=== PATIENT | female | born 1975 ===

== ENCOUNTER 2020-08-30 13:56 | Outpatient (REF) | payer OTHER, SELFPAY | END 2020-08-30 13:57 | disposition home or self-care (01) | LOC: HO.LAB 13:56 | PROVIDERS: Visit Provider Internal Medicine | DX: Z20.828 Contact with and (suspected) exposure to other viral communicable diseases (principal) | CPT/HCPCS: C9803; U0003 ==

== ENCOUNTER 2020-08-31 16:00 | Outpatient (REF) | payer OTHER, SELFPAY ==
[2020-08-31 17:34] LABS: TSH reflex Free T4 1.42 mIU/mL (0.32-4.0)
== END 2020-08-31 16:01 | disposition home or self-care (01) ==
LOC: HO.LAB 16:00
PROVIDERS: PCP Internal Medicine; Visit Provider Internal Medicine
DX: E03.9 Hypothyroidism, unspecified (principal)
CPT/HCPCS: 84443

== ENCOUNTER 2020-10-02 09:49 | Outpatient (REF) | payer OTHER, SELFPAY ==
--- NOTE | 2020-10-02 09:53 | MM_ITS ---
EXAMINATION: MM SCREENING DIGITAL BREAST TOMOSYNTHESIS, BILATERAL CLINICAL INFORMATION: Screening. Asymptomatic. The lifetime risk of breast cancer based on the Tyrer-Cuzick Model is 13.5%. COMPARISON: Mammography: None TECHNIQUE: Digital breast tomosynthesis is performed in both the craniocaudal and mediolateral oblique views along with computer-aided detection (CAD). Synthesized 2D images are generated from the tomosynthesis. FINDINGS: There are scattered areas of fibroglandular density (ACR BI-RADS breast composition Category b). There are no significant masses, abnormal calcifications, or other abnormalities. MM/MM tomosynthesis screening BI IMPRESSION: There are no significant changes from prior study. ASSESSMENT: BI-RADS 1: Negative RECOMMENDATION: Routine annual mammography screening. This patient's information was entered into a reminder system with a target due date for their next mammogram.
== END 2020-10-02 09:50 | disposition home or self-care (01) ==
LOC: HO.MAMMO 09:49
PROVIDERS: PCP Internal Medicine; Visit Provider Internal Medicine
DX: Z12.31 Encounter for screening mammogram for malignant neoplasm of breast (principal)
CPT/HCPCS: 77063; 77067

== ENCOUNTER 2020-12-27 05:04 | Emergency (ER) | payer OTHER, SELFPAY ==
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
[2020-12-27 05:50] VITALS: BP 115/75; PULSE 73; RESP 18; TEMP 36.6; O2SAT 99; BMI 27.1
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
== END 2020-12-27 07:06 | disposition home or self-care (01) ==
PROVIDERS: Emergency Provider Emergency Medicine; PCP Internal Medicine
DX: S13.4XXA Sprain of ligaments of cervical spine, initial encounter (principal); S39.012A Strain of muscle, fascia and tendon of lower back, initial encounter; S29.012A Strain of muscle and tendon of back wall of thorax, initial encounter; V43.62XA Car passenger injured in collision with other type car in traffic accident, initial encounter; Y93.89 Activity, other specified; Y92.414 Local residential or business street as the place of occurrence of the external cause; Y99.9 Unspecified external cause status
CPT/HCPCS: 72040; 72070; 72100; 99283

== ENCOUNTER → 2021-01-13 14:29 | Outpatient (BNVA) | payer OTHER, SELFPAY | PROVIDERS: PCP Internal Medicine; Referring Provider Internal Medicine; Visit Provider Physician Assistant | DX: Z90.3 Acquired absence of stomach [part of] (principal); K91.2 Postsurgical malabsorption, not elsewhere classified; M79.3 Panniculitis, unspecified; Z98.84 Bariatric surgery status | CPT/HCPCS: 99212 ==

== ENCOUNTER 2021-01-29 10:21 | Outpatient (REF) | payer OTHER, SELFPAY ==
[2021-01-29 10:57] LABS: MANUAL DIFF FLAG NO
[2021-01-29 11:03] LABS: Basophils Percent Auto 0.8 % (0-2); Eosinophils Absolute Auto 0.1 X10*3/uL (0.0-0.4); Eosinophils Percent Auto 1.4 % (0-4); Hemoglobin 12.7 g/dl (12.0-16.0); Imm Gran Abs Auto 0.01 X10*3/uL (0.00-0.03); Imm Gran Pct Auto 0.2 % (0.0-0.4); Lymphocytes Absolute Auto 1.7 X10*3/uL (1.2-4.9); Lymphocytes Percent Auto 35.3 % (20-40); Mean Corpuscular HGB Conc 31.8 g/dl (31.0-35.0); Mean Corpuscular Hemoglobin 29.9 pg (27.0-33.0); Mean Corpuscular Volume 94.1 fL (80-98); Mean Platelet Volume 10.5 fL (9.4-12.3); Monocytes Absolute Auto 0.5 X10*3/uL (0.1-1.2); Monocytes Percent Auto 10.3 % (2-11); Neutrophils Absolute Auto 2.5 X10*3/uL (2.0-8.3); Platelet Count 296 X10*3/uL (160-400); Red Blood Count 4.25 X10*6/uL (4.20-5.50); Red Cell Distribution Width 12.2 % (11.0-16.0); White Blood Count 4.9 X10*3/uL (4.8-10.8)
[2021-01-29 11:09] LABS: Estimated Average Glucose 91 mg/dL; Hemoglobin A1c % 4.8 %
[2021-01-29 11:28] LABS: Alanine Aminotransferase 22 U/L (0-31); Albumin Level 4.3 g/dL (3.5-5.0); Alkaline Phosphatase 76 U/L (39-117); Anion Gap 9 (12-20); Aspartate Amino Transferase 19 U/L (5-31); Bilirubin Total 0.5 mg/dL (0.0-1.0); Blood Urea Nitrogen 16 mg/dL (9-16); C Reactive Protein 0.08 mg/dL (< or = 0.50); Calcium 9.7 mg/dL (8.4-10.2); Carbon Dioxide 30 mmol/L (22-29); Chloride 107 mmol/L (96-108); Cholesterol 182 mg/dL; Estimated Glomerular Filt Rate > 60; Glucose Fasting 84 mg/dL (60-99); HDL Cholesterol 59 mg/dL; Iron 102 mcg/dL (30-160); LDL Cholesterol Calculated 113 mg/dl; Percent Iron Saturation 30 % (15-50); Potassium 4.2 mmol/L (3.3-5.1); Sodium 142 mmol/L (135-145); Total Iron Binding Capacity 339 mcg/dL (228-428); Total Protein 6.8 g/dL (6.5-8.0); Triglycerides 50 mg/dL; Unsaturated Iron Binding 237 ug/dL
[2021-01-29 11:39] LABS: Ferritin 123 ng/mL (10-250); TSH reflex Free T4 0.96 uIU/mL (0.32-4.0); Vitamin D 25-OH Total 28.2 ng/mL (>30)
[2021-02-01 03:52] LABS: Folate 8.4 ng/mL (> or = 4.0); Vitamin B12 872 pg/mL (200-900)
[2021-02-01 13:33] LABS: Calcium (PTHI) 9.7 mg/dL (8.6-10.2); PTHI 63 pg/mL (14-64)
[2021-02-02 14:01] LABS: Zinc 65 mcg/dL (60-130)
[2021-02-03 10:56] LABS: Vitamin A 29 mcg/dL (38-98)
[2021-02-03 11:22] LABS: Vitamin B1 23 nmol/L (8-30)
== END 2021-01-29 10:22 | disposition home or self-care (01) ==
LOC: HO.LAB 10:21
PROVIDERS: PCP Internal Medicine; Visit Provider Physician Assistant
DX: K91.2 Postsurgical malabsorption, not elsewhere classified (principal); E66.01 Morbid (severe) obesity due to excess calories; Z90.3 Acquired absence of stomach [part of]; Z98.84 Bariatric surgery status
CPT/HCPCS: 36415; 80053; 80061; 82306; 82607; 82728; 82746; 83036; 83525; 83540; 83970; 84425; 84443; 84590; 84630; 85025; 86140

== ENCOUNTER → 2021-02-11 15:40 | Outpatient (BNVA) | payer OTHER, SELFPAY | PROVIDERS: PCP Internal Medicine; Referring Provider Internal Medicine; Visit Provider Dietitian, Registered | DX: E66.3 Overweight (principal); Z68.26 Body mass index [BMI] 26.0-26.9, adult | CPT/HCPCS: 97802 ==

== ENCOUNTER → 2021-02-22 15:29 | Outpatient (BNVA) | payer OTHER, SELFPAY | PROVIDERS: PCP Internal Medicine; Visit Provider Physician Assistant | DX: K91.2 Postsurgical malabsorption, not elsewhere classified (principal); M79.3 Panniculitis, unspecified; Z90.3 Acquired absence of stomach [part of]; Z98.84 Bariatric surgery status | CPT/HCPCS: 99212 ==

== ENCOUNTER → 2021-06-02 13:54 | Outpatient (BNVA) | payer OTHER, SELFPAY | PROVIDERS: PCP Internal Medicine; Referring Provider Internal Medicine; Visit Provider Physician Assistant Surgical | DX: E66.3 Overweight (principal); M79.3 Panniculitis, unspecified; Z98.84 Bariatric surgery status; Z68.29 Body mass index [BMI] 29.0-29.9, adult | CPT/HCPCS: 99212 ==

== ENCOUNTER 2021-09-26 09:22 | Outpatient (REF) | payer OTHER, SELFPAY ==
[2021-09-26 09:51] LABS: Binax Internal Control QC Valid; Binax Now Covid-19 Ag Negative (Negative)
== END 2021-09-26 09:23 | disposition home or self-care (01) ==
LOC: HO.LAB 09:22
PROVIDERS: PCP Student in an Organized Health Care Education/Training Program; Visit Provider Internal Medicine
DX: Z20.822 Contact with and (suspected) exposure to COVID-19 (principal)
CPT/HCPCS: C9803

== ENCOUNTER 2021-10-22 10:17 | Outpatient (REF) | payer OTHER, SELFPAY ==
--- NOTE | ~2021-10-22 | MM_ITS ---
EXAMINATION: MM SCREENING DIGITAL BREAST TOMOSYNTHESIS, BILATERAL CLINICAL INFORMATION: Screening. Asymptomatic. The lifetime risk of breast cancer based on the Tyrer-Cuzick Model is 10%. COMPARISON: Mammography: 10/02/2020 (baseline). TECHNIQUE: Digital breast tomosynthesis is performed in both the craniocaudal and mediolateral oblique views along with computer-aided detection (CAD). Synthesized 2D images are generated from the tomosynthesis. FINDINGS: There are scattered areas of fibroglandular density (ACR BI-RADS breast composition Category b). There are no significant masses, abnormal calcifications, or other abnormalities. Parenchymal pattern is similar to prior baseline exam. The axilla and skin contours are unremarkable. There are no significant changes. MM/MM tomosynthesis screening BI IMPRESSION: No mammographic evidence of malignancy. ASSESSMENT: BI-RADS 1: Negative RECOMMENDATION: Routine annual mammography screening. This patient's information was entered into a reminder system with a target due date for their next mammogram.
== END 2021-10-22 10:18 | disposition home or self-care (01) ==
LOC: HO.MAMMO 10:17
PROVIDERS: PCP Internal Medicine; Visit Provider Internal Medicine
DX: Z12.31 Encounter for screening mammogram for malignant neoplasm of breast (principal)
CPT/HCPCS: 77063; 77067

== ENCOUNTER 2021-12-08 06:06 | Outpatient (REF) | payer OTHER, SELFPAY ==
[2021-12-08 08:21] LABS: Alanine Aminotransferase 27 U/L (0-31); Albumin Level 4.1 g/dL (3.5-5.0); Alkaline Phosphatase 73 U/L (39-117); Anion Gap 11 (12-20); Aspartate Amino Transferase 23 U/L (5-31); Blood Urea Nitrogen 14 mg/dL (9-16); Calcium 9.8 mg/dL (8.4-10.2); Carbon Dioxide 28 mmol/L (22-29); Chloride 105 mmol/L (96-108); Cholesterol 220 mg/dL; Estimated Glomerular Filt Rate > 60; Glucose Fasting 79 mg/dL (60-99); HDL Cholesterol 60 mg/dL; LDL Cholesterol Calculated 150 mg/dl; Potassium 4.4 mmol/L (3.3-5.1); Sodium 140 mmol/L (135-145); Total Protein 6.9 g/dL (6.5-8.0); Triglycerides 52 mg/dL
[2021-12-08 08:43] LABS: TSH reflex Free T4 2.21 uIU/mL (0.32-4.0)
[2021-12-08 08:45] LABS: Thyroid Stimulating Hormone 2.12 uIU/mL (0.32-4.0)
== END 2021-12-08 06:07 | disposition home or self-care (01) ==
LOC: HO.LAB 06:06
PROVIDERS: PCP Internal Medicine; Visit Provider Internal Medicine
DX: E03.9 Hypothyroidism, unspecified (principal); E66.9 Obesity, unspecified; Z68.31 Body mass index [BMI] 31.0-31.9, adult
CPT/HCPCS: 36415; 80053; 80061; 84443

== ENCOUNTER → 2022-01-24 13:53 | Outpatient (BNVA) | payer OTHER, SELFPAY | PROVIDERS: PCP Internal Medicine; Visit Provider Physician Assistant | DX: M65.332 Trigger finger, left middle finger (principal) | CPT/HCPCS: 20550; 99202; J1100 ==

== ENCOUNTER 2022-02-18 07:26 | Outpatient (REF) | payer OTHER, SELFPAY ==
--- NOTE | ~2022-02-18 | XR_ITS ---
EXAMINATION: XR CHEST CLINICAL INFORMATION: Asthma COMPARISON: None TECHNIQUE: 2 views of the chest were obtained. FINDINGS: The lungs are clear. No hyperinflation. No airspace consolidation or groundglass opacity. The costophrenic sulci are well-defined. The heart is normal in size and the hilar and mediastinal contours are normal. No acute bony abnormality. XR/XR chest 2V IMPRESSION: Unremarkable examination.
[2022-02-18 08:30] LABS: Estimated Average Glucose 97 mg/dL
[2022-02-18 08:50] LABS: Alanine Aminotransferase 21 U/L (0-31); Albumin Level 4.3 g/dL (3.5-5.0); Alkaline Phosphatase 74 U/L (39-117); Anion Gap 11 (12-20); Aspartate Amino Transferase 21 U/L (5-31); Bilirubin Total 0.6 mg/dL (0.0-1.0); Blood Urea Nitrogen 13 mg/dL (9-16); Calcium 9.6 mg/dL (8.4-10.2); Carbon Dioxide 29 mmol/L (22-29); Chloride 106 mmol/L (96-108); Estimated Glomerular Filt Rate > 60; Glucose Random 91 mg/dL (60-115); Potassium 4.4 mmol/L (3.3-5.1); Sodium 142 mmol/L (135-145)
[2022-02-18 09:15] LABS: Free T4 (Free Thyroxine) 1.31 ng/dL (0.71-1.85); HCG Quantitative < 2 mIU/mL; Thyroid Stimulating Hormone 1.49 uIU/mL (0.32-4.0)
[2022-02-21 04:18] LABS: Triiodothyronine T3 Free 3.2 pg/mL (2.3-4.2)
== END 2022-02-18 07:27 | disposition home or self-care (01) ==
LOC: HO.XRAY 07:26
PROVIDERS: Absent Provider Internal Medicine; PCP Internal Medicine; Visit Provider Plastic Surgery
DX: Z01.818 Encounter for other preprocedural examination (principal)
CPT/HCPCS: 36415; 71046; 80053; 83036; 84439; 84443; 84481; 84702

== ENCOUNTER 2022-02-20 06:21 | Outpatient (REF) | payer OTHER, SELFPAY ==
--- NOTE | 2022-02-20 | ECG_ITS ---
Test Reason : ABDOMINOPLASTY Blood Pressure : / mmHG Vent. Rate : 067 BPM Atrial Rate : 067 BPM P-R Int : 158 ms QRS Dur : 086 ms QT Int : 388 ms P-R-T Axes : -03 026 001 degrees QTc Int : 409 ms Normal sinus rhythm Normal ECG No previous ECGs available Referred By: Danay [place] Electronically Signed By:EMILIA LI MD
[2022-02-20 07:02] LABS: MANUAL DIFF FLAG NO
[2022-02-20 07:35] LABS: Basophils Percent Auto 0.8 % (0-2); Eosinophils Absolute Auto 0.1 X10*3/uL (0.0-0.4); Eosinophils Percent Auto 1.4 % (0-4); Hematocrit 40.4 % (37.0-47.0); Imm Gran Abs Auto 0.01 X10*3/uL (0.00-0.03); Imm Gran Pct Auto 0.2 % (0.0-0.4); Lymphocytes Absolute Auto 1.6 X10*3/uL (1.2-4.9); Mean Corpuscular HGB Conc 32.2 g/dl (31.0-35.0); Mean Corpuscular Hemoglobin 29.5 pg (27.0-33.0); Mean Corpuscular Volume 91.6 fL (80.0-98.0); Mean Platelet Volume 10.5 fL (9.4-12.3); Monocytes Absolute Auto 0.5 X10*3/uL (0.1-1.2); Monocytes Percent Auto 11.1 % (2-11); Neutrophils Absolute Auto 2.6 x10*3/uL (2.0-8.3); Neutrophils Percent Auto 53.5 % (45-73); Platelet Count 282 X10*3/uL (160-400); Red Blood Count 4.41 X10*6/uL (4.20-5.50); Red Cell Distribution Width 12.2 % (11.0-16.0); White Blood Count 4.9 X10*3/uL (4.8-10.8)
[2022-02-20 08:01] LABS: INTERNATIONAL NORM RATIO 1.1 (0.9-1.1); Prothrombin Time 12.2 SEC (9.9-13.0)
[2022-02-20 08:23] LABS: Alanine Aminotransferase 23 U/L (0-31); Albumin Level 4.2 g/dL (3.5-5.0); Alkaline Phosphatase 70 U/L (39-117); Anion Gap 10 (12-20); Aspartate Amino Transferase 22 U/L (5-31); Bilirubin Total 0.5 mg/dL (0.0-1.0); Blood Urea Nitrogen 15 mg/dL (9-16); Calcium 9.6 mg/dL (8.4-10.2); Carbon Dioxide 28 mmol/L (22-29); Chloride 106 mmol/L (96-108); Cholesterol 194 mg/dL; Estimated Glomerular Filt Rate > 60; Glucose Fasting 93 mg/dL (60-99); HDL Cholesterol 53 mg/dL; LDL Cholesterol Calculated 125 mg/dl; Potassium 4.3 mmol/L (3.3-5.1); Sodium 140 mmol/L (135-145); Total Protein 6.9 g/dL (6.5-8.0); Triglycerides 81 mg/dL
[2022-02-20 08:35] LABS: Appearance Urine CLEAR; Color Urine YELLOW; Glucose Urine UA NEG (NEG); Leukocyte Esterase Urine NEG (NEG); Nitrite Urine NEG (NEG); Specific Gravity - Urine <= 1.005 (1.005-1.025); UACC Culture Trigger NO; Urine Blood TRACE (NEG); Urine Ketones NEG (NEG); Urine Protein NEG (NEG-TRACE)
[2022-02-20 08:57] LABS: RBC Urine 0-2 /HPF (0); WBC Urine 0 /HPF (0-4)
[2022-02-20 09:15] LABS: HBS Num1 0.91 mIU/mL (0-7.99); HBc Num1 0.06 S/CO (0.00-0.79); HBsAGNum1 0.16 S/CO (0.00-0.99); HIV AB/AG Nonreactive (Nonreactive); HIV Num 1 0.08 S/CO (0.00-0.99); Hepatitis B Core Antibody Nonreactive (Nonreactive); Hepatitis B Surface Antigen Negative (Negative); ~HepC Num1 0.09 S/CO (0.00-0.79); ~Hepatitis B Surface Antibody NONREACTIVE (Nonreactive); ~Hepatitis C Antibody Nonreactive (Nonreactive)
[2022-02-20 16:42] LABS: INTERNATIONAL NORM RATIO 1.1 (0.9-1.1); Prothrombin Time 12.2 SEC (9.9-13.0)
[2022-02-20 16:45] LABS: Partial Thromboplastin Time 40.4 SEC (24.1-38.0)
[2022-02-20 16:47] LABS: Estimated Average Glucose 97 mg/dL
[2022-02-20 17:02] LABS: Alanine Aminotransferase 25 U/L (0-31); Albumin Level 4.3 g/dL (3.5-5.0); Alkaline Phosphatase 72 U/L (39-117); Anion Gap 12 (12-20); Aspartate Amino Transferase 25 U/L (5-31); Bilirubin Total 0.3 mg/dL (0.0-1.0); Blood Urea Nitrogen 16 mg/dL (9-16); Calcium 9.7 mg/dL (8.4-10.2); Carbon Dioxide 28 mmol/L (22-29); Chloride 105 mmol/L (96-108); Estimated Glomerular Filt Rate > 60; Glucose Random 113 mg/dL (60-115); Potassium 4.1 mmol/L (3.3-5.1); Sodium 141 mmol/L (135-145)
[2022-02-20 17:24] LABS: HCG Quantitative < 2 mIU/mL; TSH reflex Free T4 1.47 uIU/mL (0.32-4.0)
[2022-02-20 18:19] LABS: Appearance Urine CLEAR; Color Urine YELLOW; Glucose Urine UA NEG (NEG); Leukocyte Esterase Urine TRACE (NEG); Nitrite Urine NEG (NEG); PH 5.5 (5.0-8.0); Specific Gravity - Urine 1.025 (1.005-1.025); Urine Blood NEG (NEG); Urine Ketones NEG (NEG); Urine Protein NEG (NEG-TRACE)
[2022-02-20 18:26] LABS: Bacteria Urine 1+ /LPF; Squamous Epithelial Cell Urine 1+ /LPF
[2022-02-21 04:47] LABS: HIV AB/AG Nonreactive (Nonreactive); HIV Num 1 0.13 S/CO (0.00-0.99)
[2022-02-22 04:04] LABS: Hepatitis A Antibody IgM 0.18 Index (0-0.79); ~Hepatitis A Antibody IgM Nonreactive (Nonreactive)
[2022-02-22 09:02] LABS: Triiodothyronine T3 Free 3.2 pg/mL (2.3-4.2)
[2022-02-23 22:16] LABS: Prot Elec - Albumin 4.1 g/dL (3.8-4.8); Prot Elec - Alpha1 0.2 g/dL (0.2-0.3); Prot Elec - Alpha2 0.6 g/dL (0.5-0.9); Prot Elec - Beta 1 0.5 g/dL (0.4-0.6); Prot Elec - Beta 2 0.4 g/dL (0.2-0.5); Prot Elec - Gamma 0.9 g/dL (0.8-1.7); Prot Elec - Total Protein 6.7 g/dL (6.1-8.1)
== END 2022-02-20 06:22 | disposition home or self-care (01) ==
LOC: HO.LAB 06:21
PROVIDERS: PCP Internal Medicine; Visit Provider Internal Medicine
DX: Z01.818 Encounter for other preprocedural examination (principal); Z11.4 Encounter for screening for human immunodeficiency virus [HIV]; E66.9 Obesity, unspecified; Z68.31 Body mass index [BMI] 31.0-31.9, adult; E78.5 Hyperlipidemia, unspecified
CPT/HCPCS: 36415; 80053; 80061; 81001; 83036; 84165; 84443; 84481; 84702; 85025; 85610; 85730; 86704; 86706; 86709; 86803; 87340; 87389; 93005

== ENCOUNTER 2022-03-30 11:06 | Inpatient (IN) | payer OTHER, SELFPAY ==
--- NOTE | ~2022-03-30 | CT_ITS ---
EXAMINATION: CT ABDOMEN AND PELVIS WITHOUT CONTRAST CLINICAL INFORMATION: Status post abdominoplasty. Erythema and drainage. Evaluate for collection. COMPARISON: 02/13/2020 TECHNIQUE: Multidetector volumetric imaging was performed from the superior aspect of the liver through the pubic symphysis. Sagittal and coronal reformatted images were obtained on the technologist's workstation. No intravenous contrast was administered. This CT examination was performed using dose optimization techniques as appropriate, variously including the following: *Automated exposure control *Adjustment of mA and/or kV according to patient size (this includes techniques or standardized protocols for targeted exams where dose is matched to indication/reason for exam; i.e. extremities or head) *Use of iterative reconstruction technique DLP: 656 mGy-cm FINDINGS: Evaluation of the soft tissue structures is limited by the lack of intravenous contrast. LUNG BASES: The visualized lung bases are unremarkable. LIVER, GALLBLADDER, AND BILIARY TREE: The liver is normal in size, shape, and attenuation. No focal hepatic lesion or biliary ductal dilatation is present. The gallbladder is unremarkable with no evidence of radiopaque gallstones, gallbladder wall thickening, or obvious pericholecystic inflammatory changes. PANCREAS: Normal contour. SPLEEN: Not enlarged. ADRENAL GLANDS: Small left adrenal adenoma. KIDNEYS AND URETERS: Symmetric in size. No hydronephrosis or hydroureter. No renal calculus. No perinephric stranding. BLADDER: Unremarkable. GASTROINTESTINAL TRACT: Status post gastric bypass. Unopacified loops of small and large bowel are of normal caliber. No small bowel obstruction. Appendix is within normal limits. ABDOMINAL WALL: Status post abdominoplasty with expected postsurgical changes. There is skin thickening of the lower abdominal wall. There is a fluid collection within the subcutaneous fat of the lower abdominal wall measuring 8.3 x 2.0 x 5.9 cm. There is diffuse edema within the subcutaneous tissues of the mid to lower abdominal wall. There is a significant defect within the rectus abdominous musculature. There are 2 collections containing fluid and gas within the supraumbilical anterior abdominal wall measuring 1.0 x 2.1 x 2.0 cm and 1.9 x 1.0 x 2.0 cm. There is subcutaneous infiltration of the right lateral abdominal wall on image 25 series 3. LYMPH NODES: Prominent inguinal lymph nodes are likely on a reactive basis. VASCULAR: Normal caliber abdominal aorta. PELVIC VISCERA: Uterus is surgically absent. OSSEOUS STRUCTURES: No destructive bone lesions. CT/CT abdomen pelvis wo con IMPRESSION: Findings likely representing cellulitis involving the lower abdominal wall with extensive skin thickening and subcutaneous edema. There is a subcutaneous fluid collection measuring 8.3 x 2.0 x 5.9 cm. There are small collections containing fluid and gas in the supraumbilical region measuring 1.0 x 2.1 x 2.0 cm and 1.9 x 1.0 x 2.0 cm. Infection cannot be excluded.
[2022-03-30 11:36] VITALS: BP 104/72; PULSE 118; RESP 18; TEMP 37.2; O2SAT 97; BMI 29.7
--- NOTE | 2022-03-30 14:58 | ED.ABDPAIN ---
HPI - Abdominal Pain General Chief Complaint: Abdominal Pain Stated Complaint: abd pain Time Seen by Provider: 03/30/22 14:30 Source: patient Mode of arrival: ambulatory History of Present Illness HPI narrative: 46-year-old female who presents status post abdominal plasty on 03/16 in [facility] and is now complaining of purulence drainage from the incision site as well as abdominal pain. She denies any fevers or chills, dysuria, nausea, vomiting, diarrhea. Related Data Previous Rx's Medication Instructions Recorded levothyroxine 75 mcg tablet 75 mcg PO DAILY #90 tabs 02/19/22 Allergies Allergy/AdvReac Type Severity Reaction Status Date / Time No Known Allergies Allergy Verified 03/30/22 11:36 [No Known Allergies*] Review of Systems Review of Systems Pertinent positives and negatives as stated in HPI 10 point review of systems is otherwise negative. [facility] Past Medical History Source: nursing notes reviewed Medical History Class 1 obesity with body mass index (BMI) of 31.0 to 31.9 in adult Hypothyroidism Intestinal malabsorption following gastrectomy Muscle spasm Overweight Panniculitis Physical exam Pre-op evaluation Trigger finger, left middle finger URI (upper respiratory infection) Vitamin A deficiency Vitamin D deficiency Surgical History History of carpal tunnel release History of total abdominal hysterectomy and bilateral salpingo-oophorectomy S/P laparoscopic sleeve gastrectomy Family History Family History Father No problems noted. Mother Hypertension Paternal Aunt Breast cancer Paternal Grandfather Hypertension Diabetes CVD (cardiovascular disease) Stroke Social History Social History Housing: House Alcohol intake: never Patient Tobacco Use Status: Never used Tobacco e-Cigarette/Vaping Use: Never Used Second Hand Smoke Exposure: No Use of substances other than those prescribed or required for medical reasons: No Advance Directives: No Advance Directives Information Provided: No service: No Current occupational status: unemployed Current occupational exposures/hazards: No Cognitive needs: No Hearing needs: No Vision needs: Yes Physical Exam ED Vital Signs: Vital Signs - 24 hr 03/30/22 11:36 03/30/22 15:11 03/30/22 17:29 Temperature 98.9 F 99.4 F 99.6 F Pulse Rate 118 H 95 99 Respiratory Rate 18 18 14 Blood Pressure 104/72 116/71 118/80 Pulse Oximetry 97 100 98 Oxygen Delivery Method Room Air Room Air Room Air BMI result Body Mass Index 29.7 VITAL SIGNS: Reviewed. GENERAL: Well developed, well nourished, in no acute distress. HEAD: Normocephalic/atraumatic EYES: PERRLA, EOMI EARS: Ext canals without abnormality OROPHARYNX: no oral lesions noted, posterior pharynx clear LUNGS: Normal breath sounds. No adventitious sounds or accessory muscle use. SpO2<97> CARDIOVASCULAR: Regular rate and rhythm without noted murmurs ABDOMEN: Soft, non-tender, there is a well-healing incision noted across lower abdomen, however there is evidence of cellulitic/indurated skin changes on the superior aspect and on pressing very liquid, dark fluid is expressed, non-distended with bowel sounds. MUSCULOSKELETAL: No tenderness, deformities, or effusions noted on gross inspection. EXTREMITIES: No cyanosis, clubbing or edema. SKIN: Inspection of the skin reveals no rashes NEUROLOGIC: Alert and oriented x 4. Strength and sensation to light touch were grossly intact x 4. Course Course Course Narrative: 1500: 46-year-old female with history and clinical presentation consistent with possible cellulitis of the abdominal wall after abdomioplasty. Review of all investigations consistent with abdominal wall cellulitis as well as abscess versus seroma, patient received IV fluid/lactic acid/blood culture/antibiotics. This case was discussed with the on-call surgeon who accepts admission. MDM - Abdominal Pain Lab Data Result diagrams: 03/30/22 15:23 03/30/22 15:23 Labs: Lab Results 03/30/22 03/30/22 03/30/22 Range/Units 15:23 15:23 15:23 WBC 12.3 H (4.8-10.8) X10*3/uL RBC 3.65 L (4.20-5.50) X10*6/uL Hgb 10.5 L (12.0-16.0) g/dl Hct 33.0 L (37.0-47.0) % MCV 90.4 (80.0-98.0) fL MCH 28.8 (27.0-33.0) pg MCHC 31.8 (31.0-35.0) g/dl RDW 12.2 (11.0-16.0) % Plt Count 378 D (160-400) X10*3/uL MPV 9.7 (9.4-12.3) fL Immature Gran % (Auto) 0.3 (0.0-0.4) % Neut % (Auto) 75.8 H (45-73) % Lymph % (Auto) 13.5 L (20-40) % [place] % (Auto) 8.7 (2-11) % Eos % (Auto) 1.2 (0-4) % Baso % (Auto) 0.5 (0-2) % Lymph # (Auto) 1.7 (1.2-4.9) X10*3/uL [place] # (Auto) 1.1 (0.1-1.2) X10*3/uL Eos # (Auto) 0.2 (0.0-0.4) X10*3/uL Baso # (Auto) 0.1 (0.0-0.2) X10*3/uL Abs Immat Gran (auto) 0.04 H (0.00-0.03) X10*3/uL Absolute Neuts (auto) 9.4 H (2.0-8.3) x10*3/uL Absolute Nucleated RBC 0.000 (0.0-0.012) X10*3/uL Nucleated RBC % (auto) 0.0 (0.0-0.2) /100WBC Sodium 139 (135-145) mmol/L Potassium 4.0 (3.3-5.1) mmol/L Chloride 102 (96-108) mmol/L Carbon Dioxide 28 (22-29) mmol/L Anion Gap 13 (12-20) BUN 9 (9-16) mg/dL Creatinine 0.64 (0.5-1.4) mg/dL Estim Creat Clear Calc 118.2 Estimated GFR > 60 Random Glucose 98 (60-115) mg/dL Lactic Acid 0.7 (0.5-2.0) mmol/L Calcium 9.1 D (8.4-10.2) mg/dL Total Bilirubin 0.3 (0.0-1.0) mg/dL AST 16 (5-31) U/L ALT 17 (0-31) U/L Alkaline Phosphatase 69 (39-117) U/L Total Protein 6.4 L (6.5-8.0) g/dL Albumin 3.8 (3.5-5.0) g/dL Urine Color Urine Appearance Urine pH (5.0-8.0) Ur Specific [place] (1.005-1.025) Urine Protein (NEG-TRACE) MG/DL Urine Glucose (UA) (NEG) MG/DL Urine Ketones (NEG) MG/DL Urine Blood (NEG) Urine Nitrite (NEG) Ur Leukocyte Esterase (NEG) Urine Test (NEGATIVE) 03/30/22 03/30/22 Range/Units 16:25 16:25 WBC (4.8-10.8) X10*3/uL RBC (4.20-5.50) X10*6/uL Hgb (12.0-16.0) g/dl Hct (37.0-47.0) % MCV (80.0-98.0) fL MCH (27.0-33.0) pg MCHC (31.0-35.0) g/dl RDW (11.0-16.0) % Plt Count (160-400) X10*3/uL MPV (9.4-12.3) fL Immature Gran % (Auto) (0.0-0.4) % Neut % (Auto) (45-73) % Lymph % (Auto) (20-40) % [place] % (Auto) (2-11) % Eos % (Auto) (0-4) % Baso % (Auto) (0-2) % Lymph # (Auto) (1.2-4.9) X10*3/uL [place] # (Auto) (0.1-1.2) X10*3/uL Eos # (Auto) (0.0-0.4) X10*3/uL Baso # (Auto) (0.0-0.2) X10*3/uL Abs Immat Gran (auto) (0.00-0.03) X10*3/uL Absolute Neuts (auto) (2.0-8.3) x10*3/uL Absolute Nucleated RBC (0.0-0.012) X10*3/uL Nucleated RBC % (auto) (0.0-0.2) /100WBC Sodium (135-145) mmol/L Potassium (3.3-5.1) mmol/L Chloride (96-108) mmol/L Carbon Dioxide (22-29) mmol/L Anion Gap (12-20) BUN (9-16) mg/dL Creatinine (0.5-1.4) mg/dL Estim Creat Clear Calc Estimated GFR Random Glucose (60-115) mg/dL Lactic Acid (0.5-2.0) mmol/L Calcium (8.4-10.2) mg/dL Total Bilirubin (0.0-1.0) mg/dL AST (5-31) U/L ALT (0-31) U/L Alkaline Phosphatase (39-117) U/L Total Protein (6.5-8.0) g/dL Albumin (3.5-5.0) g/dL Urine Color YELLOW Urine Appearance CLEAR Urine pH 6.0 (5.0-8.0) Ur Specific [place] 1.015 (1.005-1.025) Urine Protein NEG (NEG-TRACE) MG/DL Urine Glucose (UA) NEG (NEG) MG/DL Urine Ketones NEG (NEG) MG/DL Urine Blood NEG (NEG) Urine Nitrite NEG (NEG) Ur Leukocyte Esterase NEG (NEG) Urine Test NEGATIVE (NEGATIVE) Discharge Plan Discharge Clinical Impression: Abdominal wall cellulitis, Fluid collection at surgical site Patient Disposition: Admitted As Inpatient Prescriptions: No Action levothyroxine 75 mcg tablet 75 mcg PO DAILY Qty: 90 1RF
[2022-03-30 15:11] VITALS: BP 116/71; PULSE 95; RESP 18; TEMP 37.4; O2SAT 100
[2022-03-30] MEDS: 0.9 % Sodium Chloride 1,000 ML 999 ML IV (15:24)
[2022-03-30 15:30] LABS: MANUAL DIFF FLAG NO
[2022-03-30 15:32] LABS: Basophils Absolute Auto 0.1 X10*3/uL (0.0-0.2); Basophils Percent Auto 0.5 % (0-2); Eosinophils Absolute Auto 0.2 X10*3/uL (0.0-0.4); Eosinophils Percent Auto 1.2 % (0-4); Hemoglobin 10.5 g/dl (12.0-16.0); Imm Gran Abs Auto 0.04 X10*3/uL (0.00-0.03); Imm Gran Pct Auto 0.3 % (0.0-0.4); Lymphocytes Absolute Auto 1.7 X10*3/uL (1.2-4.9); Lymphocytes Percent Auto 13.5 % (20-40); Mean Corpuscular HGB Conc 31.8 g/dl (31.0-35.0); Mean Corpuscular Hemoglobin 28.8 pg (27.0-33.0); Mean Corpuscular Volume 90.4 fL (80.0-98.0); Mean Platelet Volume 9.7 fL (9.4-12.3); Monocytes Absolute Auto 1.1 X10*3/uL (0.1-1.2); Monocytes Percent Auto 8.7 % (2-11); Neutrophils Absolute Auto 9.4 x10*3/uL (2.0-8.3); Neutrophils Percent Auto 75.8 % (45-73); Platelet Count 378 X10*3/uL (160-400); Red Blood Count 3.65 X10*6/uL (4.20-5.50); Red Cell Distribution Width 12.2 % (11.0-16.0); White Blood Count 12.3 X10*3/uL (4.8-10.8)
[2022-03-30 15:48] LABS: Lactic Acid 0.7 mmol/L (0.5-2.0)
[2022-03-30 15:52] LABS: Alanine Aminotransferase 17 U/L (0-31); Albumin Level 3.8 g/dL (3.5-5.0); Alkaline Phosphatase 69 U/L (39-117); Anion Gap 13 (12-20); Aspartate Amino Transferase 16 U/L (5-31); Bilirubin Total 0.3 mg/dL (0.0-1.0); Blood Urea Nitrogen 9 mg/dL (9-16); Calcium 9.1 mg/dL (8.4-10.2); Carbon Dioxide 28 mmol/L (22-29); Chloride 102 mmol/L (96-108); Creatinine Clr Calc Pharmacy 118.2; Estimated Glomerular Filt Rate > 60; Glucose Random 98 mg/dL (60-115); Sodium 139 mmol/L (135-145); Total Protein 6.4 g/dL (6.5-8.0)
[2022-03-30 16:33] LABS: Appearance Urine CLEAR; Color Urine YELLOW; Glucose Urine UA NEG (NEG); Leukocyte Esterase Urine NEG (NEG); Nitrite Urine NEG (NEG); Specific Gravity - Urine 1.015 (1.005-1.025); Urine Blood NEG (NEG); Urine Ketones NEG (NEG); Urine Protein NEG (NEG-TRACE)
[2022-03-30 16:35] LABS: UPreg QC Valid YES; Urine Pregnancy NEGATIVE (NEGATIVE)
[2022-03-30 17:29] VITALS: BP 118/80; PULSE 99; RESP 14; TEMP 37.6; O2SAT 98
[2022-03-30] MEDS: Piperacillin Sodium/Tazobactam 3.375 GM in 0.9 % Sodium Chloride 50 ML IV ×2 (17:31→22:42)
[2022-03-30 18:38] LABS: COVID-19 Test Negative (Negative)
--- NOTE | 2022-03-30 19:08 | PHA.MEDREC ---
Pharmacy Consult ? Medication Reconciliation Pharmacy has completed the medication reconciliation.
--- NOTE | 2022-03-30 20:06 | PM.HPGS ---
History of Present Illness History of Present Illness Date of Service: 03/30/22 Chief complaint: abd pain Narrative: Marie Thurman is a 46 year old female who on 03/16 had abdominoplasty and bilateral brachioplasty in [place] - about 5 years ago had gastric bypass in [place] and lost 100lbs. Left [place] and returned to [place] in and yesterday felt abdomen firm and draining fluid. came to ER now. no fever. arm wounds doing well. talked to her surgeon who told her to stop wearing abdo binder and come to the ER. otherwise healthy Review of Systems Review of Systems: Yes all other systems are reviewed and are negative PMFSH Past Medical History Medical History Class 1 obesity with body mass index (BMI) of 31.0 to 31.9 in adult Hypothyroidism Intestinal malabsorption following gastrectomy Muscle spasm Overweight Panniculitis Physical exam Pre-op evaluation Trigger finger, left middle finger URI (upper respiratory infection) Vitamin A deficiency Vitamin D deficiency Family History Family History Father No problems noted. Mother Hypertension Paternal Aunt Breast cancer Paternal Grandfather Hypertension Diabetes CVD (cardiovascular disease) Stroke Surgical History Surgical History History of carpal tunnel release History of total abdominal hysterectomy and bilateral salpingo-oophorectomy S/P laparoscopic sleeve gastrectomy Social History Social History Housing: House Alcohol intake: never Patient Tobacco Use Status: Never used Tobacco e-Cigarette/Vaping Use: Never Used Second Hand Smoke Exposure: No Use of substances other than those prescribed or required for medical reasons: No Advance Directives: No Advance Directives Information Provided: No service: No Current occupational status: unemployed Current occupational exposures/hazards: No Cognitive needs: No Hearing needs: No Vision needs: Yes Meds Allergies Allergy/AdvReac Type Severity Reaction Status Date / Time No Known Allergies Allergy Verified 03/30/22 11:36 [No Known Allergies*] Physical Exam Vital Signs: Vital Signs: Last Vital Signs Temp 99.6 F 03/30/22 17:29 Pulse 99 03/30/22 17:29 Resp 14 07/28/22 17:29 BP 118/80 03/30/22 17:29 Pulse Ox 98 03/30/22 17:29 O2 Del Method 03/30/22 17:29 BMI result Body Mass Index 29.7 Const: General: cooperative, healthy appearing, comfortable and no acute distress Orientation/consciousness: oriented to person, oriented to place and oriented to time HEENT: Head: Yes normal to inspection Eyes: General: appearance normal, both eyes and all related structures Resp: Effort & Inspection: normal respiratory effort Auscultation: clear to auscultation bilaterally Cardio: Rate: regular rate Rhythm: regular rhythm GI: Other: soft nontender nondistended Skin: Other: brachioplasty incisions look good the abdominal midline area has erythematous changes consistent with cellulitis. there is some drainage of cloudy yellow fluid consistent with fat necrosis does not look like abscess fluid umbilical incision looks ok mid abdomen along the incision with indurated tissue but not tender Neuro: General: oriented to person, oriented to place and oriented to time Extrem: General: Yes normal to inspection and Yes full ROM Results Results Labs: Short CBC 03/30/22 Range/Units 15:23 WBC 12.3 H (4.8-10.8) X10*3/uL Hgb 10.5 L (12.0-16.0) g/dl Hct 33.0 L (37.0-47.0) % Plt Count 378 D (160-400) X10*3/uL BMP 03/30/22 15:23 Sodium 139 Potassium 4.0 Chloride 102 Carbon Dioxide 28 BUN 9 Creatinine 0.64 Calcium 9.1 D Liver Function 03/30/22 Range/Units 15:23 Total Bilirubin 0.3 (0.0-1.0) mg/dL AST 16 (5-31) U/L ALT 17 (0-31) U/L Alkaline Phosphatase 69 (39-117) U/L Albumin 3.8 (3.5-5.0) g/dL Urine 03/30/22 03/30/22 Range/Units 16:25 16:25 Urine Color YELLOW Urine Appearance CLEAR Urine pH 6.0 (5.0-8.0) Ur Specific [place] 1.015 (1.005-1.025) Urine Protein NEG (NEG-TRACE) MG/DL Urine Glucose (UA) NEG (NEG) MG/DL Urine Test NEGATIVE (NEGATIVE) Abdomen CT scan report/results: report reviewed and image reviewed CT scan - pelvis: report reviewed and image reviewed Assessment and Plan (1) Abdominal wall cellulitis: Status: Acute Plan 46 year old female s/p 2 weeks abdominoplasty and bilateral brachioplasty in [place] with some abdominal cellulitis and seroma - doubt infection /abscess at this point admit , iv zosy and watch. if worsens despite antibiotics consider opening small area of incision and draining seroma fluid/fat necrosis - at this point i dont think its a true abscess explained to pt who understands and agrees with the plan Quality Stroke Does the patient have a stroke diagnosis?: No VTE Prior VTE?: No VTE Risk Level:: Surgical - low VTE Device Contraindication: N/A - Device Ordered VTE Drug Contraindication: Treatment Not Indicated Procedures Date of Service Date of Service: 03/30/22
[2022-03-30 22:00] VITALS: BP 104/55; PULSE 101; RESP 16; TEMP 37.3; O2SAT 98
[2022-03-31] MEDS: Piperacillin Sodium/Tazobactam 3.375 GM in 0.9 % Sodium Chloride 50 ML IV ×4 (05:41→23:03)
[2022-03-31 05:43] VITALS: BP 99/61; PULSE 78; RESP 14; O2SAT 98
[2022-03-31 06:42] LABS: MANUAL DIFF FLAG NO
[2022-03-31 06:50] LABS: Basophils Absolute Auto 0.1 X10*3/uL (0.0-0.2); Basophils Percent Auto 0.7 % (0-2); Eosinophils Absolute Auto 0.3 X10*3/uL (0.0-0.4); Eosinophils Percent Auto 2.4 % (0-4); Hematocrit 29.6 % (37.0-47.0); Hemoglobin 9.5 g/dl (12.0-16.0); Imm Gran Abs Auto 0.04 X10*3/uL (0.00-0.03); Imm Gran Pct Auto 0.4 % (0.0-0.4); Lymphocytes Absolute Auto 1.6 X10*3/uL (1.2-4.9); Lymphocytes Percent Auto 15.3 % (20-40); Mean Corpuscular HGB Conc 32.1 g/dl (31.0-35.0); Mean Corpuscular Hemoglobin 28.9 pg (27.0-33.0); Mean Platelet Volume 9.8 fL (9.4-12.3); Monocytes Percent Auto 9.5 % (2-11); Neutrophils Absolute Auto 7.5 x10*3/uL (2.0-8.3); Neutrophils Percent Auto 71.7 % (45-73); Platelet Count 366 X10*3/uL (160-400); Red Blood Count 3.29 X10*6/uL (4.20-5.50); Red Cell Distribution Width 12.2 % (11.0-16.0); White Blood Count 10.5 X10*3/uL (4.8-10.8)
[2022-03-31 09:58] VITALS: BP 105/59; PULSE 80; RESP 18; TEMP 36.9; O2SAT 98
[2022-03-31] MEDS: 0.9 % Sodium Chloride Flush 3 ML SYRINGE IVFLUSH ×2 (10:24→17:04)
[2022-03-31] MEDS: Acetaminophen 325 MG TABLET 650 MG PO ×2 (10:24→17:03)
[2022-03-31 11:45] VITALS: BP 106/58; PULSE 74; RESP 18; TEMP 36.7; O2SAT 99
--- NOTE | 2022-03-31 15:34 | P.PNGS_ITS ---
Subjective Subjective Date of Service: 03/31/22 Interval history: Says she is ?okay? No fever She says she is not worse Physical Exam Vital Signs: Vital Signs: Last Vital Signs Temp 98.1 F 03/31/22 11:45 Pulse 74 03/31/22 11:45 Resp 18 03/31/22 11:45 BP 106/58 L 03/31/22 11:45 Pulse Ox 99 03/31/22 11:45 O2 Del Method 03/31/22 11:45 BMI result Body Mass Index 29.7 Const: Other: Looks well General: comfortable and no acute distress Resp: Effort & Inspection: normal respiratory effort Cardio: Rate: regular rate GI: Other: Abdominoplasty site with some redness on the left side, no induration, no fluctu ance Objective Data Active Medications Acetaminophen (Acetaminophen 325 Mg Tablet) 650 mg PO Q6H PRN PRN Reason: Pain, Mild (Pain Scale 1-3) Last Admin: 03/31/22 10:24 Dose: 650 mg Documented By: NIRMAL Piperacillin Sod/Tazobactam (Sod 3.375 gm/ Sodium Chloride) 50 mls @ 100 mls/hr IV Q6H [facility] Last Infusion: 03/31/22 11:28 Dose: 0 mls/hr Documented By: NIRMAL Ondansetron HCl (Ondansetron Hcl 4 Mg/2 Ml Vial) 4 mg IVPUSH Q8H PRN PRN Reason: Nausea and Vomiting Sodium Chloride (0.9 % Sodium Chloride Flush 3 Ml Syringe) 3 ml IVFLUSH QSHIFT [facility] Last Admin: 03/31/22 10:24 Dose: 3 ml Documented By: NIRMAL Labs CBC & Chem 7: 03/31/22 06:07 03/30/22 15:23 Labs: Laboratory Results - last 24 hr 03/30/22 03/30/22 03/30/22 15:23 15:23 15:23 MCV 90.4 MCH 28.8 MCHC 31.8 RDW 12.2 Plt Count 378 D MPV 9.7 Immature Gran % (Auto) 0.3 Neut % (Auto) 75.8 H Lymph % (Auto) 13.5 L [place] % (Auto) 8.7 Eos % (Auto) 1.2 Baso % (Auto) 0.5 Lymph # (Auto) 1.7 [place] # (Auto) 1.1 Eos # (Auto) 0.2 Baso # (Auto) 0.1 Abs Immat Gran (auto) 0.04 H Absolute Neuts (auto) 9.4 H Absolute Nucleated RBC 0.000 Nucleated RBC % (auto) 0.0 Anion Gap 13 Estim Creat Clear Calc 118.2 Estimated GFR > 60 Random Glucose 98 Lactic Acid 0.7 Calcium 9.1 D Total Bilirubin 0.3 AST 16 ALT 17 Alkaline Phosphatase 69 Total Protein 6.4 L Albumin 3.8 Urine Color Urine Appearance Urine pH Ur Specific [place] Urine Protein Urine Glucose (UA) Urine Ketones Urine Blood Urine Nitrite Ur Leukocyte Esterase Urine Test COVID-19 (LAUREN) COVID-19 Clin Com 03/30/22 03/30/22 03/30/22 16:25 16:25 18:06 MCV MCH MCHC RDW Plt Count MPV Immature Gran % (Auto) Neut % (Auto) Lymph % (Auto) [place] % (Auto) Eos % (Auto) Baso % (Auto) Lymph # (Auto) [place] # (Auto) Eos # (Auto) Baso # (Auto) Abs Immat Gran (auto) Absolute Neuts (auto) Absolute Nucleated RBC Nucleated RBC % (auto) Anion Gap Estim Creat Clear Calc Estimated GFR Random Glucose Lactic Acid Calcium Total Bilirubin AST ALT Alkaline Phosphatase Total Protein Albumin Urine Color YELLOW Urine Appearance CLEAR Urine pH 6.0 Ur Specific [place] 1.015 Urine Protein NEG Urine Glucose (UA) NEG Urine Ketones NEG Urine Blood NEG Urine Nitrite NEG Ur Leukocyte Esterase NEG Urine Test NEGATIVE COVID-19 (LAUREN) Negative COVID-19 [place] Com See Note 03/31/22 06:07 MCV 90.0 MCH 28.9 MCHC 32.1 RDW 12.2 Plt Count 366 MPV 9.8 Immature Gran % (Auto) 0.4 Neut % (Auto) 71.7 Lymph % (Auto) 15.3 L [place] % (Auto) 9.5 Eos % (Auto) 2.4 Baso % (Auto) 0.7 Lymph # (Auto) 1.6 [place] # (Auto) 1.0 Eos # (Auto) 0.3 Baso # (Auto) 0.1 Abs Immat Gran (auto) 0.04 H Absolute Neuts (auto) 7.5 Absolute Nucleated RBC 0.000 Nucleated RBC % (auto) 0.0 Anion Gap Estim Creat Clear Calc Estimated GFR Random Glucose Lactic Acid Calcium Total Bilirubin AST ALT Alkaline Phosphatase Total Protein Albumin Urine Color Urine Appearance Urine pH Ur Specific [place] Urine Protein Urine Glucose (UA) Urine Ketones Urine Blood Urine Nitrite Ur Leukocyte Esterase Urine Test COVID-19 (LAUREN) COVID-19 Clin Com Procedures Date of Service Date of Service: 03/31/22 Progress Note: A&P Assessment and plan (1) Abdominal wall cellulitis: Status: Acute Assessment and Plan: Continue IV antibiotics No induration or fluctuance - will hold off on opening the wound She looks well Stable vital signs and nontoxic looking Explained to her the plan and she understands and is comfortable with this Time Spent With Patient Time: Total time spent is greater than 50% in coordination of care (as documented) at patient's floor/unit and/or counseling patient: Quality Stroke Does the patient have a stroke diagnosis?: No VTE Prior VTE?: No VTE Risk Level:: Surgical - low VTE Device Contraindication: N/A - Device Ordered VTE Drug Contraindication: Treatment Not Indicated
[2022-03-31 16:00] VITALS: BP 111/57; PULSE 84; RESP 18; TEMP 36.3; O2SAT 100
[2022-03-31 19:35] VITALS: BP 97/61; PULSE 85; RESP 18; TEMP 36.1; O2SAT 97
[2022-03-31] MEDS: oxyCODONE HCl Immed Release 5 MG TABLET PO (23:05)
[2022-04-01] MEDS: Piperacillin Sodium/Tazobactam 3.375 GM in 0.9 % Sodium Chloride 50 ML IV ×4 (05:29→23:30)
[2022-04-01 08:09] VITALS: BP 107/55; PULSE 80; RESP 16; TEMP 36.2; O2SAT 100
--- NOTE | 2022-04-01 08:21 | MHC.CM.PN ---
Addendum entered by Tawnaa Nixon 04/01/22 08:22: PT REPORTS SHE IS VACCINATED AGAINST COVID-19 WITH MODERNA Original Note: PT REPORTS SHE LIVES WITH HER DAUGHTER AND IS FULLY INDEPENDENT SHE DENIES USE OF DME OR HOME SERVICES PT CONFIRMS HER PCP IS DALE VELASQUEZ PT COMPLETED A HCP TODAY NAMING HER DAUGHTER, SOILA AND SISTER, AD HER AGENTS CURRENT DC PLAN IS HOME WITH NO SERVICES PT TO ARRANGE TRANSPORT
--- NOTE | 2022-04-01 09:27 | P.PNGS_ITS ---
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, some seromatous fluid, no pus Objective Data Active Medications Acetaminophen (Acetaminophen 325 Mg Tablet) 650 mg PO Q6H PRN PRN Reason: Pain, Mild (Pain Scale 1-3) Last Admin: 03/31/22 17:03 Dose: 650 mg Documented By: NIRMAL Piperacillin Sod/Tazobactam (Sod 3.375 gm/ Sodium Chloride) 50 mls @ 100 mls/hr IV Q6H [facility] Last Infusion: 04/01/22 06:11 Dose: 0 mls/hr Documented By: ANGEL Ondansetron HCl (Ondansetron Hcl 4 Mg/2 Ml Vial) 4 mg IVPUSH Q8H PRN PRN Reason: Nausea and Vomiting Oxycodone HCl (Oxycodone Hcl Immed Release 5 Mg Tablet) 5 mg PO Q4H PRN PRN Reason: Pain, Moderate (Pain Scale 4-6 Last Admin: 03/31/22 23:05 Dose: 5 mg Documented By: ANGEL Sodium Chloride (0.9 % Sodium Chloride Flush 3 Ml Syringe) [facility] Last Admin: 03/31/22 23:20 Dose: Not Given Documented By: ANGEL Non-Admin Reason: IV Running Labs CBC & Chem 7: 03/31/22 06:07 03/30/22 15:23 Microbiology Microbiology Results: Microbiology 03/30/22 15:42 Blood Culture - Preliminary Blood - Venous No growth after 24 hours. 03/30/22 15:23 Blood Culture - Preliminary Blood - Venous No growth after 24 hours. Procedures Date of Service Date of Service: 04/01/22 Progress Note: A&P Assessment and plan (1) Abdominal wall cellulitis: Status: Acute Assessment and Plan: from abdominoplasty redness had improved no purulence but with drainage c/w seroma cont IV abx today possibly switch to PO william Time Spent With Patient Time: Total time spent is greater than 50% in coordination of care (as documented) at patient's floor/unit and/or counseling patient: Quality Stroke Does the patient have a stroke diagnosis?: No VTE Prior VTE?: No VTE Risk Level:: Surgical - low VTE Device Contraindication: N/A - Device Ordered VTE Drug Contraindication: Treatment Not Indicated
[2022-04-01] MEDS: 0.9 % Sodium Chloride Flush 3 ML SYRINGE IVFLUSH ×2 (10:29→16:04)
[2022-04-01 11:31] VITALS: BP 109/63; PULSE 87; RESP 16; TEMP 36.3; O2SAT 99
[2022-04-01 15:53] VITALS: BP 115/71; PULSE 95; RESP 18; TEMP 38; O2SAT 99
[2022-04-01] MEDS: oxyCODONE HCl Immed Release 5 MG TABLET PO ×2 (16:03→23:34)
[2022-04-01 19:20] VITALS: BP 113/55; PULSE 88; RESP 18; TEMP 36.4; O2SAT 100
[2022-04-01 23:36] VITALS: BP 105/59; PULSE 94; RESP 18; TEMP 37.2; O2SAT 98
[2022-04-02 03:22] VITALS: BP 105/57; PULSE 84; RESP 18; TEMP 36.4; O2SAT 98
[2022-04-02] MEDS: Piperacillin Sodium/Tazobactam 3.375 GM in 0.9 % Sodium Chloride 50 ML IV ×4 (05:42→23:10)
[2022-04-02 07:06] VITALS: BP 109/60; PULSE 83; RESP 17; TEMP 36.9; O2SAT 98
[2022-04-02] MEDS: 0.9 % Sodium Chloride Flush 3 ML SYRINGE IVFLUSH ×3 (08:59→20:30)
[2022-04-02 11:23] VITALS: BP 111/58; PULSE 86; RESP 16; TEMP 36.9; O2SAT 98
--- NOTE | 2022-04-02 14:15 | P.PNGS_ITS ---
Subjective Subjective Date of Service: 04/02/22 Interval history: No new complaints Says she has occasional episodes of pain on the incision No fever Physical Exam Vital Signs: Vital Signs: Last Vital Signs Temp 98.4 F 04/02/22 11:23 Pulse 86 04/02/22 11:23 Resp 16 04/02/22 11:23 BP 111/58 L 04/02/22 11:23 Pulse Ox 98 04/02/22 11:23 O2 Del Method 04/02/22 11:23 BMI result Body Mass Index 29.7 Const: General: comfortable and no acute distress Resp: Effort & Inspection: normal respiratory effort Cardio: Rate: regular rate GI: Other: Some redness on the area of the abdominal plasty incision on the left side, no fluctuance Objective Data Active Medications Acetaminophen (Acetaminophen 325 Mg Tablet) 650 mg PO Q6H PRN PRN Reason: Pain, Mild (Pain Scale 1-3) Last Admin: 03/31/22 17:03 Dose: 650 mg Documented By: NIRMAL Piperacillin Sod/Tazobactam (Sod 3.375 gm/ Sodium Chloride) 50 mls @ 100 mls/hr IV Q6H [facility] Last Infusion: 04/02/22 12:01 Dose: 0 mls/hr Documented By: CLAU Ondansetron HCl (Ondansetron Hcl 4 Mg/2 Ml Vial) 4 mg IVPUSH Q8H PRN PRN Reason: Nausea and Vomiting Oxycodone HCl (Oxycodone Hcl Immed Release 5 Mg Tablet) 5 mg PO Q4H PRN PRN Reason: Pain, Moderate (Pain Scale 4-6 Last Admin: 04/01/22 23:34 Dose: 5 mg Documented By: ANGEL Sodium Chloride (0.9 % Sodium Chloride Flush 3 Ml Syringe) [facility] Last Admin: 04/02/22 08:59 Dose: 3 ml Documented By: CLAU Labs CBC & Chem 7: 03/31/22 06:07 03/30/22 15:23 Microbiology Microbiology Results: Microbiology 03/30/22 15:42 Blood Culture - Preliminary Blood - Venous No growth after 48 hours. 03/30/22 15:23 Blood Culture - Preliminary Blood - Venous No growth after 48 hours. Procedures Date of Service Date of Service: 04/02/22 Progress Note: A&P Assessment and plan (1) Abdominal wall cellulitis: Status: Acute Assessment and Plan: Cellulitis improving I probed the incision the Q-tip after prepping and draping with Betadine Seroma evacuated, no pus within the subcutaneous layer Dressings were applied She says she is not ready to be discharged today Plan DC home tomorrow on oral antibiotics Time Spent With Patient Time: Total time spent is greater than 50% in coordination of care (as documented) at patient's floor/unit and/or counseling patient: Quality Stroke Does the patient have a stroke diagnosis?: No VTE Prior VTE?: No VTE Risk Level:: Surgical - low VTE Device Contraindication: N/A - Device Ordered VTE Drug Contraindication: Treatment Not Indicated
[2022-04-02 14:58] VITALS: BP 110/70; PULSE 90; RESP 18; TEMP 36.6; O2SAT 98
[2022-04-02 19:26] VITALS: BP 107/58; PULSE 98; RESP 16; TEMP 35.9; O2SAT 98
[2022-04-02] MEDS: oxyCODONE HCl Immed Release 5 MG TABLET PO (20:23)
[2022-04-02 23:20] VITALS: BP 96/53; PULSE 75; RESP 16; TEMP 35.9; O2SAT 98
[2022-04-03 03:58] VITALS: BP 96/53; PULSE 76; RESP 16; TEMP 35.8; O2SAT 100
[2022-04-03] MEDS: Piperacillin Sodium/Tazobactam 3.375 GM in 0.9 % Sodium Chloride 50 ML IV (04:59)
[2022-04-03 07:02] VITALS: BP 116/57; PULSE 88; RESP 18; TEMP 36.2; O2SAT 99
--- NOTE | 2022-04-03 07:52 | PM.PNGS ---
Subjective Subjective Date of Service: 04/03/22 Interval history: feels much better says she is ready to go home pain better Physical Exam Vital Signs: Vital Signs: Last Vital Signs Temp 97.2 F 04/03/22 07:02 Pulse 88 04/03/22 07:02 Resp 18 04/03/22 07:02 BP 116/57 L 04/03/22 07:02 Pulse Ox 99 04/03/22 07:02 O2 Del Method 04/03/22 07:02 BMI result Body Mass Index 29.7 Const: General: comfortable and no acute distress Orientation/consciousness: patient oriented x3 Neck: Neck: Yes no lymphadenopathy Resp: Auscultation: clear to auscultation bilaterally Cardio: Rhythm: regular rhythm GI: Other: abdl wall cellulitis from abdominoplasty improving, redness fading, no fluctuance or induration Palpation (GI): Soft to palpation, nontender and no guarding Neuro: General: patient oriented x3 Objective Data Active Medications Acetaminophen (Acetaminophen 325 Mg Tablet) 650 mg PO Q6H PRN PRN Reason: Pain, Mild (Pain Scale 1-3) Last Admin: 03/31/22 17:03 Dose: 650 mg Documented By: NIRMAL Piperacillin Sod/Tazobactam (Sod 3.375 gm/ Sodium Chloride) 50 mls @ 100 mls/hr IV Q6H [facility] Last Infusion: 04/03/22 05:35 Dose: 0 mls/hr Documented By: GIOVANA Ondansetron HCl (Ondansetron Hcl 4 Mg/2 Ml Vial) 4 mg IVPUSH Q8H PRN PRN Reason: Nausea and Vomiting Oxycodone HCl (Oxycodone Hcl Immed Release 5 Mg Tablet) 5 mg PO Q4H PRN PRN Reason: Pain, Moderate (Pain Scale 4-6 Last Admin: 04/02/22 20:23 Dose: 5 mg Documented By: GIOVANA Sodium Chloride (0.9 % Sodium Chloride Flush 3 Ml Syringe) [facility] Last Admin: 04/02/22 20:30 Dose: 3 ml Documented By: GIOVANA Labs CBC & Chem 7: 03/31/22 06:07 03/30/22 15:23 Procedures Date of Service Date of Service: 04/03/22 Progress Note: A&P Assessment and plan (1) Abdominal wall cellulitis: Status: Acute Assessment and Plan: I had probed the area with a qtip, seroma drained ok to dc home PO abx she says she has a ffup with PCP this week wound care - dry dressings, explained to pt Time Spent With Patient Time: Total time spent is greater than 50% in coordination of care (as documented) at patient's floor/unit and/or counseling patient: Quality Stroke Does the patient have a stroke diagnosis?: No VTE Prior VTE?: No VTE Risk Level:: Surgical - low VTE Device Contraindication: N/A - Device Ordered VTE Drug Contraindication: Treatment Not Indicated
--- NOTE | 2022-04-03 08:30 | MHC.CM.PN ---
Patient has been medically cleared for dc to home today, self care.
--- NOTE | 2022-04-04 15:56 | PM.DS ---
DS: Providers Provider Date of Service: 04/03/22 Date of admission: 03/30/22 20:03 Primary care physician: Danay Birmingham MD DS: Diagnosis Discharge Diagnosis (1) Abdominal wall cellulitis: Status: Acute DS: Summary Hospital Course Hospital Course: 46 year old female, admitted on March 30, [address] Teixeira because of abdominal wall cellulitis. The patient had undergone abdominoplasty and brachioplasty in [place] 2 weeks before. She had notice redness and some scanty drainage from her abdominoplasty incision. There was note of seromatous drainage along with a small collection on CT scan. She was started on IV antibiotics. She had remained afebrile. She had some slow improvement of the redness around her incision. I opened up the incision with a Q-tip and drained some serosanguineous fluid consistent with a seroma. She had some pain control issues and required IV pain meds Eventually, she had significant improvement in her pain level. She was therefore discharged on 04/03/2022. Time Spent with Patient Time attestation: Total time spent providing and/or coordinating discharge services: Discharge coordination time: Less than 30 minutes Quality: Safe Use of Opioids Does Pt have an Active Cancer Diagnosis on the Problem List?: No Quality: Stroke Does the patient have a stroke diagnosis?: No Physical Exam Vital Signs: Vital Signs: Last Vital Signs Temp 97.2 F 04/03/22 07:02 Pulse 88 04/03/22 07:02 Resp 18 04/03/22 07:02 BP 116/57 L 04/03/22 07:02 Pulse Ox 99 04/03/22 07:02 O2 Del Method 04/03/22 07:02 BMI result Body Mass Index 29.7 Const: General: comfortable and no acute distress Orientation/consciousness: patient oriented x3 Neck: Neck: Yes no lymphadenopathy Resp: Auscultation: clear to auscultation bilaterally Cardio: Rhythm: regular rhythm GI: Other: mild residual redness around her abdominoplasty incision, no fluctuance, no induration Palpation (GI): Soft to palpation, nontender and no guarding Neuro: General: patient oriented x3 DS: Data Data Completed and Pending Completed studies during hospitalization [Text1]: Laboratory Results WBC 10.5 X10*3/uL (4.8-10.8) 07/29/22 06:07 RBC 3.29 X10*6/uL (4.20-5.50) L 03/31/22 06:07 Hgb 9.5 g/dl (12.0-16.0) L 03/31/22 06:07 Hct 29.6 % (37.0-47.0) L 03/31/22 06:07 MCV 90.0 fL (80.0-98.0) 03/31/22 06:07 MCH 28.9 pg (27.0-33.0) 03/31/22 06:07 MCHC 32.1 g/dl (31.0-35.0) 03/31/22 06:07 RDW 12.2 % (11.0-16.0) 03/31/22 06:07 Plt Count 366 X10*3/uL (160-400) 03/31/22 06:07 MPV 9.8 fL (9.4-12.3) 03/31/22 06:07 Immature Gran % (Auto) 0.4 % (0.0-0.4) 03/31/22 06:07 Neut % (Auto) 71.7 % (45-73) 03/31/22 06:07 Lymph % (Auto) 15.3 % (20-40) L 03/31/22 06:07 [place] % (Auto) 9.5 % (2-11) 03/31/22 06:07 Eos % (Auto) 2.4 % (0-4) 03/31/22 06:07 Baso % (Auto) 0.7 % (0-2) 03/31/22 06:07 Lymph # (Auto) 1.6 X10*3/uL (1.2-4.9) 03/31/22 06:07 [place] # (Auto) 1.0 X10*3/uL (0.1-1.2) 03/31/22 06:07 Eos # (Auto) 0.3 X10*3/uL (0.0-0.4) 03/31/22 06:07 Baso # (Auto) 0.1 X10*3/uL (0.0-0.2) 03/31/22 06:07 Abs Immat Gran (auto) 0.04 X10*3/uL (0.00-0.03) H 03/31/22 06:07 Absolute Neuts (auto) 7.5 x10*3/uL (2.0-8.3) 03/31/22 06:07 Absolute Nucleated RBC 0.000 X10*3/uL (0.0-0.012) 03/31/22 06:07 Nucleated RBC % (auto) 0.0 /100WBC (0.0-0.2) 03/31/22 06:07 Sodium 139 mmol/L (135-145) 03/30/22 15:23 Potassium 4.0 mmol/L (3.3-5.1) 03/30/22 15:23 Chloride 102 mmol/L (96-108) 03/30/22 15:23 Carbon Dioxide 28 mmol/L (22-29) 03/30/22 15:23 Anion Gap 13 (12-20) 03/30/22 15:23 BUN 9 mg/dL (9-16) 03/30/22 15:23 Creatinine 0.64 mg/dL (0.5-1.4) 03/30/22 15:23 Estim Creat Clear Calc 118.2 03/30/22 15:23 Estimated GFR > 60 03/30/22 15:23 Random Glucose 98 mg/dL (60-115) 03/30/22 15:23 Lactic Acid 0.7 mmol/L (0.5-2.0) 03/30/22 15:23 Calcium 9.1 mg/dL (8.4-10.2) D 03/30/22 15:23 Total Bilirubin 0.3 mg/dL (0.0-1.0) 03/30/22 15:23 AST 16 U/L (5-31) 03/30/22 15:23 ALT 17 U/L (0-31) 03/30/22 15:23 Alkaline Phosphatase 69 U/L (39-117) 03/30/22 15:23 Total Protein 6.4 g/dL (6.5-8.0) L 03/30/22 15:23 Albumin 3.8 g/dL (3.5-5.0) 03/30/22 15:23 Urine Color YELLOW 03/30/22 16:25 Urine Appearance CLEAR 03/30/22 16:25 Urine pH 6.0 (5.0-8.0) 03/30/22 16:25 Ur Specific [place] 1.015 (1.005-1.025) 03/30/22 16:25 Urine Protein NEG MG/DL (NEG-TRACE) 03/30/22 16:25 Urine Glucose (UA) NEG MG/DL (NEG) 03/30/22 16:25 Urine Ketones NEG MG/DL (NEG) 03/30/22 16:25 Urine Blood NEG (NEG) 03/30/22 16:25 Urine Nitrite NEG (NEG) 03/30/22 16:25 Ur Leukocyte Esterase NEG (NEG) 03/30/22 16:25 Urine Test NEGATIVE (NEGATIVE) 03/30/22 16:25 COVID-19 (LAUREN) Negative (Negative) 03/30/22 18:06 COVID-19 Clin Com See Note 03/30/22 18:06 Impressions Abdomen/Pelvis CT 03/30/22 16:30 IMPRESSION: Findings likely representing cellulitis involving the lower abdominal wall with extensive skin thickening and subcutaneous edema. There is a subcutaneous fluid collection measuring 8.3 x 2.0 x 5.9 cm. There are small collections containing fluid and gas in the supraumbilical region measuring 1.0 x 2.1 x 2.0 cm and 1.9 x 1.0 x 2.0 cm. Infection cannot be excluded. Labs on day of discharge: Preliminary micro results at discharge 03/30/22 15:42 Blood Culture - Preliminary Blood - Venous No growth after 48 hours. 03/30/22 15:23 Blood Culture - Preliminary Blood - Venous No growth after 48 hours. Discharge Plan Discharge Patient Disposition: Home, Self-Care Discharge Diagnosis: cellulitis Referrals: Danay Benítez MD [Primary Care Provider] - 1 Week Discharge Medications: New cephalexin 500 mg capsule 500 mg PO TID Qty: 18 0RF oxycodone-acetaminophen [Percocet] 5-325 mg tablet 1 tab PO Q4-6H PRN (Reason: pain) Qty: 12 0RF Rx Instructions: Partial Fill upon patient request. Continued levothyroxine 75 mcg tablet 75 mcg PO DAILY Qty: 90 1RF Discharge Orders: Discharge Order (Routine); Ordered 04/03/22 Ordered By: Jemal Ruvalcaba Activity on Discharge: As tolerated Stand Alone Forms: Patient Portal Discharge page Care Plan Goals: control cellulitis Health Concerns: postop cellulitis Plan of Treatment: oral antibiotics pain meds Assessment: improving Discharge Date/Time: 04/03/22 09:25
== END 2022-04-03 09:25 | disposition home or self-care (01) | DRG 711 ==
LOC: HO.ED 17:41 → HO.EDOVER 20:15 → HO.S3 03-31 07:23
PROVIDERS: Admitting Provider Surgery; Emergency Provider Student in an Organized Health Care Education/Training Program; PCP Internal Medicine; Visit Provider Surgery
DX: T81.41XA Infection following a procedure, superficial incisional surgical site, initial encounter (principal); L03.311 Cellulitis of abdominal wall; E03.9 Hypothyroidism, unspecified; K92.1 Melena; Z20.822 Contact with and (suspected) exposure to COVID-19; Z79.890 Hormone replacement therapy
CPT/HCPCS: 36415; 74176; 80053; 81003; 81025; 83605; 85025; 87040; 87635; 96361; 96365; 99284; 99285; J2543

== ENCOUNTER 2022-09-15 09:58 | Outpatient (REF) | payer OTHER, SELFPAY ==
--- NOTE | ~2022-09-15 | US_ITS ---
EXAMINATION: US ABDOMEN COMPLETE CLINICAL INFORMATION: Unspecified abdominal pain. COMPARISON: CT abdomen and pelvis 03/30/2022. TECHNIQUE: Real-time imaging of the abdominal viscera. FINDINGS: PANCREAS: Normal. ABDOMINAL AORTA: The proximal, mid, and distal segments are normal in caliber. INFERIOR VENA CAVA: Visualized portions are normal. LIVER: The liver is normal in size. The liver contour is normal. There is diffuse increased liver parenchymal echogenicity. No focal hepatic lesion. There is no intrahepatic biliary duct dilatation seen. GALLBLADDER: Normal. The gallbladder is physiologically distended without evidence of stones, sludge, polyps, wall thickening or pericholecystic fluid. COMMON BILE DUCT: Normal in caliber measuring 0.5 cm in diameter. RIGHT KIDNEY: Normal. No hydronephrosis. No renal calculi or focal parenchymal lesions. The kidney measures 11.0 cm in maximum dimension. LEFT KIDNEY: Normal. No hydronephrosis. No renal calculi or focal parenchymal lesions. The kidney measures 12.0 cm in maximum dimension. SPLEEN: Normal. The spleen measures 9.6 cm in maximum dimension. FREE FLUID: None. US/US abdomen complete IMPRESSION: 1. There is generalized increase in hepatic echotexture, consistent with fatty infiltration or hepatocellular disease. Please correlate clinically. No focal hepatic mass or intrahepatic biliary dilatation is seen. 2. Otherwise, unremarkable examination.
== END 2022-09-15 09:59 | disposition home or self-care (01) ==
LOC: HO.US 09:58
PROVIDERS: PCP Internal Medicine; Visit Provider Internal Medicine
DX: R10.9 Unspecified abdominal pain (principal)
CPT/HCPCS: 76700

== ENCOUNTER → 2022-09-27 14:22 | Outpatient (BNVA) | payer OTHER, SELFPAY | PROVIDERS: PCP Internal Medicine; Visit Provider Physician Assistant Surgical | DX: E66.9 Obesity, unspecified (principal); Z90.3 Acquired absence of stomach [part of]; Z68.33 Body mass index [BMI] 33.0-33.9, adult | CPT/HCPCS: 99212 ==

== ENCOUNTER 2022-10-03 11:06 | Emergency (ER) | payer OTHER, SELFPAY ==
[2022-10-03 12:05] VITALS: BP 108/72; PULSE 92; RESP 16; TEMP 36.1; O2SAT 98; BMI 31.4
--- NOTE | 2022-10-03 12:10 | ECG_ITS ---
Test Reason : upper abdominal pain Blood Pressure : / mmHG Vent. Rate : 084 BPM Atrial Rate : 084 BPM P-R Int : 148 ms QRS Dur : 080 ms QT Int : 360 ms P-R-T Axes : -12 006 -17 degrees QTc Int : 425 ms Normal sinus rhythm Nonspecific T waves in inferior leads. Borderline ECG When compared with ECG of 20-FEB-2022 06:41, No significant changes seen Referred By: Mio Landeros Electronically Signed By:Dallin Oscar
--- NOTE | 2022-10-03 12:12 | ED.GENADULT ---
HPI - General Adult General Chief complaint: Abdominal Pain <ANNE Martinez Last Filed: 10/09/22 11:24> Stated complaint: Upper abd pain/headache <ANNE Martinez Last Filed: 10/09/22 11:24> Time Seen by Provider: 10/03/22 14:25 <ANNE Martinez Last Filed: 10/09/22 11:24> Source: patient <ANNE Mitchell Last Filed: 10/03/22 15:06> Mode of arrival: ambulatory <ANNE Mitchell Last Filed: 10/03/22 15:06> Limitations: no limitations <ANNE Mitchell Last Filed: 10/03/22 15:06> History of Present Illness HPI narrative: 46-year-old female presents to the ER for evaluation of epigastric abdominal pain, nausea, headaches and dizziness that started yesterday. She also reports several episodes of nonbloody diarrhea. She feels like she has a virus. She reports the epigastric pain is worse when she eats. It does not radiate. It comes and goes. No current pain. She denies any vomiting but reports nausea. No urinary symptoms or lower abdominal pain. No one else at home is sick. No URI symptoms or fevers. <ANNE Mitchell Last Filed: 10/03/22 15:06> MD complaint: Epigastric pain and diarrhea <ANNE Mitchell Last Filed: 10/03/22 15:06> Onset (ago): day(s) (1) <ANNE Mitchell Last Filed: 10/03/22 15:06> Location: abdomen <ANNE Mitchell Last Filed: 10/03/22 15:06> Radiation: non-radiation <ANNE Mitchell Last Filed: 10/03/22 15:06> Severity: moderate <ANNE Mitchell Last Filed: 10/03/22 15:06> Severity scale (1-10): 4 <ANNE Mitchell Last Filed: 10/03/22 15:06> Quality: aching and other (Burning) <ANNE Mitchell Last Filed: 10/03/22 15:06> Pain Consistency: intermittent <ANNE Mitchell Last Filed: 10/03/22 15:06> Relieving factors: none <ANNE Mitchell Last Filed: 10/03/22 15:06> Exacerbating factors: eating <ANNE Mitchell Last Filed: 10/03/22 15:06> Associated symptoms: headaches, loss of appetite, malaise and weakness <ANNE Mitchell Last Filed: 10/03/22 15:06> Treatments prior to arrival: none <ANNE Mitchell Last Filed: 10/03/22 15:06> Related Data Home medications: Previous Rx's Medication Instructions Recorded ibuprofen 600 mg tablet 600 mg PO Q6H PRN pain #20 tabs 08/07/22 levothyroxine 75 mcg tablet 75 mcg PO DAILY #90 tabs 08/18/22 ondansetron 4 mg disintegrating 4 mg PO Q8H PRN nausea and 10/03/22 tablet vomiting #10 tabs pantoprazole 40 mg tablet,delayed 40 mg PO DAILY #14 tabs 10/03/22 release (Protonix) <ANNE Martinez Last Filed: 10/09/22 11:24> Allergies/adverse reactions: Allergies Allergy/AdvReac Type Severity Reaction Status Date / Time No Known Allergies Allergy Verified 08/07/22 12:23 [No Known Allergies*] <ANNE Martinez Last Filed: 10/09/22 11:24> Review of Systems Review of Systems: Yes all other systems are reviewed and are negative <ANNE Mitchell Last Filed: 10/03/22 15:06> [facility] Past Medical History Medical History: Medical History Class 1 obesity with body mass index (BMI) of 31.0 to 31.9 in adult Hypothyroidism Intestinal malabsorption following gastrectomy Muscle spasm Overweight Panniculitis Physical exam Pre-op evaluation Trigger finger, left middle finger URI (upper respiratory infection) Vitamin A deficiency Vitamin D deficiency <ANNE Martinez Last Filed: 10/09/22 11:24> Surgical History: Surgical History History of carpal tunnel release History of total abdominal hysterectomy and bilateral salpingo-oophorectomy S/P laparoscopic sleeve gastrectomy <ANNE Martinez - Last Filed: 10/09/22 11:24> Family History Family History: Family History Father No problems noted. Mother Hypertension Paternal Aunt Breast cancer Paternal Grandfather Hypertension Diabetes CVD (cardiovascular disease) Stroke <ANNE Martinez - Last Filed: 10/09/22 11:24> Social History Social History: Social History Household Members: Children Housing: House Do you presently have visiting nurse or other home services: No Alcohol intake: never Patient Tobacco Use Status: Never used Tobacco e-Cigarette/Vaping Use: Never Used Second Hand Smoke Exposure: No Advance Directives: Yes Advance Directives on File: Yes Advance Directives Date on File: 04/04/22 service: No Current occupational status: unemployed Current occupational exposures/hazards: No Cognitive needs: No Hearing needs: No Vision needs: Yes <ANNE Martinez - Last Filed: 10/09/22 11:24> Physical Exam ED Vital Signs: Vital Signs - 24 hr 10/03/22 12:05 Temperature 97.0 F Pulse Rate 92 Respiratory Rate 16 Blood Pressure 108/72 Pulse Oximetry 98 Oxygen Delivery Method Room Air BMI result Body Mass Index 31.4 <ANNE Martinez - Last Filed: 10/09/22 11:24> Vital Signs - 24 hr 10/03/22 12:05 Temperature 97.0 F Pulse Rate 92 Respiratory Rate 16 Blood Pressure 108/72 Pulse Oximetry 98 Oxygen Delivery Method Room Air BMI result Body Mass Index 31.4 <ANNE Mitchell - Last Filed: 10/03/22 15:06> Appearance: Alert. Oriented X3. No acute distress. Eyes: Pupils equal, round and reactive to light. ENT: Pharynx normal. Neck: Normal inspection. Neck supple. CVS: Normal heart rate and rhythm. Pulses normal. Respiratory: No respiratory distress. Breath sounds normal. Abdomen: Soft with mild epigastric tenderness, no rebound or guarding. Normal active +BS x4 Skin: Skin warm and dry. Normal skin color. Normal skin turgor. No rashes. Extremities: No lower extremity edema. Neuro: Oriented X 3. No motor deficit. No sensory deficit. <ANNE Mitchell - Last Filed: 10/03/22 15:06> Course Course Course Narrative: RME: 46 yold female presens to the ED for diarrhea, upper abdominal pain, headache, and nausea. patient states no vomitting. Physical exam positive for epigastric tenderness on palpation. due to over 40 will do EkG and troponin, and basic labs. SARS and UA ordered <ANNE Martinez - Last Filed: 10/09/22 11:24> Reevaluation(s) Reevaluation #1: Labs unremarkable. No current abdominal pain. No diarrhea since earlier this morning. No vomiting. Clinical presentation most likely due to gastroenteritis, possible gastritis. Will provide antiemetics and antacid medication. She will modify her diet, stay hydrated and follow up with her PCP. Stable for discharge home with symptomatic management. Patient agrees with plan. Work note provided per request. <ANNE Mitchell - Last Filed: 10/03/22 15:06> Medical Decision Making Differential Diagnosis Differential Diagnoses: The differential diagnosis associated with the presentation includes <ANNE Mitchell - Last Filed: 10/03/22 15:06> Gastritis, gastroenteritis, GERD, pancreatitis, cholecystitis, dehydration, UTI, diverticulitis, colitis, appendicitis <ANNE Mitchell - Last Filed: 10/03/22 15:06> Lab Data MDM Lab Attestation statement: I reviewed the patient's lab results. <ANNE Mitchell Last Filed: 10/03/22 15:06> No major metabolic derangement, no evidence of dehydration, no leukocytosis <ANNE Mitchell Last Filed: 10/03/22 15:06> Result Diagrams: 10/03/22 12:22 10/03/22 12:23 <ANNE Martinez - Last Filed: 10/09/22 11:24> Labs: Lab Results 10/03/22 10/03/22 10/03/22 Range/Units 12:22 12:22 12:23 WBC 6.0 (4.8-10.8) X10*3/uL RBC 4.74 D (4.20-5.50) X10*6/uL Hgb 13.8 D (12.0-16.0) g/dl Hct 43.3 D (37.0-47.0) % MCV 91.4 (80.0-98.0) fL MCH 29.1 (27.0-33.0) pg MCHC 31.9 (31.0-35.0) g/dl RDW 13.5 (11.0-16.0) % Plt Count 341 (160-400) X10*3/uL MPV 9.8 (9.4-12.3) fL Immature Gran % (Auto) 0.3 (0.0-0.4) % Neut % (Auto) 63.7 (45-73) % Lymph % (Auto) 23.6 (20-40) % Powell % (Auto) 10.2 (2-11) % Eos % (Auto) 1.7 (0-4) % Baso % (Auto) 0.5 (0-2) % Lymph # (Auto) 1.4 (1.2-4.9) X10*3/uL Powell # (Auto) 0.6 (0.1-1.2) X10*3/uL Eos # (Auto) 0.1 (0.0-0.4) X10*3/uL Baso # (Auto) 0.0 (0.0-0.2) X10*3/uL Abs Immat Gran (auto) 0.02 (0.00-0.03) X10*3/uL Absolute Neuts (auto) 3.8 (2.0-8.3) x10*3/uL Absolute Nucleated RBC 0.000 (0.0-0.012) X10*3/uL Nucleated RBC % (auto) 0.0 (0.0-0.2) /100WBC Sodium 139 (135-145) mmol/L Potassium 3.5 (3.3-5.1) mmol/L Chloride 108 (96-108) mmol/L Carbon Dioxide 25 (22-29) mmol/L Anion Gap 10 L (12-20) BUN 13 (9-16) mg/dL Creatinine 0.71 (0.5-1.4) mg/dL Estim Creat Clear Calc 109.7 Estimated GFR > 60 Random Glucose 112 (60-115) mg/dL Calcium 8.9 (8.4-10.2) mg/dL Total Bilirubin 0.3 (0.0-1.0) mg/dL AST 20 (5-31) U/L ALT 22 (0-31) U/L Alkaline Phosphatase 83 (39-117) U/L Troponin I High Sens < 3.5 (<3.5-17.0) ng/L Total Protein 6.6 (6.5-8.0) g/dL Albumin 4.0 (3.5-5.0) g/dL Lipase 25 (8-78) U/L Influenza Type A (PCR) (Negative) Influenza Type B (PCR) (Negative) RSV RNA Qual (PCR) (Negative) SARS-CoV-2 RNA (RT-PCR) (Negative) 10/03/22 Range/Units 12:23 WBC (4.8-10.8) X10*3/uL RBC (4.20-5.50) X10*6/uL Hgb (12.0-16.0) g/dl Hct (37.0-47.0) % MCV (80.0-98.0) fL MCH (27.0-33.0) pg MCHC (31.0-35.0) g/dl RDW (11.0-16.0) % Plt Count (160-400) X10*3/uL MPV (9.4-12.3) fL Immature Gran % (Auto) (0.0-0.4) % Neut % (Auto) (45-73) % Lymph % (Auto) (20-40) % Powell % (Auto) (2-11) % Eos % (Auto) (0-4) % Baso % (Auto) (0-2) % Lymph # (Auto) (1.2-4.9) X10*3/uL Powell # (Auto) (0.1-1.2) X10*3/uL Eos # (Auto) (0.0-0.4) X10*3/uL Baso # (Auto) (0.0-0.2) X10*3/uL Abs Immat Gran (auto) (0.00-0.03) X10*3/uL Absolute Neuts (auto) (2.0-8.3) x10*3/uL Absolute Nucleated RBC (0.0-0.012) X10*3/uL Nucleated RBC % (auto) (0.0-0.2) /100WBC Sodium (135-145) mmol/L Potassium (3.3-5.1) mmol/L Chloride (96-108) mmol/L Carbon Dioxide (22-29) mmol/L Anion Gap (12-20) BUN (9-16) mg/dL Creatinine (0.5-1.4) mg/dL Estim Creat Clear Calc Estimated GFR Random Glucose (60-115) mg/dL Calcium (8.4-10.2) mg/dL Total Bilirubin (0.0-1.0) mg/dL AST (5-31) U/L ALT (0-31) U/L Alkaline Phosphatase (39-117) U/L Troponin I High Sens (<3.5-17.0) ng/L Total Protein (6.5-8.0) g/dL Albumin (3.5-5.0) g/dL Lipase (8-78) U/L Influenza Type A (PCR) NEGATIVE (Negative) Influenza Type B (PCR) NEGATIVE (Negative) RSV RNA Qual (PCR) NEGATIVE (Negative) SARS-CoV-2 RNA (RT-PCR) NEGATIVE (Negative) <ANNE Martinez - Last Filed: 10/09/22 11:24> Lab Results 10/03/22 10/03/22 10/03/22 Range/Units 12:22 12:22 12:23 WBC 6.0 (4.8-10.8) X10*3/uL RBC 4.74 D (4.20-5.50) X10*6/uL Hgb 13.8 D (12.0-16.0) g/dl Hct 43.3 D (37.0-47.0) % MCV 91.4 (80.0-98.0) fL MCH 29.1 (27.0-33.0) pg MCHC 31.9 (31.0-35.0) g/dl RDW 13.5 (11.0-16.0) % Plt Count 341 (160-400) X10*3/uL MPV 9.8 (9.4-12.3) fL Immature Gran % (Auto) 0.3 (0.0-0.4) % Neut % (Auto) 63.7 (45-73) % Lymph % (Auto) 23.6 (20-40) % Powell % (Auto) 10.2 (2-11) % Eos % (Auto) 1.7 (0-4) % Baso % (Auto) 0.5 (0-2) % Lymph # (Auto) 1.4 (1.2-4.9) X10*3/uL Powell # (Auto) 0.6 (0.1-1.2) X10*3/uL Eos # (Auto) 0.1 (0.0-0.4) X10*3/uL Baso # (Auto) 0.0 (0.0-0.2) X10*3/uL Abs Immat Gran (auto) 0.02 (0.00-0.03) X10*3/uL Absolute Neuts (auto) 3.8 (2.0-8.3) x10*3/uL Absolute Nucleated RBC 0.000 (0.0-0.012) X10*3/uL Nucleated RBC % (auto) 0.0 (0.0-0.2) /100WBC Sodium 139 (135-145) mmol/L Potassium 3.5 (3.3-5.1) mmol/L Chloride 108 (96-108) mmol/L Carbon Dioxide 25 (22-29) mmol/L Anion Gap 10 L (12-20) BUN 13 (9-16) mg/dL Creatinine 0.71 (0.5-1.4) mg/dL Estim Creat Clear Calc 109.7 Estimated GFR > 60 Random Glucose 112 (60-115) mg/dL Calcium 8.9 (8.4-10.2) mg/dL Total Bilirubin 0.3 (0.0-1.0) mg/dL AST 20 (5-31) U/L ALT 22 (0-31) U/L Alkaline Phosphatase 83 (39-117) U/L Troponin I High Sens < 3.5 (<3.5-17.0) ng/L Total Protein 6.6 (6.5-8.0) g/dL Albumin 4.0 (3.5-5.0) g/dL Lipase 25 (8-78) U/L Influenza Type A (PCR) (Negative) Influenza Type B (PCR) (Negative) RSV RNA Qual (PCR) (Negative) SARS-CoV-2 RNA (RT-PCR) (Negative) 10/03/22 Range/Units 12:23 WBC (4.8-10.8) X10*3/uL RBC (4.20-5.50) X10*6/uL Hgb (12.0-16.0) g/dl Hct (37.0-47.0) % MCV (80.0-98.0) fL MCH (27.0-33.0) pg MCHC (31.0-35.0) g/dl RDW (11.0-16.0) % Plt Count (160-400) X10*3/uL MPV (9.4-12.3) fL Immature Gran % (Auto) (0.0-0.4) % Neut % (Auto) (45-73) % Lymph % (Auto) (20-40) % Powell % (Auto) (2-11) % Eos % (Auto) (0-4) % Baso % (Auto) (0-2) % Lymph # (Auto) (1.2-4.9) X10*3/uL Powell # (Auto) (0.1-1.2) X10*3/uL Eos # (Auto) (0.0-0.4) X10*3/uL Baso # (Auto) (0.0-0.2) X10*3/uL Abs Immat Gran (auto) (0.00-0.03) X10*3/uL Absolute Neuts (auto) (2.0-8.3) x10*3/uL Absolute Nucleated RBC (0.0-0.012) X10*3/uL Nucleated RBC % (auto) (0.0-0.2) /100WBC Sodium (135-145) mmol/L Potassium (3.3-5.1) mmol/L Chloride (96-108) mmol/L Carbon Dioxide (22-29) mmol/L Anion Gap (12-20) BUN (9-16) mg/dL Creatinine (0.5-1.4) mg/dL Estim Creat Clear Calc Estimated GFR Random Glucose (60-115) mg/dL Calcium (8.4-10.2) mg/dL Total Bilirubin (0.0-1.0) mg/dL AST (5-31) U/L ALT (0-31) U/L Alkaline Phosphatase (39-117) U/L Troponin I High Sens (<3.5-17.0) ng/L Total Protein (6.5-8.0) g/dL Albumin (3.5-5.0) g/dL Lipase (8-78) U/L Influenza Type A (PCR) NEGATIVE (Negative) Influenza Type B (PCR) NEGATIVE (Negative) RSV RNA Qual (PCR) NEGATIVE (Negative) SARS-CoV-2 RNA (RT-PCR) NEGATIVE (Negative) <ANNE Mitchell - Last Filed: 10/03/22 15:06> Independent Interpretation I performed an independent interpretation of an: EKG <ANNE Mitchell - Last Filed: 10/03/22 15:06> Interpretation: Normal sinus rhythm, ventricular rate 84 beats per minute, normal CT interval, normal QTC, no ST segment elevations or depressions <ANNE Mitchell Last Filed: 10/03/22 15:06> External Record Review External record reviewed: Outpatient record, Prior outpatient labs and Prior outpatient radiology <ANNE Mitchell Last Filed: 10/03/22 15:06> Critical Care Time Critical Care Time Critical Care Time: No <ANNE Mitchell Last Filed: 10/03/22 15:06> Discharge Plan Discharge Clinical Impression: Gastroenteritis <ANNE Martinez Last Filed: 10/09/22 11:24> Patient Disposition: Home, Self-Care <ANNE Martinez Last Filed: 10/09/22 11:24> Instructions: Gastroenteritis (ED) <ANNE Martinez Last Filed: 10/09/22 11:24> Additional Instructions: You lab workup today was unremarkable. Your urine test was negative for infection and . You most likely have a viral GI bug also known as gastroenteritis. Treatment is supportive care, symptoms usually resolve on their own in 48-72 hours. Recommend rest and plenty of oral hydration. Stick to a bland diet like soup and toast while you are not feeling well. Take the prescribed medication as needed for nausea. Recommend over the counter Pepto Bismol or Imodium for upset stomach and diarrhea. Follow up with your doctor as needed. If you develop new or worsening symptoms call 911 or come back to the ER for further evaluation. <ANNE Martinez - Last Filed: 10/09/22 11:24> Prescriptions: New ondansetron 4 mg tablet,disintegrating 4 mg PO Q8H PRN (Reason: nausea and vomiting) Qty: 10 0RF pantoprazole [Protonix] 40 mg tablet,delayed release (DR/EC) 40 mg PO DAILY Qty: 14 0RF No Action levothyroxine 75 mcg tablet 75 mcg PO DAILY Qty: 90 1RF ibuprofen 600 mg tablet 600 mg PO Q6H PRN (Reason: pain) Qty: 20 0RF <ANNE Martinez - Last Filed: 10/09/22 11:24> Referrals: Danay Benítez MD [Primary Care Provider] - <ANNE Martinez - Last Filed: 10/09/22 11:24> Stand Alone Forms: Work/School Release <ANNE Martinez - Last Filed: 10/09/22 11:24> Interventions: ED Discharge Assessment Last Done: 10/03/22 15:11 <ANNE Martinez - Last Filed: 10/09/22 11:24> Discharge Date/Time: 10/03/22 15:12 <ANNE Martinez - Last Filed: 10/09/22 11:24> Print Language: Singaporean <ANNE Martinez - Last Filed: 10/09/22 11:24>
[2022-10-03 12:27] LABS: MANUAL DIFF FLAG NO
[2022-10-03 12:29] LABS: Basophils Percent Auto 0.5 % (0-2); Eosinophils Absolute Auto 0.1 X10*3/uL (0.0-0.4); Eosinophils Percent Auto 1.7 % (0-4); Hematocrit 43.3 % (37.0-47.0); Hemoglobin 13.8 g/dl (12.0-16.0); Imm Gran Abs Auto 0.02 X10*3/uL (0.00-0.03); Imm Gran Pct Auto 0.3 % (0.0-0.4); Lymphocytes Absolute Auto 1.4 X10*3/uL (1.2-4.9); Lymphocytes Percent Auto 23.6 % (20-40); Mean Corpuscular HGB Conc 31.9 g/dl (31.0-35.0); Mean Corpuscular Hemoglobin 29.1 pg (27.0-33.0); Mean Corpuscular Volume 91.4 fL (80.0-98.0); Mean Platelet Volume 9.8 fL (9.4-12.3); Monocytes Absolute Auto 0.6 X10*3/uL (0.1-1.2); Monocytes Percent Auto 10.2 % (2-11); Neutrophils Absolute Auto 3.8 x10*3/uL (2.0-8.3); Neutrophils Percent Auto 63.7 % (45-73); Platelet Count 341 X10*3/uL (160-400); Red Blood Count 4.74 X10*6/uL (4.20-5.50); Red Cell Distribution Width 13.5 % (11.0-16.0)
[2022-10-03 12:44] LABS: Alanine Aminotransferase 22 U/L (0-31); Alkaline Phosphatase 83 U/L (39-117); Anion Gap 10 (12-20); Aspartate Amino Transferase 20 U/L (5-31); Bilirubin Total 0.3 mg/dL (0.0-1.0); Blood Urea Nitrogen 13 mg/dL (9-16); Calcium 8.9 mg/dL (8.4-10.2); Carbon Dioxide 25 mmol/L (22-29); Chloride 108 mmol/L (96-108); Creatinine Clr Calc Pharmacy 109.7; Estimated Glomerular Filt Rate > 60; Glucose Random 112 mg/dL (60-115); Lipase 25 U/L (8-78); Potassium 3.5 mmol/L (3.3-5.1); Sodium 139 mmol/L (135-145); Total Protein 6.6 g/dL (6.5-8.0)
[2022-10-03 12:58] LABS: Troponin-I High Sensitivity < 3.5 ng/L (<3.5-17.0)
[2022-10-03 13:08] LABS: Influenza A PCR NEGATIVE (Negative); Influenza B PCR NEGATIVE (Negative); Resp Syncy Virus RNA Qual PCR NEGATIVE (Negative); SARS COV2 PCR INHOUSE NEGATIVE (Negative)
== END 2022-10-03 15:12 | disposition home or self-care (01) ==
PROVIDERS: Physician Assistant; Emergency Provider Emergency Medicine; PCP Internal Medicine
DX: K52.9 Noninfective gastroenteritis and colitis, unspecified (principal); Z20.822 Contact with and (suspected) exposure to COVID-19; Z20.828 Contact with and (suspected) exposure to other viral communicable diseases; Z90.3 Acquired absence of stomach [part of]
CPT/HCPCS: 0241U; 80053; 83690; 84484; 85025; 93005; 99283

== ENCOUNTER 2022-10-28 10:24 | Outpatient (REF) | payer OTHER, SELFPAY ==
--- NOTE | ~2022-10-28 | MM_ITS ---
EXAMINATION: MM SCREENING DIGITAL BREAST TOMOSYNTHESIS, BILATERAL CLINICAL INFORMATION: Screening. Asymptomatic. The lifetime risk of breast cancer based on the Tyrer-Cuzick Model is 9%. COMPARISON: Mammography: 10/22/2021, 10/02/2020 (baseline) TECHNIQUE: Digital breast tomosynthesis is performed in both the craniocaudal and mediolateral oblique views along with computer-aided detection (CAD). Synthesized 2D images are generated from the tomosynthesis. FINDINGS: There are scattered areas of fibroglandular density (ACR BI-RADS breast composition Category b). There are no significant masses, abnormal calcifications, or other abnormalities. Parenchymal pattern is similar to prior studies. There is no developing density or architectural abnormality. The axilla and skin contours are unremarkable. No significant changes. MM/MM tomosynthesis screening BI IMPRESSION: No mammographic evidence of malignancy. ASSESSMENT: BI-RADS 1: Negative RECOMMENDATION: Routine annual mammography screening. This patient's information was entered into a reminder system with a target due date for their next mammogram.
== END 2022-10-28 10:25 | disposition home or self-care (01) ==
LOC: HO.MAMMO 10:24
PROVIDERS: PCP Internal Medicine; Visit Provider Internal Medicine
DX: Z12.31 Encounter for screening mammogram for malignant neoplasm of breast (principal)
CPT/HCPCS: 77063; 77067

== ENCOUNTER 2022-11-20 06:36 | Outpatient (REF) | payer OTHER, SELFPAY ==
[2022-11-20 08:13] LABS: Alanine Aminotransferase 25 U/L (0-31); Albumin Level 4.1 g/dL (3.5-5.0); Alkaline Phosphatase 76 U/L (39-117); Anion Gap 14 (12-20); Aspartate Amino Transferase 22 U/L (5-31); Bilirubin Total 0.6 mg/dL (0.0-1.0); Blood Urea Nitrogen 15 mg/dL (9-16); Calcium 9.6 mg/dL (8.4-10.2); Carbon Dioxide 28 mmol/L (22-29); Chloride 104 mmol/L (96-108); Cholesterol 211 mg/dL; Estimated Glomerular Filt Rate > 60; Glucose Fasting 91 mg/dL (60-99); HDL Cholesterol 53 mg/dL; LDL Cholesterol Calculated 124 mg/dl; Potassium 4.5 mmol/L (3.3-5.1); Sodium 141 mmol/L (135-145); Total Protein 6.7 g/dL (6.5-8.0); Triglycerides 174 mg/dL
[2022-11-20 08:34] LABS: Thyroid Stimulating Hormone 2.36 uIU/mL (0.32-4.0); Vitamin D 25-OH Total 32.1 ng/mL (>30)
[2022-11-24 03:34] LABS: Vitamin A 42 mcg/dL (38-98)
== END 2022-11-20 06:37 | disposition home or self-care (01) ==
LOC: HO.LAB 06:36
PROVIDERS: PCP Internal Medicine; Visit Provider Internal Medicine
DX: E66.9 Obesity, unspecified (principal); Z68.30 Body mass index [BMI] 30.0-30.9, adult; E03.9 Hypothyroidism, unspecified; E55.9 Vitamin D deficiency, unspecified; E78.5 Hyperlipidemia, unspecified; E50.9 Vitamin A deficiency, unspecified
CPT/HCPCS: 36415; 80053; 80061; 82306; 84443; 84590

== ENCOUNTER 2022-12-14 15:00 | Outpatient (RCR) | payer OTHER, SELFPAY ==
--- NOTE | 2022-12-14 13:58 | MHC.PT.EP ---
[facility] [place] Office [place] Office [place] Office [address] Rosalba Johnston [address] [phone] F: [phone] F: [phone] F: [phone] F: [phone] Physical Therapy Plan of Care Date of Evaluation: Date of Surgery: N/A Diagnosis: Sciatica, right side Assessment: Pt is a pleasant 47yo F who presents to PT with R sided low back pain intermittently radiating into R LE. She presents to PT with current impairments in pain, decreased lumbar ROM, anterior pelvic tilt, decreased core stabilization, decreased hip/glute strength, impaired gait and impaired body mechanics. She is limited functionally by prolonged sitting, sleeping, lifting, prolonged standing, and prolonged walking. She is a good candidate for skilled PT in order to address current impairments to facilitate return to PLOF. She is recommended to be seen 2x/week for 4 weeks and will be reassessed at that time. Frequency and Duration: The patient will be seen 2x/week for 4 weeks Short Term Goals: Pt will be I with HEP to promote self management of symptoms Pt will demonstrate improvements in postural awareness throughout the day Manager Primary Goals: Pt will achieve full ROM all planes of lumbar spine to assist with functional tasks Pt will demonstrate ability to squat and pick object off from floor with proper mechanics and minimal to no discomfort Pt will demonstrate improvements in function as evidenced by Modified Oswestry Low Back Pain Disability Questionnaire Treatment Plan: Modalities to reduce pain, spasms and effusion. Manual therapy to restore motion and function. Therapeutic exercise to improve strength and flexibility. Neuromuscular re-education for posture and balance. Therapeutic activities to return to functional activities of daily living. Electronically signed by: Ila Woodward, PT, DPT Please sign and return to therapist. Thank you for your referral.
--- NOTE | 2023-01-23 15:34 | MHC.PT.DC ---
[facility] [place] Office [place] Office [place] Office [address] Rosalba Johnston [address] [phone] F: [phone] F: [phone] F: [phone] F: [phone] Physical Therapy Discharge Report Diagnosis: Sciatica, right side Date of Surgery: N/A Date of Evaluation: 12/12/22 Date of Discharge: 01/23/23 Treatments to Date: 2 Cancellations to Date: 1 No Shows to Date: 4 Discharge Status: Visit Non-compliance Discharge Summary: Pt was seen for PT from 12/12/22-12/14/22. She attended initial PT evaluation and 1 treatment session. Pt had 1 cancellation and 4 no-show appointments since last attended session. Pt is being D/C from skilled PT per [facility] attendance policy and visit non-compliance. Pt current level of function unknown at this time. Electronically signed by: Ila Woodward, PT, DPT Please sign and return to therapist. Thank you for your referral.
== END 2023-01-23 15:35 | disposition home or self-care (01) ==
LOC: HO.PT 15:00
PROVIDERS: PCP Internal Medicine; Visit Provider Internal Medicine
DX: M54.31 Sciatica, right side (principal)
CPT/HCPCS: 97110; 97140; 97162

== ENCOUNTER 2023-09-10 10:42 | Emergency (ER) | payer OTHER, SELFPAY ==
[2023-09-10 10:56] VITALS: BP 121/80; BP 134/84; PULSE 87; PULSE 97; RESP 12; TEMP 36.5; O2SAT 95; O2SAT 96; BMI 31.5
--- NOTE | 2023-09-10 11:24 | ED.GENADULT ---
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 Denies symptoms prior to fall including lightheadedness/dizziness. Denies LOC her taking anticoagulation. Denies nausea/vomiting, chest pain, abdominal pain, SOB, weakness, incontinence Onset (ago): hour(s) Related Data Previous Rx's Medication Instructions Recorded ibuprofen 600 mg tablet 600 mg PO Q6H PRN pain #20 tabs 08/07/22 gabapentin 100 mg capsule 100 mg PO TID 30 days #90 caps 05/27/23 bisacodyl 5 mg tablet,delayed 20 mg (4 x 5 mg) PO ONCE 1 day #4 06/15/23 release (Dulcolax (bisacodyl)) tabs peg 3350-electrolytes 236 240 ml PO Q10M #4,000 mL 06/15/23 gram-22.74 gram-6.74 gram-5.86 gram solution levothyroxine 75 mcg tablet 75 mcg PO DAILY #90 tabs 08/12/23 bupropion HCl 150 mg 24 hr tablet, 150 mg PO QAM 90 days #90 tabs 08/24/23 extended release acetaminophen 500 mg tablet 500 mg PO Q6H PRN fever or pain 09/10/23 (Tylenol Extra Strength) #14 tabs cyclobenzaprine 5 mg tablet 5 mg PO Q8H PRN pain (scale score 09/10/23 7-10) 5 days #14 tabs lidocaine 5 % topical patch 1 patch topical DAILY PRN pain #30 09/10/23 (Lidoderm) ea naproxen 500 mg tablet 500 mg PO BID PRN pain 10 days #20 09/10/23 tabs Allergies Allergy/AdvReac Type Severity Reaction Status Date / Time No Known Allergies Allergy Verified 11/22/22 17:06 [No Known Allergies*] Review of Systems Review of Systems: Constitutional: No Fever, No Chills ENT/Mouth: No Ear Pain, No Nasal Congestion, No sore throat, No Rhinorrhea, No Swallowing Difficulty Cardiovascular: No Chest Pain, No SOB Respiratory: No Cough, No Sputum Gastrointestinal: No Nausea, No Vomiting, No Abdominal pain Genitourinary: No Dysuria, No Urinary Frequency, No Hematuria, No Urinary Incontinence/retention Musculoskeletal: +joint pain, + Myalgias, No Joint Swelling Skin: No Skin Lesions, No rash Neuro: No Weakness, No Numbness, No Paresthesias, + headache, no LOC Yes all other systems are reviewed and are negative Constitutional: Constitutional: Reports as per HPI Neurologic: Denies Abnormal speech present PMFSH Past Medical History Attestation statement: The following information was validated with the patient. Source: old records reviewed Onset Date is defined in the Problem List Problems that require an onset date and time if occurred within 24 hrs of arrival to the ED Aortic Dissection and Rupture; Neurologic impairment; Cardiopulmonary Arrest; Endotracheal Intubation; Insertion or Replacement of Mechanical Circulatory Assist Device Medical History Physical exam Pre-op evaluation Trigger finger, left middle finger URI (upper respiratory infection) Muscle spasm Class 1 obesity with body mass index (BMI) of 31.0 to 31.9 in adult Vitamin D deficiency Vitamin A deficiency Panniculitis Intestinal malabsorption following gastrectomy Overweight Hypothyroidism Surgical History S/P laparoscopic sleeve gastrectomy History of total abdominal hysterectomy and bilateral salpingo-oophorectomy History of carpal tunnel release Family History Family History Father No problems noted. Mother Hypertension Paternal Aunt Breast cancer Paternal Grandfather Hypertension Diabetes CVD (cardiovascular disease) Stroke Social History Social History Household Members: Children Housing: House Do you presently have visiting nurse or other home services: No Alcohol intake: current Alcohol intake frequency: holidays/special occasions only Alcohol type: wine and hard liquor Patient Tobacco Use Status: Never used Tobacco e-Cigarette/Vaping Use: Never Used Second Hand Smoke Exposure: No Advance Directives: Yes Advance Directives on File: Yes Advance Directives Date on File: 04/04/22 service: No Current occupational status: employed Current occupational exposures/hazards: No Cognitive needs: No Hearing needs: No Vision needs: Yes Physical Exam ED Vital Signs: Vital Signs - 24 hr 09/10/23 10:56 Temperature 97.7 F Pulse Rate 87 Respiratory Rate 12 Blood Pressure 121/80 Pulse Oximetry 95 Oxygen Delivery Method Room Air BMI result Body Mass Index 31.5 Const General: cooperative, healthy appearing and no acute distress Orientation/consciousness: patient oriented x3 Limitations: no limitations HENMT Head: Yes normal to inspection and Yes atraumatic Ears: hearing grossly normal bilaterally, external ears normal and mastoids normal General nose exam: Normal external nose present Face and sinus: Yes normal facial exam Mouth: Normal oral and palatal mucosa present, no audible dysphonia and no drooling Throat: Yes posterior oropharynx normal, Yes uvula midline and No peritonsillar mass Eyes General: appearance normal, both eyes and all related structures Pupils: Equal, round and reactive pupils present EOM: EOMs intact bilaterally Neck Other: C-collar in place Neck: Yes normal visual inspection and Yes no meningeal signs Chest Other: No seatbelt sign Chest palpation & inspection: normal inspection of the chest Resp Effort & Inspection: normal respiratory effort and no respiratory distress Cardio Rate: regular rate GI Inspection: Yes normal to inspection Palpation (GI): Soft to palpation, nontender, no guarding and not rigid General: Yes no CVA tenderness Back/Spine/Pelvis Other: No midline cervical/thoracic/lumbar spinous tenderness/step-off or deformity. + left-sided paraspinal thoracic and lumbar/MSK reproducible tenderness. No flail chest/ecchymosis or erythema Back: no CVA tenderness Skin Rashes: no rashes Wounds: no wounds Neuro Other: Strength intact throughout. No saddle anesthesia. Sensation intact to light touch. Neurovascular intact distally General: patient oriented x3, tone normal, moves all extremities, no meningeal signs, no focal motor deficits and CN's II-XI intact bilaterally Cranial nerves: Yes CN's II-XII intact bilaterally and Yes Equal, round and reactive pupils present Cognition (Neuro): normal cognition Speech: No Abnormal speech present Gait exam (Neuro): Normal gait present Motor exam (neuro): 5/5 motor strength present throughout Extrem Other: + mild tenderness to palpation to left hip. No deformity. Full range of motion intact. Neurovascular intact distally General: Yes normal to inspection Course Course Course Narrative: 1247--CT head/brain wo IV con/CT cervical spine wo IV con IMPRESSION: 1. No acute intracranial pathology. 2. No acute cervical spinal fractures or malalignment. 3. Paranasal sinus disease. XR thoracic spine 3V/XR lumbar spine 2-3V IMPRESSION: 1. No acute fracture or malalignment of the thoracic and lumbar spine. 2. Mild to moderate thoracic and lumbar spondylosis. XR hip LT w PEL1V IMPRESSION: 1. No fracture or malalignment. 2. 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 They verbalized understanding and feel safe for discharge at this time. Medications Administered Discontinued Medications Generic Name Dose Route Start Last Admin Trade Name Freq PRN Reason Stop Dose Admin Acetaminophen 650 mg 09/10/23 11:10 09/10/23 11:28 Acetaminophen 325 Mg Tablet PO 09/10/23 11:11 650 mg ONCE ONE Administration Cyclobenzaprine HCl 5 mg 09/10/23 11:10 09/10/23 11:28 Cyclobenzaprine Hcl 5 Mg Tablet PO 09/10/23 11:11 5 mg ONCE ONE Administration Medical Decision Making Medical Decision Making [facility] Narrative: 47-year-old female with past medical history of vitamin-D and A deficiency, hypothyroid, presenting to the ED by EMS complaining of headache, mid/low back and left hip pain s/p mechanical slip and fall on snow 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 On exam vital signs stable, NAD, nontoxic appearing, physical exam as noted above. No midline spinous tenderness throughout. No focal neuro deficits. Concern for concussion vs ICH vs fractures/contusions. Low suspicion for intrathoracic/intra-abdominal bleeding/hematoma, cauda equina/cord compression Plan: Head/C-spine CT, x-rays, pain control, re-evaluate Please refer to course for remaining clinical decision making, interpretation of labs/imaging results, and discussions with consultants and/or family members. Differential Diagnosis Differential Diagnoses: The differential diagnosis associated with the presentation includes As above Admission/Observation Consideration of admission/observation: Escalation of care including admission/observation considered Lab Data [facility] Lab Attestation statement: I reviewed the patient's lab results. Independent Interpretation I performed an independent interpretation of an: CT Scan Radiology Impression Discussion of test interpretation with radiology: I have reviewed the radiologist's reading. Independent Historian Clinical information obtained from an independent historian. History obtained from or confirmed by: EMS External Record Review External record reviewed: Inpatient record, Office record, Outpatient record, Prior outpatient labs, Prior outpatient radiology, Primary care record and Outside ED record Tests considered The following testing was considered but not selected: As above Prescription Management I considered prescription management with: Pain Medication Chronic Conditions Patient?s care impacted by: Other Discharge Plan Discharge Clinical Impression: Head injury, Musculoskeletal pain Patient Disposition: Home, Self-Care Instructions: Head Injury (ED), Musculoskeletal Pain (ED) Additional Instructions: You do have some osteoarthritis of her hips, otherwise your imaging is reassuring Your pain is likely musculoskeletal Flexeril is a muscle relaxer, take at night as it makes you drowsy, do not drive, drink alcohol, or operate machinery while taking it Naproxen as an anti-inflammatory / pain medication, take with food Lidoderm patches are numbing patches, apply to painful area In addition take Tylenol at home If symptoms persist or worsen, pain becomes unbearable, you developed urinary retention or incontinence, or weakness return to the ED Prescriptions: New acetaminophen [Tylenol Extra Strength] 500 mg tablet 500 mg PO Q6H PRN (Reason: fever or pain) Qty: 14 0RF lidocaine [Lidoderm] 5 % adhesive patch,medicated 1 patch topical DAILY MDD remove after 12 hours PRN (Reason: pain) Qty: 30 0RF Rx Instructions: leave on most painful area for up to 12 hrs naproxen 500 mg tablet 500 mg PO BID PRN (Reason: pain) 10 Days Qty: 20 0RF cyclobenzaprine 5 mg tablet 5 mg PO Q8H PRN (Reason: pain (scale score 7-10)) 5 Days Qty: 14 0RF No Action gabapentin 100 mg capsule 100 mg PO TID 30 Days Qty: 90 2RF bisacodyl [Dulcolax (bisacodyl)] 5 mg tablet,delayed release (DR/EC) 20 mg PO ONCE 1 Days Qty: 4 0RF Rx Instructions: take at noon the day before colonoscopy peg 3350-electrolytes 236-22.74-6.74 -5.86 gram recon soln 240 ml PO Q10M Qty: 4000 0RF Rx Instructions: Refer to prep instructions given/ mailed to you from GI OFFICE. until fecal effluent is clear levothyroxine 75 mcg tablet 75 mcg PO DAILY Qty: 90 1RF bupropion HCl 150 mg tablet extended release 24 hr 150 mg PO QAM 90 Days Qty: 90 0RF ibuprofen 600 mg tablet 600 mg PO Q6H PRN (Reason: pain) Qty: 20 0RF Referrals: Danay Benítez MD [Primary Care Provider] - 1 week Stand Alone Forms: Work/School Release Interventions: ED Discharge Assessment Last Done: 09/10/23 14:24 Discharge Date/Time: 09/10/23 14:25
== END 2023-09-10 14:25 | disposition home or self-care (01) ==
PROVIDERS: Emergency Provider Emergency Medicine; PCP Internal Medicine
DX: S09.90XA Unspecified injury of head, initial encounter (principal); M54.6 Pain in thoracic spine; M79.10 Myalgia, unspecified site; M54.2 Cervicalgia; M25.552 Pain in left hip; R51.9 Headache, unspecified; W00.0XXA Fall on same level due to ice and snow, initial encounter; Y93.9 Activity, unspecified; Y92.9 Unspecified place or not applicable; Y99.9 Unspecified external cause status
CPT/HCPCS: 70450; 72072; 72100; 72125; 73502; 99283; 99284

== ENCOUNTER 2023-09-12 06:16 | Emergency (ER) | payer OTHER, SELFPAY ==
[2023-09-12 06:18] VITALS: BP 133/81; PULSE 82; RESP 18; TEMP 36.6; O2SAT 100; BMI 31.5
[2023-09-12 08:34] LABS: Appearance Urine Clear; Color Urine Yellow; Glucose Urine UA Negative (Negative); Leukocyte Esterase Urine Negative (Negative); Nitrite Urine Negative (Negative); Urine Blood Negative (Negative); Urine Ketones Negative (Negative); Urine Protein Negative (Neg-Trace)
--- NOTE | 2023-09-12 08:35 | ED.FALL ---
HPI - Fall General Chief Complaint: Fall Stated Complaint: Back Pain from fall Time Seen by Provider: 09/12/23 07:59 Source: patient Mode of arrival: ambulatory Limitations: language barrier History of Present Illness HPI Narrative: HIstory obtained by an tennis court attendant, patient with more back pain. Patient had CT and xrays which were negative. Patient had CT of head and neck, xray of thoracic, lumbar spine pelvis and hips. She comes today because she has pain MD complaint: fall Onset (ago): day(s) Fall from: standing (slipped on ice getting out of her car) Loss of consciousness: none Related Data Previous Rx's Medication Instructions Recorded ibuprofen 600 mg tablet 600 mg PO Q6H PRN pain #20 tabs 08/07/22 gabapentin 100 mg capsule 100 mg PO TID 30 days #90 caps 05/27/23 bisacodyl 5 mg tablet,delayed 20 mg (4 x 5 mg) PO ONCE 1 day #4 06/15/23 release (Dulcolax (bisacodyl)) tabs peg 3350-electrolytes 236 240 ml PO Q10M #4,000 mL 06/15/23 gram-22.74 gram-6.74 gram-5.86 gram solution levothyroxine 75 mcg tablet 75 mcg PO DAILY #90 tabs 08/12/23 bupropion HCl 150 mg 24 hr tablet, 150 mg PO QAM 90 days #90 tabs 08/24/23 extended release acetaminophen 500 mg tablet 500 mg PO Q6H PRN fever or pain 09/10/23 (Tylenol Extra Strength) #14 tabs cyclobenzaprine 5 mg tablet 5 mg PO Q8H PRN pain (scale score 09/10/23 7-10) 5 days #14 tabs lidocaine 5 % topical patch 1 patch topical DAILY PRN pain #30 09/10/23 (Lidoderm) ea naproxen 500 mg tablet 500 mg PO BID PRN pain 10 days #20 09/10/23 tabs Allergies Allergy/AdvReac Type Severity Reaction Status Date / Time No Known Allergies Allergy Verified 09/12/23 06:21 [No Known Allergies*] Review of Systems Review of Systems: Yes all other systems are reviewed and are negative Neurologic: Denies Sensory deficit (Neuro) PMFSH Past Medical History Onset Date is defined in the Problem List Problems that require an onset date and time if occurred within 24 hrs of arrival to the ED Aortic Dissection and Rupture; Neurologic impairment; Cardiopulmonary Arrest; Endotracheal Intubation; Insertion or Replacement of Mechanical Circulatory Assist Device Medical History Physical exam Pre-op evaluation Trigger finger, left middle finger URI (upper respiratory infection) Muscle spasm Class 1 obesity with body mass index (BMI) of 31.0 to 31.9 in adult Vitamin D deficiency Vitamin A deficiency Panniculitis Intestinal malabsorption following gastrectomy Overweight Hypothyroidism Surgical History S/P laparoscopic sleeve gastrectomy History of total abdominal hysterectomy and bilateral salpingo-oophorectomy History of carpal tunnel release Family History Family History Father No problems noted. Mother Hypertension Paternal Aunt Breast cancer Paternal Grandfather Hypertension Diabetes CVD (cardiovascular disease) Stroke Social History Social History Household Members: Children Housing: House Do you presently have visiting nurse or other home services: No Alcohol intake: current Alcohol intake frequency: holidays/special occasions only Alcohol type: wine and hard liquor Patient Tobacco Use Status: Never used Tobacco e-Cigarette/Vaping Use: Never Used Second Hand Smoke Exposure: No Advance Directives: Yes Advance Directives on File: Yes Advance Directives Date on File: 04/04/22 service: No Current occupational status: employed Current occupational exposures/hazards: No Cognitive needs: No Hearing needs: No Vision needs: Yes Physical Exam Vital Signs: Vital Signs: Last Vital Signs Temp 97.8 F 09/12/23 06:18 Pulse 82 09/12/23 06:18 Resp 18 09/12/23 06:18 BP 133/81 09/12/23 06:18 Pulse Ox 100 09/12/23 06:18 O2 Del Method Room Air 09/12/23 06:18 BMI result Body Mass Index 31.5 Const: General: healthy appearing Nutritional Appearance: average body habitus Orientation/consciousness: oriented to person and patient oriented x3 Limitations: no limitations HEENT: Head: Yes normal to inspection Ears: external ears normal General nose exam: Normal external nose present Mouth: Normal oral and palatal mucosa present and oropharynx normal Throat: Yes posterior oropharynx normal Eyes: General: appearance normal, both eyes and all related structures Neck: Other: supple Neck: Yes normal visual inspection Chest: Chest palpation & inspection: normal inspection of the chest Resp: Auscultation: clear to auscultation bilaterally Cardio: Jugular venous distension: no JVD Rate: regular rate Rhythm: regular rhythm Heart sounds: S1 normal heart sound present and S2 normal heart sound present GI: Inspection: Yes normal to inspection Palpation (GI): Soft to palpation, nontender and No hepatosplenomegaly present Auscultation: normal bowel sounds Back/Spine/Pelvis: Other: diffuse back pain Skin: General skin exam: no rashes or lesions noted Neuro: General: oriented to person and patient oriented x3 Cranial nerves: Yes CN's II-XII intact bilaterally Motor exam (neuro): 5/5 motor strength present throughout Sensory Exam: No Sensory deficit (Neuro) Extrem: General: Yes normal to inspection Psych: Appearance: grossly normal Medical Decision Making Differential Diagnosis Differential Diagnoses: The differential diagnosis associated with the presentation includes (Muscle spasm, back pain) Lab Data Labs: Lab Results 09/12/23 Range/Units 08:10 Urine Color Yellow Urine Appearance Clear Urine pH 7.0 (5.0-9.0) Ur Specific Moody 1.010 (1.005-1.025) Urine Protein Negative (Neg-Trace) mg/dL Urine Glucose (UA) Negative (Negative) mg/dL Urine Ketones Negative (Negative) mg/dL Urine Blood Negative (Negative) Urine Nitrite Negative (Negative) Ur Leukocyte Esterase Negative (Negative) Urine RBC 0-2 (0-2) /HPF Urine WBC 0-5 (0-5) /HPF Ur Squamous Epith Cells 0-2 (0-2) /HPF Urine Bacteria None Seen (None Seen) Hyaline Casts 0-2 (0-2) /LPF External Record Review External record reviewed: Outpatient record and Prior outpatient radiology Tests considered The following testing was considered but not selected: MRI of spine considered but patient is non focal neurologically Discharge Plan Discharge Clinical Impression: Back pain Patient Disposition: Home, Self-Care Instructions: Back Pain (ED), R.I.C.E. Treatment (ED) Prescriptions: No Action gabapentin 100 mg capsule 100 mg PO TID 30 Days Qty: 90 2RF bisacodyl [Dulcolax (bisacodyl)] 5 mg tablet,delayed release (DR/EC) 20 mg PO ONCE 1 Days Qty: 4 0RF Rx Instructions: take at noon the day before colonoscopy peg 3350-electrolytes 236-22.74-6.74 -5.86 gram recon soln 240 ml PO Q10M Qty: 4000 0RF Rx Instructions: Refer to prep instructions given/ mailed to you from GI OFFICE. until fecal effluent is clear levothyroxine 75 mcg tablet 75 mcg PO DAILY Qty: 90 1RF bupropion HCl 150 mg tablet extended release 24 hr 150 mg PO QAM 90 Days Qty: 90 0RF acetaminophen [Tylenol Extra Strength] 500 mg tablet 500 mg PO Q6H PRN (Reason: fever or pain) Qty: 14 0RF lidocaine [Lidoderm] 5 % adhesive patch,medicated 1 patch topical DAILY MDD remove after 12 hours PRN (Reason: pain) Qty: 30 0RF Rx Instructions: leave on most painful area for up to 12 hrs naproxen 500 mg tablet 500 mg PO BID PRN (Reason: pain) 10 Days Qty: 20 0RF cyclobenzaprine 5 mg tablet 5 mg PO Q8H PRN (Reason: pain (scale score 7-10)) 5 Days Qty: 14 0RF ibuprofen 600 mg tablet 600 mg PO Q6H PRN (Reason: pain) Qty: 20 0RF Referrals: Danay Benítez MD [Primary Care Provider] - 3 days Stand Alone Forms: Work/School Release
[2023-09-12 08:39] LABS: Bacteria Urine None Seen (None Seen); Hyaline Casts Urine 0-2 /LPF (0-2); RBC Urine 0-2 /HPF (0-2); Squamous Epithelial Cell Urine 0-2 /HPF (0-2); WBC Urine 0-5 /HPF (0-5)
[2023-09-12] MEDS: Ketorolac Tromethamine 60 MG/2 ML VIAL IM (09:07)
[2023-09-12 09:09] VITALS: BP 125/63; PULSE 72; RESP 16; TEMP 36.8; O2SAT 98
== END 2023-09-12 09:19 | disposition home or self-care (01) ==
PROVIDERS: Emergency Provider Emergency Medicine; PCP Internal Medicine
DX: M54.9 Dorsalgia, unspecified (principal)
CPT/HCPCS: 81001; 96372; 99284; J1885

== ENCOUNTER → 2023-09-19 08:27 | Outpatient (BNVA) | payer OTHER, SELFPAY | PROVIDERS: PCP Internal Medicine; Visit Provider Internal Medicine | DX: S16.1XXA Strain of muscle, fascia and tendon at neck level, initial encounter (principal); W01.198A Fall on same level from slipping, tripping and stumbling with subsequent striking against other object, initial encounter | CPT/HCPCS: 99203 ==

== ENCOUNTER → 2023-09-26 11:40 | Outpatient (BNVA) | payer OTHER, SELFPAY | PROVIDERS: PCP Internal Medicine; Visit Provider Internal Medicine | DX: M54.50 Low back pain, unspecified (principal); M54.2 Cervicalgia | CPT/HCPCS: 99213 ==

== ENCOUNTER → 2023-10-12 11:12 | Outpatient (BNVA) | payer OTHER, SELFPAY | PROVIDERS: PCP Internal Medicine; Visit Provider Internal Medicine | DX: M54.2 Cervicalgia (principal); M54.50 Low back pain, unspecified; M25.551 Pain in right hip | CPT/HCPCS: 99213 ==

== ENCOUNTER → 2023-10-26 13:36 | Outpatient (BNVA) | payer OTHER, SELFPAY | PROVIDERS: PCP Internal Medicine; Visit Provider Internal Medicine | DX: M54.2 Cervicalgia (principal); M54.50 Low back pain, unspecified | CPT/HCPCS: 99213 ==

== ENCOUNTER → 2023-11-09 11:15 | Outpatient (BNVA) | payer OTHER, SELFPAY | PROVIDERS: PCP Internal Medicine; Visit Provider Internal Medicine | DX: S39.012D Strain of muscle, fascia and tendon of lower back, subsequent encounter (principal); S16.1XXD Strain of muscle, fascia and tendon at neck level, subsequent encounter; W01.198D Fall on same level from slipping, tripping and stumbling with subsequent striking against other object, subsequent encounter | CPT/HCPCS: 99213 ==

== ENCOUNTER 2023-11-13 15:00 | Outpatient (RCR) | payer OTHER, SELFPAY ==
--- NOTE | 2023-09-28 15:31 | MHC.PT.EP ---
[facility] [place] Office [place] Office [place] Office [address] Rosalba Johnston [address] [phone] F: [phone] F: [phone] F: [phone] F: [phone] Physical Therapy Plan of Care Date of Evaluation: 09/28/23 Date of Surgery: NA Diagnosis: BACK AND NECK STRAIN Assessment: Pt IS 47 YO F REFERRED TO PT FROM (DR [facility]) WITH NECK AND BACK STRAIN S/P FALL ON ICE GETTING OUT OF CAR. REPORTS FELT OK INITIALLY THEN 2 DAYS LATER PAIN IN BACK AND NECK. TO ER, TO , REFERRED TO PT. PRESENTS WITH GENERALIZED TIGHTNESS IN UT/CERV MMS, LUMBAR/LE MMS. MAY HAVE SLIGHT PELVIC ASYMMETRY WITH ANTALGIC GT NOTED. 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 SHOULD BENEFIT FROM PT TO ADDRESS THESE ISSUES WITH ST WORK, STRETCHING AND STRENGTHENING Frequency and Duration: The patient will be seen 2X/WK X 6 WKS Short Term Goals: 1.INCREASED AWARENESS BACK/NECK CARE AND POSTURE 2. Pt TO REPORT LESS PAIN WITH END ROM NECK AND TRUNK 3. IMPROVED GT PATTERN (LESS LIMP) AND TO REPORTS LESS FEELING OF ASYMMETRY 4. Pt TO PERF 2-3 TASKS WITH PROPER BODY MECH Rehabilitation Program Coordinator Goals: 1. DECREASED NECK PAIN AT LEAST 50% WITH ADLS 2. DECREASED BACK PAIN AT LEAST 50% WITH ADLS 3. I HEP WITH DC EX PLAN 4. RTW Treatment Plan: Modalities to reduce pain, spasms and effusion. Manual therapy to restore motion and function. Therapeutic exercise to improve strength and flexibility. Neuromuscular re-education for posture and balance. Therapeutic activities to return to functional activities of daily living. Electronically signed by: KEE SANCHEZ PT Please sign and return to therapist. Thank you for your referral.
--- NOTE | 2024-01-09 15:20 | MHC.PT.DC ---
[facility] [place] Office [place] Office [place] Office [address] Rosalba Johnston [address] [phone] F: [phone] F: [phone] F: [phone] F: [phone] Physical Therapy Discharge Report Diagnosis: BACK AND NECK STRAIN Date of Surgery: DOI 09/10/23 Date of Evaluation: 09/28/23 Date of Discharge: 01/09/24 Treatments to Date: 7 Cancellations to Date: No Shows to Date: Discharge Status: Improved Function Independent with HEP Patient Elected to Stop Discharge Summary: PER ASSESSMENT AT LAST PT SESSION ON 11/13/23 LESS LIMP, REPORTS LESS FEELINGS OF ASYMMETRY, BUT REPORTS SOMETIMES SHE LOSES HER BALANCE. REPORTS LESS UPPER BACK PAIN BUT CONTINUED R LBP. Pt CONTINUES WITH END RANGE PAIN WITH LUMBAR ROM. TO SEE [facility] AND HAS MRI REFERRAL. WOULD BENEFIT FROM CONTINUED PT 1X/WK X 4 WKS TO FURTHER STRETCH AND STRENGTHEN AND ASSESS MRI/PAIN MANAGEMENT Pt SAW PX MANAGEMENT ON 12/19/23. PER THAT NOTE PLAN IS FOR L4-5 EPIDURAL STEROID INJECTION Electronically signed by: KEE SANCHEZ PT Please sign and return to therapist. Thank you for your referral.
== END 2024-01-09 15:22 | disposition home or self-care (01) ==
LOC: HO.PT 15:00
PROVIDERS: PCP Internal Medicine; Visit Provider Internal Medicine
DX: M54.50 Low back pain, unspecified (principal); S46.911D Strain of unspecified muscle, fascia and tendon at shoulder and upper arm level, right arm, subsequent encounter
CPT/HCPCS: 97110; 97140; 97162; 97535

== ENCOUNTER 2023-11-14 14:20 | Outpatient (AMB) | payer OTHER, SELFPAY ==
--- NOTE | 2023-11-14 14:37 | A.OFFVIS_ITS ---
Intake Vital Signs 11/14/23 14:42 Height 5 ft 6 in Weight 191 lb 6 oz BMI 30.9 BP 125/76 Blood Pressure Location Lt brachial Position Sitting Respiration 16 Pulse 88 Pulse Source Pulse Oximeter Pulse Oximetry (%) 99 Oxygen Delivery Method Room Air Intake Visit Reasons: Lower Back Pain Allergies No Known Allergies [No Known Allergies*] Allergy (Verified 11/14/23 14:37) HPI HPI Comments History of Present Illness Details Marie is a very pleasant Singaporean-speaking female who presented to the office today for evaluation management of her lower back pain. Visit was completed today was Singaporean interpretation by Roula Dozier. Patient reports the pain started in September after she slipped on the ice, fell landing on her buttocks. She had x-rays completed and has been taking Flexeril without improvement of her pain. She has tried Tylenol without improvement of her pain. She is unable to tolerate oral nonsteroidal anti-inflammatory medications due to history of gastric surgery. She has been using icy hot with some improvement. She is doing home exercise program and physical therap, states it provide her minimal improvement of her pain. She is prescribed gabapentin by her primary care doctor which does not provide her any relief. Pain midline lower back with radiation down her right lateral thigh past the level of the knee. She reports the pain is worse at night and when she tries to get up in the morning. Heat helps some but otherwise she has not able to find a position of comfort or anything to improve her pain. Patient denies red flag symptoms including new loss of bowel, bladder or saddle anesthesia She denies history of back surgeries. She denies implantable devices Denies current use of anticoagulant [facility] Medical History Physical exam Pre-op evaluation Trigger finger, left middle finger URI (upper respiratory infection) Muscle spasm Class 1 obesity with body mass index (BMI) of 31.0 to 31.9 in adult Vitamin D deficiency Vitamin A deficiency Panniculitis Intestinal malabsorption following gastrectomy Overweight Hypothyroidism Surgical History S/P laparoscopic sleeve gastrectomy History of total abdominal hysterectomy and bilateral salpingo-oophorectomy History of carpal tunnel release Family History Father No problems noted. Mother Hypertension Paternal Aunt Breast cancer Paternal Grandfather Hypertension Diabetes CVD (cardiovascular disease) Stroke Social History Household Members: Children Housing: House Do you presently have visiting nurse or other home services: No Alcohol intake: current Alcohol intake frequency: holidays/special occasions only Alcohol type: wine and hard liquor Patient Tobacco Use Status: Never used Tobacco e-Cigarette/Vaping Use: Never Used Second Hand Smoke Exposure: No Advance Directives Date on File: 04/04/22 service: No Current occupational status: employed Current occupational exposures/hazards: No Cognitive needs: No Hearing needs: No Vision needs: Yes Review of Systems Const All systems reviewed & are unremarkable except as noted in HPI and below Physical Exam Vital Signs: Last Vital Signs Pulse 88 11/14/23 14:42 Resp 16 11/14/23 14:42 BP 125/76 11/14/23 14:42 Pulse Ox 99 11/14/23 14:42 Oxygen Delivery Method Room Air 11/14/23 14:42 BMI result Body Mass Index 30.9 General: awake, alert, oriented. Answers questions appropriately. Fully engaged in examination. Skin: warm, dry, intact HEENT: Normocephalic. Hearing intact. Cardiac: External chest normal in appearance. Respiratory: No cough, audible wheezing or stridor. Abdomen: without gross distension. MS: No obvious swelling or deformities. Able to stand on bilateral tiptoes and bilateral heels.? Able to transition from sit to stand unassisted. Ambulates with bilaterally normal heel strike and toe off SLR with dorsiflexion positive on the right Bilateral lower extremity strength 5/5, negative clonus Tenderness over midline lumbar for her pain lumbar paraspinal muscles Range of motion with flexion to 60 degrees, extension to 10 degrees Neurological: Oriented to person, place, time and situation. Thought process intact. No gait abnormalities appreciated. Psychiatric: Appropriate mood and affect. Good judgment and insight. Results Reviewed Results Reviewed: 09/10/2023 Thoracic: Vertebral body heights are normal. Alignment is anatomic without spondylolisthesis. Mild intervertebral disc height loss. Small to moderate multilevel anterior osteophytes. Paraspinal soft tissues are unremarkable. Lumbar: Vertebral body heights are normal. No fracture or spondylolisthesis. Mild intervertebral disc height loss from L4 through S1 with moderate associated facet arthropathy. Small multilevel anterior osteophytes. Soft tissues are unremarkable. Imaged portions of the sacroiliac joints are normal. IMPRESSION: 1. No acute fracture or malalignment of the thoracic and lumbar spine. 2. Mild to moderate thoracic and lumbar spondylosis. Assessment & Plan Assessment & Plan (1) Lumbar radiculopathy: Code(s): M54.16 - Radiculopathy, lumbar region (2) Myofascial low back pain: Code(s): M54.50 - Low back pain, unspecified (3) Strain of lumbar paraspinal muscle: Code(s): S39.012A - Strain of muscle, fascia and tendon of lower back, initial encounter Plan Marie is a very pleasant 39-year-old female who presented to the office today for evaluation management of her chronic lower back pain. History, physical exam and provocative testing consistent with lumbar radiculopathy. Patient has exhausted conservative therapy including PT, home exercise program, [id number] medications, nonsteroidal anti-inflammatory medications, muscle relaxers, heat and topical medications. MRI lumbar spine without contrast ordered for further evaluation given patient's reported radicular symptoms Discontinue Flexeril, methocarbamol 500 mg p.o. TID. Patient advised cautions for use. Diclofenac topical gel. Apply to most painful area twice daily as needed All questions and concerns were answered, patient agrees with the plan. Follow- up in the office after MRI to review results and formulate a treatment plan based on results. Orders: Orders MR lumbar spine wo con Today M54.16 - Radiculopathy, lumbar region Medications: New diclofenac sodium 3% apply to most painful area twice daily as needed for pain 1 appl topical BID 100 grams 0RF methocarbamol Discontinue use of Cyclobenzaprine No driving while taking this medication. Do no take with alcohol or other EMERGENCY WORKER Depressants 500 mg PO TID PRN 90 tabs 1RF muscle spasm Quality Reporting (2019) Adult ([facility] 138/10/25/68) Smoking risk assessment performed?: Yes Patient Tobacco Use Status: Never used T obacco Coding Level of Care Code New Pt Level 4 (87869) Diagnoses Lumbar radiculopathy M54.16 Myofascial low back pain M54.50 Strain of lumbar paraspinal muscle S39.012A
[2023-11-14 14:42] VITALS: BP 125/76; PULSE 88; RESP 16; O2SAT 99; BMI 30.9
== END 2023-11-14 15:08 | disposition home or self-care (01) ==
PROVIDERS: PCP Internal Medicine; Visit Provider Registered Nurse Emergency
DX: M54.16 Radiculopathy, lumbar region (principal); M54.50 Low back pain, unspecified; S39.012A Strain of muscle, fascia and tendon of lower back, initial encounter
CPT/HCPCS: 99204

== ENCOUNTER → 2023-11-14 14:20 | Outpatient (BNVA) | payer OTHER, SELFPAY | PROVIDERS: PCP Internal Medicine; Visit Provider Registered Nurse Emergency | DX: M54.16 Radiculopathy, lumbar region (principal); S39.012A Strain of muscle, fascia and tendon of lower back, initial encounter | CPT/HCPCS: 99202 ==

== ENCOUNTER 2023-11-17 07:33 | Outpatient (REF) | payer OTHER, SELFPAY ==
--- NOTE | ~2023-11-17 | MM_ITS ---
EXAMINATION: MM SCREENING DIGITAL BREAST TOMOSYNTHESIS, BILATERAL CLINICAL INFORMATION: Screening. Asymptomatic. COMPARISON: Mammography: This study is compared with prior exams dating back to 2020. TECHNIQUE: Digital breast tomosynthesis is performed in both the craniocaudal and mediolateral oblique views along with computer-aided detection (CAD). Synthesized 2D images are generated from the tomosynthesis. FINDINGS: The breasts are almost entirely fatty (ACR BI-RADS breast composition Category a). There are no significant masses, abnormal calcifications, or other abnormalities. MM/MM tomosynthesis screening BI IMPRESSION: No mammographic evidence of malignancy. ASSESSMENT: BI-RADS BI-RADS 1 - Negative RECOMMENDATION: Routine annual mammography screening. 1 year F/U This examination should not preclude the clinical evaluation of a suspicious palpable abnormality. This patient's information was entered into a reminder system with a target due date for their next mammogram.
== END 2023-11-17 07:34 | disposition home or self-care (01) ==
LOC: HO.MAMMO 07:33
PROVIDERS: PCP Internal Medicine; Visit Provider Internal Medicine
DX: Z12.31 Encounter for screening mammogram for malignant neoplasm of breast (principal)
CPT/HCPCS: 77063; 77067

== ENCOUNTER → 2023-11-17 07:45 | Outpatient (BNV) | payer OTHER, SELFPAY | PROVIDERS: PCP Internal Medicine; Visit Provider Radiology Diagnostic Radiology | DX: Z12.31 Encounter for screening mammogram for malignant neoplasm of breast (principal) | CPT/HCPCS: 77063; 77067 ==

== ENCOUNTER 2023-12-05 19:40 | Outpatient (REF) | payer OTHER, SELFPAY ==
--- NOTE | ~2023-12-05 | MR_ITS ---
EXAMINATION: MR LUMBAR SPINE WITHOUT CONTRAST CLINICAL INFORMATION: Radiculopathy COMPARISON: None TECHNIQUE: MRI of the lumbar spine was obtained using routine sequences without contrast. FINDINGS: Normal anatomic alignment. No suspicious marrow signal or focal osseous lesion. Right-sided predominant endplate marrow edema at L4-L5. Small L4 inferior endplate Schmorl's node. The vertebral body heights are maintained. The intervertebral discs are of normal height and signal. The conus medullaris terminates at the level of T12-L1. The distal spinal cord is normal in appearance. The cauda equina nerve roots appear normal. No significant abnormalities of the paraspinal musculature. Limited evaluation of the intra-abdominal structures without significant abnormalities. The abdominal aorta is of normal contour and caliber. SPINAL LEVELS: L1-L2: No significant spinal canal or neuroforaminal narrowing. Shallow disc bulge. L2-L3: Broad-based disc bulge, mild facet arthropathy, ligamentum flavum thickening. Mild central spinal canal stenosis. Mild bilateral neural foraminal narrowing L3-L4: Shallow right eccentric disc bulge. Facet arthropathy. Ligamentum flavum thickening. Mild central spinal canal stenosis. Right greater than left subarticular zone narrowing. Mild left and mild to moderate right neural foraminal narrowing L4-L5: Broad-based disc bulge. Facet arthropathy. Ligamentum flavum thickening. Moderate central spinal canal stenosis. Bilateral subarticular zone narrowing with likely impingement of the traversing L5 nerve roots. Mild bilateral neural foraminal narrowing L5-S1: Facet arthropathy with small joint effusions. Shallow disc bulge. No significant spinal canal stenosis. Mild bilateral neural foraminal narrowing. MR/MR lumbar spine wo con IMPRESSION: Multilevel lumbar spondylosis as described above, worst at L4-L5 where there is moderate spinal canal stenosis and bilateral subarticular zone narrowing with likely impingement of the traversing L5 nerve roots.
== END 2023-12-05 19:41 | disposition home or self-care (01) ==
LOC: HO.MRI 19:40
PROVIDERS: PCP Internal Medicine; Visit Provider Internal Medicine
DX: M54.16 Radiculopathy, lumbar region (principal); M54.50 Low back pain, unspecified
CPT/HCPCS: 72148

== ENCOUNTER → 2023-12-10 11:50 | Outpatient (BNVA) | payer OTHER, SELFPAY | PROVIDERS: PCP Internal Medicine; Visit Provider Internal Medicine | DX: M51.36 Other intervertebral disc degeneration, lumbar region (principal); M47.816 Spondylosis without myelopathy or radiculopathy, lumbar region | CPT/HCPCS: 99213 ==

== ENCOUNTER 2023-12-19 11:22 | Outpatient (AMB) | payer OTHER, SELFPAY ==
[2023-12-19 11:29] VITALS: BP 113/69; PULSE 82; RESP 82; O2SAT 99; BMI 30.6
--- NOTE | 2023-12-19 11:29 | MHC.OFFVIS ---
Intake Vital Signs 12/19/23 11:29 Height 5 ft 6 in Weight 189 lb 7 oz BMI 30.6 BP 113/69 Blood Pressure Location Lt brachial Position Sitting Respiration 82 H Pulse 82 Pulse Source Pulse Oximeter Pulse Oximetry (%) 99 Oxygen Delivery Method Room Air Intake Visit Reasons: MRI FOLLOW UP Allergies No Known Allergies [No Known Allergies*] Allergy (Verified 11/14/23 14:37) HPI HPI Comments History of Present Illness Details Patient presents back to the office today for follow-up, review recent MRI MRI reviewed with patient, results as per below Patient continues with right lower back pain with radiation down her right leg. No improvement with physical therapy that she just completed. She reports some improvement with the topical diclofenac and muscle relaxers though the pain returns once the medication wears off. Denies red flag symptoms including new loss of bowel, bladder or saddle anesthesia. Prior: Marie is a very pleasant Ukrainian-speaking female who presented to the office today for evaluation management of her lower back pain. Visit was completed today was Ukrainian interpretation by Roula Dozier. Patient reports the pain started in September after she slipped on the ice, fell landing on her buttocks. She had x-rays completed and has been taking Flexeril without improvement of her pain. She has tried Tylenol without improvement of her pain. She is unable to tolerate oral nonsteroidal anti-inflammatory medications due to history of gastric surgery. She has been using icy hot with some improvement. She is doing home exercise program and physical therap, states it provide her minimal improvement of her pain. She is prescribed gabapentin by her primary care doctor which does not provide her any relief. Pain midline lower back with radiation down her right lateral thigh past the level of the knee. She reports the pain is worse at night and when she tries to get up in the morning. Heat helps some but otherwise she has not able to find a position of comfort or anything to improve her pain. Patient denies red flag symptoms including new loss of bowel, bladder or saddle anesthesia She denies history of back surgeries. She denies implantable devices Denies current use of anticoagulant [facility] Medical History Physical exam Pre-op evaluation Trigger finger, left middle finger URI (upper respiratory infection) Muscle spasm Class 1 obesity with body mass index (BMI) of 31.0 to 31.9 in adult Vitamin D deficiency Vitamin A deficiency Panniculitis Intestinal malabsorption following gastrectomy Overweight Hypothyroidism Surgical History S/P laparoscopic sleeve gastrectomy History of total abdominal hysterectomy and bilateral salpingo-oophorectomy History of carpal tunnel release Family History Father No problems noted. Mother Hypertension Paternal Aunt Breast cancer Paternal Grandfather Hypertension Diabetes CVD (cardiovascular disease) Stroke Social History Household Members: Children Housing: House Do you presently have visiting nurse or other home services: No Alcohol intake: current Alcohol intake frequency: holidays/special occasions only Alcohol type: wine and hard liquor Patient Tobacco Use Status: Never used Tobacco e-Cigarette/Vaping Use: Never Used Second Hand Smoke Exposure: No Advance Directives Date on File: 04/04/22 service: No Current occupational status: employed Current occupational exposures/hazards: No Cognitive needs: No Hearing needs: No Vision needs: Yes Review of Systems Const All systems reviewed & are unremarkable except as noted in HPI and below Physical Exam Vital Signs: Last Vital Signs Pulse 82 12/19/23 11:29 Resp 82 H 12/19/23 11:29 BP 113/69 12/19/23 11:29 Pulse Ox 99 12/19/23 11:29 Oxygen Delivery Method Room Air 12/19/23 11:29 BMI result Body Mass Index 30.6 General: awake, alert, oriented. Answers questions appropriately. Fully engaged in examination. Skin: warm, dry, intact HEENT: Normocephalic. Hearing intact. Cardiac: External chest normal in appearance. Respiratory: No cough, audible wheezing or stridor. Abdomen: without gross distension. MS: No obvious swelling or deformities. Able to transition from sit to stand unassisted. Ambulates with bilaterally normal heel strike and toe off SLR with dorsiflexion positive on the right Bilateral lower extremity strength 5/5, negative clonus, negative footdrop Neurological: Oriented to person, place, time and situation. Thought process intact. No gait abnormalities appreciated. Psychiatric: Appropriate mood and affect. Good judgment and insight. Results Reviewed Results Reviewed: 12/05/23 MR/MR lumbar spine wo con FINDINGS: Normal anatomic alignment. No suspicious marrow signal or focal osseous lesion. Right-sided predominant endplate marrow edema at L4-L5. Small L4 inferior endplate Schmorl's node. The vertebral body heights are maintained. The intervertebral discs are of normal height and signal. The conus medullaris terminates at the level of T12-L1. The distal spinal cord is normal in appearance. The cauda equina nerve roots appear normal. No significant abnormalities of the paraspinal musculature. Limited evaluation of the intra-abdominal structures without significant abnormalities. The abdominal aorta is of normal contour and caliber. SPINAL LEVELS: L1-L2: No significant spinal canal or neuroforaminal narrowing. Shallow disc bulge. L2-L3: Broad-based disc bulge, mild facet arthropathy, ligamentum flavum thickening. Mild central spinal canal stenosis. Mild bilateral neural foraminal narrowing L3-L4: Shallow right eccentric disc bulge. Facet arthropathy. Ligamentum flavum thickening. Mild central spinal canal stenosis. Right greater than left subarticular zone narrowing. Mild left and mild to moderate right neural foraminal narrowing L4-L5: Broad-based disc bulge. Facet arthropathy. Ligamentum flavum thickening. Moderate central spinal canal stenosis. Bilateral subarticular zone narrowing with likely impingement of the traversing L5 nerve roots. Mild bilateral neural foraminal narrowing L5-S1: Facet arthropathy with small joint effusions. Shallow disc bulge. No significant spinal canal stenosis. Mild bilateral neural foraminal narrowing. IMPRESSION: Multilevel lumbar spondylosis as described above, worst at L4-L5 where there is moderate spinal canal stenosis and bilateral subarticular zone narrowing with likely impingement of the traversing L5 nerve roots. Assessment & Plan Assessment & Plan (1) Lumbar radiculopathy: Code(s): M54.16 - Radiculopathy, lumbar region (2) Myofascial low back pain: Code(s): M54.50 - Low back pain, unspecified (3) Strain of lumbar paraspinal muscle: Code(s): S39.012A - Strain of muscle, fascia and tendon of lower back, initial encounter Plan Marie is a very pleasant 48-year-old female who presented to the office today for follow-up, review recent MRI MRI reviewed, results as per above History, imaging, physical exam and provocative testing consistent with lumbar radiculopathy. Patient has exhausted conservative therapy including PT, home exercise program, [id number] medications, nonsteroidal anti-inflammatory medications, muscle relaxers, heat and topical medications. Continue methocarbamol 500 mg p.o. TID. Patient advised cautions for use. Refill sent today Continue Diclofenac topical gel. Apply to most painful area twice daily as needed. Refill sent today Discussed diagnosis at length and options for treatment including diagnostic interventional testing, epidural steroid injections, peripheral nerve stimulation with Sprint, RFA and more permanent neuromodulation. Will schedule for fluoroscopy guided right L4-L5 epidural steroid injection with local anesthetic. All questions and concerns have been answered and patient agrees with the plan. Follow up after injections and sooner if needed. Medications: Changed From methocarbamol Discontinue use of Cyclobenzaprine No driving while taking this medication. Do no take with alcohol or other CUSTOMER SUCCESS REPRESENTATIVE Depressants 500 mg PO TID PRN 90 tabs 1RF muscle spasm To methocarbamol No driving while taking this medication. Do no take with alcohol or other CUSTOMER SUCCESS REPRESENTATIVE Depressants 500 mg PO TID PRN 90 tabs 1RF muscle spasm Quality Reporting (2020) Adult ([facility] 138//) Smoking risk assessment performed?: Yes Patient Tobacco Use Status: Never used Tobacco Coding Level of Care Code Est Pt Level 3 (25284) Diagnoses Lumbar radiculopathy M54.16 Myofascial low back pain M54.50 Strain of lumbar paraspinal muscle S39.012A
== END 2023-12-19 11:36 | disposition home or self-care (01) ==
PROVIDERS: PCP Internal Medicine; Visit Provider Registered Nurse Emergency
DX: M54.16 Radiculopathy, lumbar region (principal); M54.50 Low back pain, unspecified; S39.012A Strain of muscle, fascia and tendon of lower back, initial encounter
CPT/HCPCS: 99213

== ENCOUNTER → 2023-12-19 11:22 | Outpatient (BNVA) | payer OTHER, SELFPAY | PROVIDERS: PCP Internal Medicine; Visit Provider Registered Nurse Emergency | DX: M54.50 Low back pain, unspecified (principal); M54.16 Radiculopathy, lumbar region; S39.012A Strain of muscle, fascia and tendon of lower back, initial encounter | CPT/HCPCS: 99212 ==

== ENCOUNTER 2024-02-19 06:05 | Outpatient (REF) | payer OTHER, SELFPAY ==
--- NOTE | ~2024-02-19 | FL_ITS ---
EXAMINATION: XR FLUOROSCOPY WITH IMAGES CLINICAL INFORMATION: Lumbar radiculopathy. COMPARISON: CT of the abdomen and pelvis 03/30/2022. TECHNIQUE: Fluoroscopy Supervised By: Dr. Kang. Fluoroscopy Time: 0.3. Cumulative Dose: 5.02 mGy. DAP: 1.36 Gycm2. Images: 1. FINDINGS: Intraoperative fluoroscopy and spot films were performed during a procedure in the OR. A spinal needle is seen via a transforaminal approach, at likely L4 on the right. Please correlate with Pearl's report for complete details. FL/FL guidance in treatment room IMPRESSION: Intraoperative fluoroscopy and spot films were obtained. Please see Dr. Kang's report for complete details.
== END 2024-02-19 06:06 | disposition home or self-care (01) ==
LOC: CF 06:05
PROVIDERS: Visit Provider Anesthesiology
DX: M54.16 Radiculopathy, lumbar region (principal); M54.50 Low back pain, unspecified
CPT/HCPCS: 64483; J3301; Q9967

== ENCOUNTER 2024-02-19 07:54 | Outpatient (AMB) | payer OTHER, SELFPAY ==
--- NOTE | 2024-02-19 08:06 | MHC.OFFVIS ---
Vital Signs 02/19/24 08:39 02/19/24 08:40 Height 5 ft 5 in Weight 189 lb BMI 31.4 BP 128/74 118/72 Blood Pressure Location Lt brachial Lt brachial Position Sitting Sitting Respiration 16 16 Pulse 74 68 Pulse Source Pulse Oximeter Pulse Oximeter Pulse Oximetry (%) 97 98 Oxygen Delivery Method Room Air Room Air Comment Pre-Op Post-Op Intake Visit Reasons: RIGHT L4, L5, KIN Allergies No Known Allergies [No Known Allergies*] Allergy (Verified 11/14/23 14:37) [facility] Medical History Physical exam Pre-op evaluation Trigger finger, left middle finger URI (upper respiratory infection) Muscle spasm Class 1 obesity with body mass index (BMI) of 31.0 to 31.9 in adult Vitamin D deficiency Vitamin A deficiency Panniculitis Intestinal malabsorption following gastrectomy Overweight Hypothyroidism Surgical History S/P laparoscopic sleeve gastrectomy History of total abdominal hysterectomy and bilateral salpingo-oophorectomy History of carpal tunnel release Family History Father No problems noted. Mother Hypertension Paternal Aunt Breast cancer Paternal Grandfather Hypertension Diabetes CVD (cardiovascular disease) Stroke Social History Household Members: Children Housing: House Do you presently have visiting nurse or other home services: No Alcohol intake: current Alcohol intake frequency: holidays/special occasions only Alcohol type: wine and hard liquor Patient Tobacco Use Status: Never used Tobacco e-Cigarette/Vaping Use: Never Used Second Hand Smoke Exposure: No Advance Directives Date on File: 04/04/22 service: No Current occupational status: employed Current occupational exposures/hazards: No Cognitive needs: No Hearing needs: No Vision needs: Yes Physical Exam Vital Signs: Last Vital Signs Pulse 68 02/19/24 08:40 Resp 16 02/19/24 08:40 BP 118/72 02/19/24 08:40 Pulse Ox 98 02/19/24 08:40 Oxygen Delivery Method Room Air 02/19/24 08:40 BMI result Body Mass Index 31.4 Quality Reporting (2019) Adult (CMS 138/2//) Smoking risk assessment performed?: Yes Patient Tobacco Use Status: Never used Tobacco Assessment & Plan Assessment & Plan (1) Lumbar radiculopathy: Code(s): M54.16 - Radiculopathy, lumbar region Category: Medical Plan: Transforaminal L4-5 epidural steroid injection on the right. Informed consent was thoroughly explained to the patient before the procedure.? The patient came to the operating room.? She was positioned prone on operating table with a pillow under his abdomen.? Time-out was performed delineating correct site and side of the procedure, nature of the injection, name and date of of the patient. The lower back of the patient was prepped with ChloraPrep and draped with sterile utility towels.? C-arm was brought over the operating field and sq picture of L4 vertebra were demonstrated on the screen.? The right side was chosen as the side of the injection.? Tilting machine ipsilateral to the right at the level of L4 1st the most prominent picture of the right L4 pedicle was obtained on the screen.? 3 mm below the level of the lowest point of the pedicle projection to the skin small amount of lidocaine 1% 3-4 cc was injected to anesthetize the skin.? After that 5 in 22 gauge Quincke point needle was inserted through the skin wheal and was advanced toward the L4-5 foramina on anterior posterior , lateral and oblique views intermittently.? When tip of the needle entered foramina projection on AP view injection of the contrast was performed demonstrating epidural and perineural spread of the contrast.? On the lateral view contrast was spread in the epidural fashion. After that injection of the treatment medicine 4 cc of lidocaine 1% mixed with Kenalog 40 mg was injected into the foramina.? Injection of the contrast and injection of the treatment medicine was observed live on the screen.? No intrathecal and no intravascular spread of the contrast was noted. The patient tolerated procedure well, the sterile Band-Aid was applied the patient went to recovery room uneventfully. (2) Myofascial low back pain: Code(s): M54.50 - Low back pain, unspecified Category: Medical (3) Strain of lumbar paraspinal muscle: Code(s): S39.012A - Strain of muscle, fascia and tendon of lower back, initial encounter Category: Medical Plan Marie is a very pleasant 48-year-old female who presented to the office today for follow-up, review recent MRI MRI reviewed, results as per above History, imaging, physical exam and provocative testing consistent with lumbar radiculopathy. Patient has exhausted conservative therapy including PT, home exercise program, [id number] medications, nonsteroidal anti-inflammatory medications, muscle relaxers, heat and topical medications. Continue methocarbamol 500 mg p.o. TID. Patient advised cautions for use. Refill sent today Continue Diclofenac topical gel. Apply to most painful area twice daily as needed. Refill sent today Discussed diagnosis at length and options for treatment including diagnostic interventional testing, epidural steroid injections, peripheral nerve stimulation with Sprint, RFA and more permanent neuromodulation. Will schedule for fluoroscopy guided right L4-L5 epidural steroid injection with local anesthetic. All questions and concerns have been answered and patient agrees with the plan. Follow up after injections and sooner if needed. Orders: Orders FL guidance in treatment room Today M54.16 - Radiculopathy, lumbar region Coding Level of Care Code Procedure Only Diagnoses Lumbar radiculopathy M54.16 Myofascial low back pain M54.50 Strain of lumbar paraspinal muscle S39.012A
[2024-02-19 08:39] VITALS: BP 128/74; PULSE 74; RESP 16; O2SAT 97; BMI 31.4
[2024-02-19 08:40] VITALS: BP 118/72; PULSE 68; RESP 16; O2SAT 98
== END 2024-02-19 08:39 | disposition home or self-care (01) ==
PROVIDERS: PCP Internal Medicine; Visit Provider Anesthesiology
DX: M54.16 Radiculopathy, lumbar region (principal); M54.50 Low back pain, unspecified; S39.012A Strain of muscle, fascia and tendon of lower back, initial encounter
CPT/HCPCS: 64483

== ENCOUNTER 2024-03-14 08:48 | Outpatient (AMB) | payer OTHER, SELFPAY ==
--- NOTE | 2024-03-14 08:51 | A.OFFVIS_ITS ---
Vital Signs 03/14/24 08:52 03/14/24 08:54 Height 5 ft 6 in Weight 199 lb BMI 32.1 32.1 BP 129/74 Blood Pressure Location Lt brachial Position Sitting Pulse 67 Pulse Source Pulse Oximeter Pulse Oximetry (%) 99 Oxygen Delivery Method Room Air Intake Visit Reasons: RIGHT L4, L5 KIN Allergies No Known Allergies [No Known Allergies*] Allergy (Verified 11/14/23 14:37) Medication List - Last Reconciled 03/14/24 by Linn Osorio acetaminophen (Tylenol Extra Strength) 500 mg PO Q6H PRN bisacodyl (Dulcolax (bisacodyl)) 20 mg (4 x 5 mg) PO ONCE 1 day bupropion HCl XL 150 mg PO QAM cyclobenzaprine 10 mg PO Q8H PRN diclofenac sodium 3% 1 appl topical BID ibuprofen 600 mg PO Q6H PRN levothyroxine 75 mcg PO DAILY lidocaine 5% (Lidoderm) 1 patch topical DAILY PRN MDD remove after 12 hours methocarbamol 500 mg PO TID PRN peg 3350-electrolytes 236-22.74-6.74 -5.86 gram 240 mL PO Q10M HPI Comments Details: Patient presents back to the office today for follow up, 1 month s/p right L4-5 TFESI performed 02/19/[address] Kang she reports some improvement in pain for first 3 days, then pain returned. pain today 10, right lower back with radiation down right leg to mid calf denies red flag symptoms including new loss of bowel, bladder or saddle anesthesia requesting refill on methocarbamol, is able to manage the pain with muscle relaxer and lidocaine patches Prior: Patient presents back to the office today for follow-up, review recent MRI MRI reviewed with patient, results as per below Patient continues with right lower back pain with radiation down her right leg. No improvement with physical therapy that she just completed. She reports some improvement with the topical diclofenac and muscle relaxers though the pain returns once the medication wears off. Denies red flag symptoms including new loss of bowel, bladder or saddle anesthesia. Prior: Marie is a very pleasant Slovenian-speaking female who presented to the office today for evaluation management of her lower back pain. Visit was completed today was Slovenian interpretation by Roula Dozier. Patient reports the pain started in September after she slipped on the ice, fell landing on her buttocks. She had x-rays completed and has been taking Flexeril without improvement of her pain. She has tried Tylenol without improvement of her pain. She is unable to tolerate oral nonsteroidal anti-inflammatory medications due to history of gastric surgery. She has been using icy hot with some improvement. She is doing home exercise program and physical therap, states it provide her minimal improvement of her pain. She is prescribed gabapentin by her primary care doctor which does not provide her any relief. Pain midline lower back with radiation down her right lateral thigh past the level of the knee. She reports the pain is worse at night and when she tries to get up in the morning. Heat helps some but otherwise she has not able to find a position of comfort or anything to improve her pain. Patient denies red flag symptoms including new loss of bowel, bladder or saddle anesthesia She denies history of back surgeries. She denies implantable devices Denies current use of anticoagulant [facility] Medical History Physical exam Pre-op evaluation Trigger finger, left middle finger URI (upper respiratory infection) Muscle spasm Class 1 obesity with body mass index (BMI) of 31.0 to 31.9 in adult Vitamin D deficiency Vitamin A deficiency Panniculitis Intestinal malabsorption following gastrectomy Overweight Hypothyroidism Surgical History S/P laparoscopic sleeve gastrectomy History of total abdominal hysterectomy and bilateral salpingo-oophorectomy History of carpal tunnel release Family History Father No problems noted. Mother Hypertension Paternal Aunt Breast cancer Paternal Grandfather Hypertension Diabetes CVD (cardiovascular disease) Stroke Social History Household Members: Children Housing: House Do you presently have visiting nurse or other home services: No Alcohol intake: current Alcohol intake frequency: holidays/special occasions only Alcohol type: wine and hard liquor Patient Tobacco Use Status: Never used Tobacco e-Cigarette/Vaping Use: Never Used Second Hand Smoke Exposure: No Advance Directives Date on File: 04/04/22 service: No Current occupational status: employed Current occupational exposures/hazards: No Cognitive needs: No Hearing needs: No Vision needs: Yes Review of Systems Const All systems reviewed & are unremarkable except as noted in HPI and below Physical Exam Vital Signs: Last Vital Signs Pulse 67 03/14/24 08:52 BP 129/74 03/14/24 08:52 Pulse Ox 99 03/14/24 08:52 Oxygen Delivery Method Room Air 03/14/24 08:52 BMI result Body Mass Index 32.1 General: awake, alert, oriented. Answers questions appropriately. Fully engaged in examination. Skin: warm, dry, intact HEENT: Normocephalic. Hearing intact. Cardiac: External chest normal in appearance. Respiratory: No cough, audible wheezing or stridor. Abdomen: without gross distension. MS: No obvious swelling or deformities. Able to transition from sit to stand unassisted. Ambulates with bilaterally normal heel strike and toe off SLR with dorsiflexion positive on the right Bilateral lower extremity strength 5/5, negative clonus, negative footdrop Tenderness over right lumbar vertebrae and paraspinal muscles nontender over PSIS Neurological: Oriented to person, place, time and situation. Thought process intact. No gait abnormalities appreciated. Psychiatric: Appropriate mood and affect. Good judgment and insight. Quality Reporting (2019) Adult ([facility] 138/10/25/68) Smoking risk assessment performed?: Yes Patient Tobacco Use Status: Never used Tobacco Results Reviewed Results Reviewed: 12/05/23 MR/MR lumbar spine wo con FINDINGS: Normal anatomic alignment. No suspicious marrow signal or focal osseous lesion. Right-sided predominant endplate marrow edema at L4-L5. Small L4 inferior endplate Schmorl's node. The vertebral body heights are maintained. The intervertebral discs are of normal height and signal. The conus medullaris terminates at the level of T12-L1. The distal spinal cord is normal in appearance. The cauda equina nerve roots appear normal. No significant abnormalities of the paraspinal musculature. Limited evaluation of the intra-abdominal structures without significant abnormalities. The abdominal aorta is of normal contour and caliber. SPINAL LEVELS: L1-L2: No significant spinal canal or neuroforaminal narrowing. Shallow disc bulge. L2-L3: Broad-based disc bulge, mild facet arthropathy, ligamentum flavum thickening. Mild central spinal canal stenosis. Mild bilateral neural foraminal narrowing L3-L4: Shallow right eccentric disc bulge. Facet arthropathy. Ligamentum flavum thickening. Mild central spinal canal stenosis. Right greater than left subarticular zone narrowing. Mild left and mild to moderate right neural foraminal narrowing L4-L5: Broad-based disc bulge. Facet arthropathy. Ligamentum flavum thickening. Moderate central spinal canal stenosis. Bilateral subarticular zone narrowing with likely impingement of the traversing L5 nerve roots. Mild bilateral neural foraminal narrowing L5-S1: Facet arthropathy with small joint effusions. Shallow disc bulge. No significant spinal canal stenosis. Mild bilateral neural foraminal narrowing. IMPRESSION: Multilevel lumbar spondylosis as described above, worst at L4-L5 where there is moderate spinal canal stenosis and bilateral subarticular zone narrowing with likely impingement of the traversing L5 nerve roots. Assessment & Plan Assessment & Plan (1) Lumbar radiculopathy: Code(s): M54.16 - Radiculopathy, lumbar region Category: Medical (2) Myofascial low back pain: Code(s): M54.50 - Low back pain, unspecified Category: Medical (3) Strain of lumbar paraspinal muscle: Code(s): S39.012A - Strain of muscle, fascia and tendon of lower back, initial encounter Category: Medical Plan Marie is a very pleasant 48-year-old female who presented to the office today for follow-up, 1 month s/p Right L4-5 TFESI. Pain persists after TFESI. Will refer to neurosurgery for eval. Referral placed to Dr. Wolf at [facility] as neurospine at [facility] [place] does not take workers comp injuries. Continue methocarbamol 500 mg p.o. TID. Patient advised cautions for use. Refill sent today Continue Lidocaine patches topically. Apply to most painful area twice daily as needed. Refill sent today Work note provided today. All questions and concerns have been answered and patient agrees with the plan. Follow up after neurosurgery eval, sooner if needed. Orders: Referrals Neuro Spine Referral M54.16 - Radiculopathy, lumbar region Medications: Refilled methocarbamol No driving while taking this medication. Do no take with alcohol or other [employer] Depressants 500 mg PO TID PRN 90 tabs 1RF muscle spasm lidocaine 5% (Lidoderm) leave on most painful area for up to 12 hrs 1 patch topical DAILY PRN 30 ea 3RF pain MDD remove after 12 hours Coding Level of Care Code Est Pt Level 3 (70099) Diagnoses Lumbar radiculopathy M54.16 Myofascial low back pain M54.50 Strain of lumbar paraspinal muscle S39.012A
[2024-03-14 08:52] VITALS: BP 129/74; PULSE 67; O2SAT 99; BMI 32.1
[2024-03-14 08:54] VITALS: BMI 32.1
--- NOTE | 2024-03-14 08:54 | MHC.OFFVIS ---
Vital Signs 03/14/24 08:52 03/14/24 08:54 Height 5 ft 6 in Weight 90.265 kg BMI 32.1 32.1 BP 129/74 Blood Pressure Location Lt brachial Position Sitting Pulse 67 Pulse Source Pulse Oximeter Pulse Oximetry (%) 99 Oxygen Delivery Method Room Air Intake Visit Reasons: RIGHT L4, L5 KIN Intake Note: 7/10 pain rt lower back. 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 Allergies No Known Allergies [No Known Allergies*] Allergy (Verified 11/14/23 14:37) Medication List - Last Reconciled 03/14/24 by Linn Osorio acetaminophen (Tylenol Extra Strength) 500 mg PO Q6H PRN bisacodyl (Dulcolax (bisacodyl)) 20 mg (4 x 5 mg) PO ONCE 1 day bupropion HCl XL 150 mg PO QAM cyclobenzaprine 10 mg PO Q8H PRN diclofenac sodium 3% 1 appl topical BID ibuprofen 600 mg PO Q6H PRN levothyroxine 75 mcg PO DAILY lidocaine 5% (Lidoderm) 1 patch topical DAILY PRN MDD remove after 12 hours methocarbamol 500 mg PO TID PRN peg 3350-electrolytes 236-22.74-6.74 -5.86 gram 240 mL PO Q10M PFSH Medical History Physical exam Pre-op evaluation Trigger finger, left middle finger URI (upper respiratory infection) Muscle spasm Class 1 obesity with body mass index (BMI) of 31.0 to 31.9 in adult Vitamin D deficiency Vitamin A deficiency Panniculitis Intestinal malabsorption following gastrectomy Overweight Hypothyroidism Surgical History S/P laparoscopic sleeve gastrectomy History of total abdominal hysterectomy and bilateral salpingo-oophorectomy History of carpal tunnel release Family History Father No problems noted. Mother Hypertension Paternal Aunt Breast cancer Paternal Grandfather Hypertension Diabetes CVD (cardiovascular disease) Stroke Social History Household Members: Children Housing: House Do you presently have visiting nurse or other home services: No Alcohol intake: current Alcohol intake frequency: holidays/special occasions only Alcohol type: wine and hard liquor Patient Tobacco Use Status: Never used Tobacco e-Cigarette/Vaping Use: Never Used Second Hand Smoke Exposure: No Advance Directives Date on File: 04/04/22 service: No Current occupational status: employed Current occupational exposures/hazards: No Cognitive needs: No Hearing needs: No Vision needs: Yes Physical Exam Vital Signs: Last Vital Signs Pulse 67 03/14/24 08:52 BP 129/74 03/14/24 08:52 Pulse Ox 99 03/14/24 08:52 Oxygen Delivery Method Room Air 03/14/24 08:52 BMI result Body Mass Index 32.1 Quality Reporting (2020) Adult ([facility] 138/10/25/68) Smoking risk assessment performed?: Yes Patient Tobacco Use Status: Never used Tobacco Coding
== END 2024-03-14 09:24 | disposition home or self-care (01) ==
PROVIDERS: PCP Internal Medicine; Visit Provider Registered Nurse Emergency
DX: M54.16 Radiculopathy, lumbar region (principal); M54.50 Low back pain, unspecified; S39.012A Strain of muscle, fascia and tendon of lower back, initial encounter
CPT/HCPCS: 99213

== ENCOUNTER → 2024-03-14 08:48 | Outpatient (BNVA) | payer OTHER, SELFPAY | PROVIDERS: PCP Internal Medicine; Visit Provider Registered Nurse Emergency | DX: M54.16 Radiculopathy, lumbar region (principal); M54.50 Low back pain, unspecified; S39.012A Strain of muscle, fascia and tendon of lower back, initial encounter; Z79.899 Other long term (current) drug therapy; Z98.890 Other specified postprocedural states | CPT/HCPCS: 99212 ==

== ENCOUNTER 2024-04-22 10:10 | Outpatient (AMB) | payer OTHER, SELFPAY ==
--- NOTE | 2024-04-22 10:13 | MHC.OFFVIS ---
Vital Signs 04/22/24 10:14 Height 5 ft 6 in Weight 207 lb BMI 33.4 BP 130/72 Blood Pressure Location Lt brachial Position Sitting Pulse 79 Pulse Source Pulse Oximeter Pulse Oximetry (%) 97 Oxygen Delivery Method Room Air Intake Visit Reasons: Low Back Pain/Discuss Work Note Allergies No Known Allergies [No Known Allergies*] Allergy (Verified 04/22/24 10:15) Medication List - Last Reconciled 04/22/24 by Linn Osorio acetaminophen (Tylenol Extra Strength) 500 mg PO Q6H PRN bisacodyl (Dulcolax (bisacodyl)) 20 mg (4 x 5 mg) PO ONCE 1 day bupropion HCl XL 150 mg PO QAM cyclobenzaprine 10 mg PO Q8H PRN diclofenac sodium 3% 1 appl topical BID ibuprofen 600 mg PO Q6H PRN levothyroxine 75 mcg PO DAILY lidocaine 5% (Lidoderm) 1 patch topical DAILY PRN MDD remove after 12 hours methocarbamol 500 mg PO TID PRN peg 3350-electrolytes [id number] -5.86 gram 240 mL PO Q10M HPI Comments Details: Marie presents back to the office today for follow-up. She is due to return to work, she is requesting a note. Referral at last visit was placed for neuro spine, Dr. Wolf [facility]. She states they have not called her to schedule an appointment. She did not have the phone number so she did not attempt to call their office. Pain today is rated as a 9/10. Previously she was taking cyclobenzaprine with some improvement of her pain but it was making her very sleepy. Tried changing to methocarbamol but states this did not help her as much. She would like to restart cyclobenzaprine. Denies red flag symptoms including new loss of bowel, bladder or saddle anesthesia. Prior: Patient presents back to the office today for follow up, 1 month s/p right L4-5 TFESI performed 02/19/[address] Kang she reports some improvement in pain for first 3 days, then pain returned. pain today 7/10, right lower back with radiation down right leg to mid calf denies red flag symptoms including new loss of bowel, bladder or saddle anesthesia requesting refill on methocarbamol, is able to manage the pain with muscle relaxer and lidocaine patches Prior: Patient presents back to the office today for follow-up, review recent MRI MRI reviewed with patient, results as per below Patient continues with right lower back pain with radiation down her right leg. No improvement with physical therapy that she just completed. She reports some improvement with the topical diclofenac and muscle relaxers though the pain returns once the medication wears off. Denies red flag symptoms including new loss of bowel, bladder or saddle anesthesia. Prior: Marie is a very pleasant Senegalese-speaking female who presented to the office today for evaluation management of her lower back pain. Visit was completed today was Sen[place]e interpretation by Roula Dozier. Patient reports the pain started in September after she slipped on the ice, fell landing on her buttocks. She had x-rays completed and has been taking Flexeril without improvement of her pain. She has tried Tylenol without improvement of her pain. She is unable to tolerate oral nonsteroidal anti-inflammatory medications due to history of gastric surgery. She has been using icy hot with some improvement. She is doing home exercise program and physical therap, states it provide her minimal improvement of her pain. She is prescribed gabapentin by her primary care doctor which does not provide her any relief. Pain midline lower back with radiation down her right lateral thigh past the level of the knee. She reports the pain is worse at night and when she tries to get up in the morning. Heat helps some but otherwise she has not able to find a position of comfort or anything to improve her pain. Patient denies red flag symptoms including new loss of bowel, bladder or saddle anesthesia She denies history of back surgeries. She denies implantable devices Denies current use of anticoagulant [facility] Medical History Physical exam Pre-op evaluation Trigger finger, left middle finger URI (upper respiratory infection) Muscle spasm Class 1 obesity with body mass index (BMI) of 31.0 to 31.9 in adult Vitamin D deficiency Vitamin A deficiency Panniculitis Intestinal malabsorption following gastrectomy Overweight Hypothyroidism Surgical History S/P laparoscopic sleeve gastrectomy History of total abdominal hysterectomy and bilateral salpingo-oophorectomy History of carpal tunnel release Family History Father No problems noted. Mother Hypertension Paternal Aunt Breast cancer Paternal Grandfather Hypertension Diabetes CVD (cardiovascular disease) Stroke Social History Household Members: Children Housing: House Do you presently have visiting nurse or other home services: No Alcohol intake: current Alcohol intake frequency: holidays/special occasions only Alcohol type: wine and hard liquor Patient Tobacco Use Status: Never used Tobacco e-Cigarette/Vaping Use: Never Used Second Hand Smoke Exposure: No Advance Directives Date on File: 04/04/22 service: No Current occupational status: employed Current occupational exposures/hazards: No Cognitive needs: No Hearing needs: No Vision needs: Yes Review of Systems Const All systems reviewed & are unremarkable except as noted in HPI and below Physical Exam Vital Signs: Last Vital Signs Pulse 79 04/22/24 10:14 BP 130/72 04/22/24 10:14 Pulse Ox 97 04/22/24 10:14 Oxygen Delivery Method Room Air 04/22/24 10:14 BMI result Body Mass Index 33.4 General: awake, alert, oriented. Answers questions appropriately. Fully engaged in examination. Skin: warm, dry, intact HEENT: Normocephalic. Hearing intact. Cardiac: External chest normal in appearance. Respiratory: No cough, audible wheezing or stridor. Abdomen: without gross distension. MS: No obvious swelling or deformities. Able to transition from sit to stand unassisted. Ambulates with bilaterally normal heel strike and toe off SLR with dorsiflexion positive on the right Bilateral lower extremity strength 5/5, negative clonus, negative footdrop Tenderness over right lumbar vertebrae and paraspinal muscles nontender over PSIS Neurological: Oriented to person, place, time and situation. Thought process intact. No gait abnormalities appreciated. Psychiatric: Appropriate mood and affect. Good judgment and insight. Quality Reporting (2019) Adult ([facility] 138/10/25/68) Smoking risk assessment performed?: Yes Patient Tobacco Use Status: Never used Tobacco Results Reviewed Results Reviewed: 12/05/23 MR/MR lumbar spine wo con FINDINGS: Normal anatomic alignment. No suspicious marrow signal or focal osseous lesion. Right-sided predominant endplate marrow edema at L4-L5. Small L4 inferior endplate Schmorl's node. The vertebral body heights are maintained. The intervertebral discs are of normal height and signal. The conus medullaris terminates at the level of T12-L1. The distal spinal cord is normal in appearance. The cauda equina nerve roots appear normal. No significant abnormalities of the paraspinal musculature. Limited evaluation of the intra-abdominal structures without significant abnormalities. The abdominal aorta is of normal contour and caliber. SPINAL LEVELS: L1-L2: No significant spinal canal or neuroforaminal narrowing. Shallow disc bulge. L2-L3: Broad-based disc bulge, mild facet arthropathy, ligamentum flavum thickening. Mild central spinal canal stenosis. Mild bilateral neural foraminal narrowing L3-L4: Shallow right eccentric disc bulge. Facet arthropathy. Ligamentum flavum thickening. Mild central spinal canal stenosis. Right greater than left subarticular zone narrowing. Mild left and mild to moderate right neural foraminal narrowing L4-L5: Broad-based disc bulge. Facet arthropathy. Ligamentum flavum thickening. Moderate central spinal canal stenosis. Bilateral subarticular zone narrowing with likely impingement of the traversing L5 nerve roots. Mild bilateral neural foraminal narrowing L5-S1: Facet arthropathy with small joint effusions. Shallow disc bulge. No significant spinal canal stenosis. Mild bilateral neural foraminal narrowing. IMPRESSION: Multilevel lumbar spondylosis as described above, worst at L4-L5 where there is moderate spinal canal stenosis and bilateral subarticular zone narrowing with likely impingement of the traversing L5 nerve roots. Assessment & Plan Assessment & Plan (1) Lumbar radiculopathy: Code(s): M54.16 - Radiculopathy, lumbar region Category: Medical (2) Myofascial low back pain: Code(s): M54.50 - Low back pain, unspecified Category: Medical (3) Strain of lumbar paraspinal muscle: Code(s): S39.012A - Strain of muscle, fascia and tendon of lower back, initial encounter Category: Medical Plan Marie is a very pleasant 48-year-old female who presented to the office today for follow-up She suffering with lumbar radiculopathy, pain persists after Right L4-5 TFESI. Will send 2nd referral to neurosurgery for eval. Referral placed to Dr. Wolf at [facility] as [place] [facility] [place]. Discontinue methocarbamol. New prescription sent for cyclobenzaprine 10 mg p.o. q.8 hours as needed. Patient advised on cautions for use. Work note provided today. All questions and concerns have been answered and patient agrees with the plan. Follow up after neurosurgery eval, sooner if needed. Orders: Referrals Neurosurgery Referral M54.16 - Radiculopathy, lumbar region Medications: New cyclobenzaprine may cause drowsiness, no driving while taking this medication. 10 mg PO Q8H PRN 60 tabs 0RF muscle spasm Coding Level of Care Code Est Pt Level 3 (87788) Diagnoses Lumbar radiculopathy M54.16 Myofascial low back pain M54.50 Strain of lumbar paraspinal muscle S39.012A
[2024-04-22 10:14] VITALS: BP 130/72; PULSE 79; O2SAT 97; BMI 33.4
== END 2024-04-22 10:44 | disposition home or self-care (01) ==
PROVIDERS: PCP Internal Medicine; Visit Provider Registered Nurse Emergency
DX: M54.16 Radiculopathy, lumbar region (principal); M54.50 Low back pain, unspecified; S39.012A Strain of muscle, fascia and tendon of lower back, initial encounter
CPT/HCPCS: 99213

== ENCOUNTER → 2024-04-22 10:10 | Outpatient (BNVA) | payer OTHER, SELFPAY | PROVIDERS: PCP Internal Medicine; Visit Provider Registered Nurse Emergency | DX: M54.16 Radiculopathy, lumbar region (principal); S39.012A Strain of muscle, fascia and tendon of lower back, initial encounter | CPT/HCPCS: 99212 ==

== ENCOUNTER 2024-05-20 10:37 | Outpatient (AMB) | payer OTHER, SELFPAY ==
[2024-05-20 10:47] VITALS: BP 118/80; BMI 31.8
--- NOTE | 2024-05-20 10:47 | A.OFFPC_ITS ---
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 Required: No Accompanied by: Self / Same As Patient Allergies No Known Allergies [No Known Allergies*] Allergy (Verified 05/20/24 11:02) Medication List - Last Reconciled 05/20/24 by Danay Birmingham MD acetaminophen (Tylenol Extra Strength) 500 mg PO Q6H PRN cyclobenzaprine 10 mg PO Q8H PRN diclofenac sodium 3% 1 appl topical BID levothyroxine 75 mcg PO DAILY lidocaine 5% (Lidoderm) 1 patch topical DAILY PRN MDD remove after 12 hours methocarbamol 500 mg PO TID PRN Tobacco use date assessed: 05/20/24 Dental Screening Dental Screen Date: 05/20/24 Did you have a dental visit in the last 12 months?: No Did you have a dental problem in the last 6 months where you did not have access to dental care?: No Was dental information given to patient?: Patient has dentist HPI HPI Comments History of Present Illness Details This is a 48-year-old female with mild major depression that comes for her physical exam. She goes to counseling for her depression and I will start her on mirtazapine at bedtime due to insomnia. Mammogram done 2023. No need for Pap smear due to hysterectomy. Has not had a colonoscopy and will be refer through open access. She has lumbar radiculopathy and has been out of work and I did fill out paperwork today to leave her out of work due to not being able to bend, walking or standing for over 10 minutes. Will seen a neurosurgeon. She is obese with a BMI of 31.8 and was advised to do diet and exercise to reach BMI goal less than 30. [facility] Medical History (Updated 05/20/24 @ 11:10 by Danay Birmingham MD) Physical exam Pre-op evaluation Trigger finger, left middle finger URI (upper respiratory infection) Muscle spasm Class 1 obesity with body mass index (BMI) of 31.0 to 31.9 in adult Vitamin D deficiency Vitamin A deficiency Panniculitis Intestinal malabsorption following gastrectomy Overweight Hypothyroidism Surgical History S/P laparoscopic sleeve gastrectomy History of total abdominal hysterectomy and bilateral salpingo-oophorectomy History of carpal tunnel release Family History (Updated 05/20/24 @ 11:07 by Danay Birmingham MD) Father Thyroid disease Mother Hypertension Paternal Aunt Breast cancer Paternal Grandfather Hypertension Diabetes CVD (cardiovascular disease) Stroke Social History Household Members: Children Housing: House Do you presently have visiting nurse or other home services: No Alcohol intake: current Alcohol intake frequency: holidays/special occasions only Alcohol type: wine and hard liquor Patient Tobacco Use Status: Never used Tobacco e-Cigarette/Vaping Use: Never Used Second Hand Smoke Exposure: No Advance Directives Date on File: 04/04/22 service: No Current occupational status: unemployed Cognitive needs: No Hearing needs: No Vision needs: Yes Questionnaire PHQ-9 Over the last 2 weeks, how often have you been bothered by any of the following problems? 1. Little interest or pleasure in doing things: several days 2. Feeling down, depressed, or hopeless: several days 3. Trouble falling or staying asleep, or sleeping too much: more than half the days 4. Feeling tired or having little energy: several days 5. Poor appetite or overeating: several days 6. Feeling bad about yourself - or that you are a failure or have let yourself or your family down: not at all 7. Trouble concentrating on things, such as reading the newspaper or watching television: more than half the days 8. Moving or speaking so slowly that other people could have noticed. Or the opposite - being so fidgety or restless that you have been moving around a lot more than usual: several days 9. Thoughts that you would be better off or of hurting yourself in some way: not at all Total score: 9 Depression Screening Interpretation: Positive Depression Screening Follow-up: Existing condition, Community Mental Health Worker F/U and Follow-up Visit Requested Depression Screening Done: Yes 24313 - PHQ-9 Billing: Yes Source: Developed by Drs. Marquise Christy, Chelsey Gore, Rolando Espino and colleagues, with an educational jose alejandro from [employer]. Thrive Questionnaire Date Thrive assessed: 11/07/22 I am a: Patient What is your living situation today?: I have a steady place to live Within the past 12 months, did the food you bought not last and you didn't have the money to get more?: Sometimes True Within the past 12 months, did you worry whether your food would run out before you got money to buy more?: Sometimes True Do you have trouble paying for medicines?: Yes Do you have trouble getting transportation to medical appointments?: No Do you have trouble paying your heating and electricity bill?: No Do you have trouble taking care of your child, family member or friend?: No Do you have trouble with day-to-day activities such as bathing, preparing meals, shopping, managing finances, etc.?: No Are you currently unemployed and looking for a job?: No Are you interested in more education?: No Please select the resources that you would like help with: None Currently or been in a relationship where the following occur: I choose not to answer THRIVE Score: 2 AUDIT C Alcohol Use Questionnaire (AUDIT-C) 1. How often do you have a drink containing alcohol?: 2-4 times a month 2. How many drinks containing alcohol do you have on a typical day when you are drinking?: 1 or 2 3. How often do you have six or more drinks on one occasion?: Never Total Score: 2 Score Reviewed/Action Taken: No SEYMOUR-7 AMB Questionnaire SEYMOUR-7 Date SEYMOUR - 7 assessed: 05/20/24 Feeling nervous, anxious, or on edge: 2 = More than half the days Not being able to stop or control worryin = Several days Worrying too much about different things: 3 = Nearly every day Trouble relaxin = Several days Being so restless that it is hard to sit still: 0 = Not at all Becoming easily annoyed or irritable: 3 = Nearly every day Feeling afraid as if something awful might happen: 1 = Several days Total SEYMOUR-7 score (0-4 normal; 5-9 mild; 10-14 moderate; 15-21 severe): 11 Source: Developed by Drs. Marquise Christy, Chelsey Gore, Rolando Espino and colleagues, with an educational jose alejandro from [employer]. SEYMOUR-7 Assessment Billing SEYMOUR-7 Assessment Tool: SEYMOUR-7 Assessment 88881 Review of Systems Const All systems reviewed & are unremarkable except as noted in HPI and below Card Denies chest pain at rest, Denies chest pain with activity, Denies edema, Denies irregular heart rhythm, Denies claudication, Denies dyspnea, Denies dyspnea on exertion, Denies orthopnea, Denies paroxysmal nocturnal dyspnea and Denies slow heart rate Resp Denies cough, Denies dyspnea and Denies dyspnea on exertion GI Denies abdominal pain, Denies change in bowel habits, Denies excessive flatus, Denies nausea and Denies vomiting Denies urinary incontinence, Denies urinary hesitancy and Denies urinary urgency Musc Denies atrophy, Denies deformity and Denies limited range of motion Skin/Breast Denies bleeding lesions, Denies changing lesions and Denies rash Physical exam (Primary Care) Vital Signs: Last Vital Signs BP 118/80 05/20/24 10:47 BMI result Body Mass Index 31.8 Tobacco/Smoking Status: Tobacco use Status Tobacco use date assessed 05/20/24 05/20/24 10:55 Patient Tobacco Use Status Never used Tobacco 05/20/24 10:49 e-Cigarette/Vaping Use Never Used 05/20/24 10:49 PHQ-9: PHQ-9 Score PHQ-9: Total score 9 05/20/24 10:55 Depression Screening Interpretation: Positive Depression Screening Follow-up: Existing condition, Community Mental Health Worker F/U and Follow-up Visit Requested Thrive Assessment: Date of Thrive Assessment Date Thrive assessed 11/07/22 05/20/24 10:49 Currently or been in a relationship where the following occur: I choose not to answer [facility] Head: Yes normal to inspection, Yes normocephalic and Yes atraumatic Ears: external ears normal Eyes General: appearance normal, both eyes and all related structures Eyelids: Yes eyelids normal Conjunctivae: conjunctivae normal Neck Neck: Yes normal visual inspection and Yes supple Resp Effort & Inspection: normal respiratory effort Auscultation: clear to auscultation bilaterally Cardio Jugular venous distension: no JVD Rate: regular rate Rhythm: regular rhythm Heart sounds: S1 normal heart sound present and S2 normal heart sound present GI Inspection: Yes normal to inspection Palpation (GI): Soft to palpation and nontender Auscultation: normal bowel sounds Skin General skin exam: no rashes or lesions noted Neuro General: no focal motor deficits Extrem General: Yes full ROM Psych Appearance: grossly normal Assessment and Plan Assessment & Plan (1) Physical exam: Code(s): Z00.00 - Encounter for general adult medical examination without abnormal findings Plan: Repeat in a year. (2) Mild major depression: Code(s): F32.0 - Major depressive disorder, single episode, mild Plan: Continue counseling. Start mirtazapine at bedtime. Orders: Orders Lipid Panel Today E78.5 - Hyperlipidemia, unspecified, Z00.00 - Encounter for general adult medical examination without abnormal findings Vitamin D 25-OH (D2 and D3) Today E55.9 - Vitamin D deficiency, unspecified, Z00.00 - Encounter for general adult medical examination without abnormal findings Thyroid Stimulating Hormone Today E03.9 - Hypothyroidism, unspecified Comprehensive [place]. Panel Fast Today Z00.00 - Encounter for general adult medical examination without abnormal findings Vitamin A Today E50.9 - Vitamin A deficiency, unspecified Referrals Open Access Screening Colonoscopy Referral E03.9 - Hypothyroidism, unspecified, Z12.12 - Encounter for screening for malignant neoplasm of rectum Medications: New mirtazapine 15 mg PO BEDTIME 90 days 90 tabs 1RF F32.0 - Major depressive disorder, single episode, mild, G47.00 - Insomnia, unspecified Coding Level of Care Code Est Pt Prev Care 40-64y(23766) Diagnoses Physical exam Z00.00 Mild major depression F32.0 Additional Codes SEYMOUR-7 Assessment Billing - SEYMOUR-7 Assessment Tool: SEYMOUR-7 Assessment 37894 ([id number]) Time Spent (min) 35
== END 2024-05-20 11:20 | disposition home or self-care (01) ==
PROVIDERS: PCP Internal Medicine; Visit Provider Internal Medicine
DX: Z00.00 Encounter for general adult medical examination without abnormal findings (principal); F32.0 Major depressive disorder, single episode, mild

== ENCOUNTER → 2024-05-20 10:37 | Outpatient (BNVA) | payer OTHER, SELFPAY | PROVIDERS: PCP Internal Medicine; Visit Provider Internal Medicine | DX: Z00.00 Encounter for general adult medical examination without abnormal findings (principal); F32.0 Major depressive disorder, single episode, mild | CPT/HCPCS: 96127; 99396 ==

== ENCOUNTER 2024-06-20 14:10 | Outpatient (AMB) | payer OTHER, SELFPAY ==
[2024-06-20 14:17] VITALS: BP 107/62; PULSE 107; O2SAT 97; BMI 31.7
--- NOTE | 2024-06-20 14:17 | A.OFFVIS_ITS ---
Vital Signs 06/20/24 14:17 Height 5 ft 6 in Weight 196 lb 3.382 oz BMI 31.7 BP 107/62 Blood Pressure Location Rt brachial Position Sitting Pulse 107 H Pulse Source Pulse Oximeter Pulse Oximetry (%) 97 Oxygen Delivery Method Room Air Intake Visit Reasons: Low Back Pain/Discuss Work Note Allergies No Known Allergies [No Known Allergies*] Allergy (Verified 06/20/24 14:18) Medication List - Last Reconciled 06/20/24 by Linn Osorio acetaminophen (Tylenol Extra Strength) 500 mg PO Q6H PRN cyclobenzaprine 10 mg PO Q8H PRN diclofenac sodium 3% 1 appl topical BID levothyroxine 75 mcg PO DAILY lidocaine 5% (Lidoderm) 1 patch topical DAILY PRN MDD remove after 12 hours methocarbamol 500 mg PO TID PRN mirtazapine 15 mg PO BEDTIME 90 days semaglutide (weight loss) (Wegovy) 0.5 mg (0.5 mL) subcut QWEEK 4 weeks HPI Comments Details: Marie presents back to the office today for follow-up lower back pain Continues with right lower back pain with radiation down the right leg Endorses burning pain down the right leg to the calf Has been taking muscle relaxers and Tylenol with minimal improvement. Requesting work note, she has appointment with Neurosurgery 07/24/24 Prior: Marie presents back to the office today for follow-up. She is due to return to work, she is requesting a note. Referral at last visit was placed for neuro spine, Dr. [facility]. She states they have not called her to schedule an appointment. She did not have the phone number so she did not attempt to call their office. Pain today is rated as a 9/10. Previously she was taking cyclobenzaprine with some improvement of her pain but it was making her very sleepy. Tried changing to methocarbamol but states this did not help her as much. She would like to restart cyclobenzaprine. Denies red flag symptoms including new loss of bowel, bladder or saddle anesthesia. Prior: Patient presents back to the office today for follow up, 1 month s/p right L4-5 TFESI performed 02/19/[address] Kang she reports some improvement in pain for first 3 days, then pain returned. pain today 7/10, right lower back with radiation down right leg to mid calf denies red flag symptoms including new loss of bowel, bladder or saddle anesthesia requesting refill on methocarbamol, is able to manage the pain with muscle relaxer and lidocaine patches Prior: Patient presents back to the office today for follow-up, review recent MRI MRI reviewed with patient, results as per below Patient continues with right lower back pain with radiation down her right leg. No improvement with physical therapy that she just completed. She reports some improvement with the topical diclofenac and muscle relaxers though the pain returns once the medication wears off. Denies red flag symptoms including new loss of bowel, bladder or saddle anesthesia. Prior: Marie is a very pleasant [place] Islander-speaking female who presented to the office today for evaluation management of her lower back pain. Visit was completed today was [place] interpretation by Roula Dozier. Patient reports the pain started in September after she slipped on the ice, fell landing on her buttocks. She had x-rays completed and has been taking Flexeril without improvement of her pain. She has tried Tylenol without improvement of her pain. She is unable to tolerate oral nonsteroidal anti-inflammatory medications due to history of gastric surgery. She has been using icy hot with some improvement. She is doing home exercise program and physical therap, states it provide her minimal improvement of her pain. She is prescribed gabapentin by her primary care doctor which does not provide her any relief. Pain midline lower back with radiation down her right lateral thigh past the level of the knee. She reports the pain is worse at night and when she tries to get up in the morning. Heat helps some but otherwise she has not able to find a position of comfort or anything to improve her pain. Patient denies red flag symptoms including new loss of bowel, bladder or saddle anesthesia She denies history of back surgeries. She denies implantable devices Denies current use of anticoagulant [facility] Medical History Physical exam Pre-op evaluation Trigger finger, left middle finger URI (upper respiratory infection) Muscle spasm Class 1 obesity with body mass index (BMI) of 31.0 to 31.9 in adult Vitamin D deficiency Vitamin A deficiency Panniculitis Intestinal malabsorption following gastrectomy Overweight Hypothyroidism Surgical History S/P laparoscopic sleeve gastrectomy History of total abdominal hysterectomy and bilateral salpingo-oophorectomy History of carpal tunnel release Family History (Updated 05/20/24 @ 11:07 by Danay Birmingham MD) Father Thyroid disease Mother Hypertension Paternal Aunt Breast cancer Paternal Grandfather Hypertension Diabetes CVD (cardiovascular disease) Stroke Social History Household Members: Children Housing: House Do you presently have visiting nurse or other home services: No Alcohol intake: current Alcohol intake frequency: holidays/special occasions only Alcohol type: wine and hard liquor Patient Tobacco Use Status: Never used Tobacco e-Cigarette/Vaping Use: Never Used Second Hand Smoke Exposure: No Advance Directives Date on File: 04/04/22 service: No Current occupational status: unemployed Cognitive needs: No Hearing needs: No Vision needs: Yes Review of Systems Const All systems reviewed & are unremarkable except as noted in HPI and below Physical Exam Vital Signs: Last Vital Signs Pulse 107 H 06/20/24 14:17 BP 107/62 06/20/24 14:17 Pulse Ox 97 06/20/24 14:17 Oxygen Delivery Method Room Air 06/20/24 14:17 BMI result Body Mass Index 31.7 General: awake, alert, oriented. Answers questions appropriately. Fully engaged in examination. Skin: warm, dry, intact HEENT: Normocephalic. Hearing intact. Cardiac: External chest normal in appearance. Respiratory: No cough, audible wheezing or stridor. Abdomen: without gross distension. MS: No obvious swelling or deformities. Able to transition from sit to stand unassisted. Ambulates with bilaterally normal heel strike and toe off SLR with dorsiflexion positive on the right Bilateral lower extremity strength 5/5, negative clonus, negative footdrop Neurological: Oriented to person, place, time and situation. Thought process intact. Ambulates with antalgic gait Psychiatric: Appropriate mood and affect. Good judgment and insight. Quality Reporting (2020) Adult ([facility] 138/10/25/68) Smoking risk assessment performed?: Yes Patient Tobacco Use Status: Never used Tobacco Results Reviewed Results Reviewed: 12/05/23 MR/MR lumbar spine wo con FINDINGS: Normal anatomic alignment. No suspicious marrow signal or focal osseous lesion. Right-sided predominant endplate marrow edema at L4-L5. Small L4 inferior endplate Schmorl's node. The vertebral body heights are maintained. The intervertebral discs are of normal height and signal. The conus medullaris terminates at the level of T12-L1. The distal spinal cord is normal in appearance. The cauda equina nerve roots appear normal. No significant abnormalities of the paraspinal musculature. Limited evaluation of the intra-abdominal structures without significant abnormalities. The abdominal aorta is of normal contour and caliber. SPINAL LEVELS: L1-L2: No significant spinal canal or neuroforaminal narrowing. Shallow disc bulge. L2-L3: Broad-based disc bulge, mild facet arthropathy, ligamentum flavum thickening. Mild central spinal canal stenosis. Mild bilateral neural foraminal narrowing L3-L4: Shallow right eccentric disc bulge. Facet arthropathy. Ligamentum flavum thickening. Mild central spinal canal stenosis. Right greater than left subarticular zone narrowing. Mild left and mild to moderate right neural foraminal narrowing L4-L5: Broad-based disc bulge. Facet arthropathy. Ligamentum flavum thickening. Moderate central spinal canal stenosis. Bilateral subarticular zone narrowing with likely impingement of the traversing L5 nerve roots. Mild bilateral neural foraminal narrowing L5-S1: Facet arthropathy with small joint effusions. Shallow disc bulge. No significant spinal canal stenosis. Mild bilateral neural foraminal narrowing. IMPRESSION: Multilevel lumbar spondylosis as described above, worst at L4-L5 where there is moderate spinal canal stenosis and bilateral subarticular zone narrowing with likely impingement of the traversing L5 nerve roots. Assessment & Plan Assessment & Plan (1) Lumbar radiculopathy: Code(s): M54.16 - Radiculopathy, lumbar region Category: Medical (2) Myofascial low back pain: Code(s): M54.50 - Low back pain, unspecified Category: Medical (3) Strain of lumbar paraspinal muscle: Code(s): S39.012A - Strain of muscle, fascia and tendon of lower back, initial encounter Category: Medical Plan Marie is a very pleasant 48-year-old female who presented to the office today for follow-up Suffering with right lumbar radiculopathy. Continue with plan for neurosurgical evaluation 07/24/2024 Order placed for functional capacity eval, will be faxed to [facility] Physical therapy. Refill of methocarbamol 500 mg p.o. 3 times daily sent per patient request New prescription for gabapentin 100 mg p.o. t.i.d.. Patient advised on cautions for use. Work note provided All questions and concerns have been answered and patient agrees with the plan. Follow up after neurosurgery eval, sooner if needed. Orders: Orders Functional Capacity Exam Today M54.16 - Radiculopathy, lumbar region Medications: New gabapentin 100 mg PO TID 90 caps 3RF Coding Level of Care Code Est Pt Level 3 (36112) Complex EM visit Add On G2211 Diagnoses Lumbar radiculopathy M54.16 Myofascial low back pain M54.50 Strain of lumbar paraspinal muscle S39.012A
== END 2024-06-20 14:39 | disposition home or self-care (01) ==
PROVIDERS: PCP Internal Medicine; Visit Provider Registered Nurse Emergency
DX: M54.16 Radiculopathy, lumbar region (principal); M54.50 Low back pain, unspecified; S39.012A Strain of muscle, fascia and tendon of lower back, initial encounter
CPT/HCPCS: 99213; G2211

== ENCOUNTER → 2024-06-20 14:10 | Outpatient (BNVA) | payer OTHER, SELFPAY | PROVIDERS: PCP Internal Medicine; Visit Provider Registered Nurse Emergency | DX: S39.012D Strain of muscle, fascia and tendon of lower back, subsequent encounter (principal); M54.16 Radiculopathy, lumbar region | CPT/HCPCS: 99212 ==

== ENCOUNTER 2024-07-15 08:21 | Outpatient (REF) | payer OTHER, SELFPAY ==
[2024-07-15 09:59] LABS: Alanine Aminotransferase 18 U/L (0-31); Albumin Level 4.2 g/dL (3.5-5.0); Alkaline Phosphatase 83 U/L (39-117); Anion Gap 10 (12-20); Aspartate Amino Transferase 22 U/L (5-31); Bilirubin Total 0.4 mg/dL (0.0-1.0); Blood Urea Nitrogen 12 mg/dL (9-16); Calcium 9.6 mg/dL (8.4-10.2); Carbon Dioxide 29 mmol/L (22-29); Chloride 108 mmol/L (96-108); Cholesterol 190 mg/dL (<200); Estimated Glomerular Filt Rate > 60; Glucose Fasting 92 mg/dL (60-99); HDL Cholesterol 49 mg/dL (>40); LDL Cholesterol Calculated 128 mg/dL (<100); Potassium 3.9 mmol/L (3.3-5.1); Sodium 143 mmol/L (135-145); Total Protein 7.1 g/dL (6.5-8.0); Triglycerides 66 mg/dL (<150)
[2024-07-15 10:07] LABS: Thyroid Stimulating Hormone 1.58 uIU/mL (0.32-4.0)
[2024-07-19 17:19] LABS: Vitamin D 25-OH, D2 <4 ng/mL; Vitamin D 25-OH, D3 23 ng/mL; Vitamin D 25-OH, Total 23 ng/mL (30-100)
[2024-07-20 10:13] LABS: Vitamin A 36 mcg/dL (38-98)
== END 2024-07-15 08:22 | disposition home or self-care (01) ==
LOC: HO.LAB 08:21
PROVIDERS: PCP Internal Medicine; Visit Provider Internal Medicine
DX: Z00.00 Encounter for general adult medical examination without abnormal findings (principal); E55.9 Vitamin D deficiency, unspecified; E03.9 Hypothyroidism, unspecified; E78.5 Hyperlipidemia, unspecified; E50.9 Vitamin A deficiency, unspecified
CPT/HCPCS: 36415; 80053; 80061; 82306; 84443; 84590

== ENCOUNTER 2024-07-30 13:01 | Outpatient (AMB) | payer OTHER, SELFPAY ==
--- NOTE | 2024-07-30 13:21 | MHC.OFFVIS ---
Vital Signs 07/30/24 13:22 Height 5 ft 6 in Weight 189 lb BMI 30.5 BP 121/68 Blood Pressure Location Lt brachial Position Sitting Respiration 17 Pulse 76 Pulse Source Pulse Oximeter Pulse Oximetry (%) 98 Oxygen Delivery Method Room Air Intake Visit Reasons: Low back pain/Work note expiring Photographic Aide Required: Yes Photographic Aide Services: Photographic Aide Offered & Declined Accompanied by: Daughter Allergies No Known Allergies [No Known Allergies*] Allergy (Verified 06/20/24 14:18) HPI Comments Details: Patient presents back to the office today for follow-up. Pain today is rated as a 9/10, right lower back with radiation down the right leg. Neurosurgery appointment was rescheduled until August 22 as the neurosurgeon is out of the office She is requesting updated work note Prior: Marie presents back to the office today for follow-up lower back pain Continues with right lower back pain with radiation down the right leg Endorses burning pain down the right leg to the calf Has been taking muscle relaxers and Tylenol with minimal improvement. Requesting work note, she has appointment with Neurosurgery 07/24/24 Prior: Marie presents back to the office today for follow-up. She is due to return to work, she is requesting a note. Referral at last visit was placed for neuro spine, Dr. [facility]. She states they have not called her to schedule an appointment. She did not have the phone number so she did not attempt to call their office. Pain today is rated as a 9/10. Previously she was taking cyclobenzaprine with some improvement of her pain but it was making her very sleepy. Tried changing to methocarbamol but states this did not help her as much. She would like to restart cyclobenzaprine. Denies red flag symptoms including new loss of bowel, bladder or saddle anesthesia. Prior: Patient presents back to the office today for follow up, 1 month s/p right L4-5 TFESI performed 02/19/[address] Kang she reports some improvement in pain for first 3 days, then pain returned. pain today 7/10, right lower back with radiation down right leg to mid calf denies red flag symptoms including new loss of bowel, bladder or saddle anesthesia requesting refill on methocarbamol, is able to manage the pain with muscle relaxer and lidocaine patches Prior: Patient presents back to the office today for follow-up, review recent MRI MRI reviewed with patient, results as per below Patient continues with right lower back pain with radiation down her right leg. No improvement with physical therapy that she just completed. She reports some improvement with the topical diclofenac and muscle relaxers though the pain returns once the medication wears off. Denies red flag symptoms including new loss of bowel, bladder or saddle anesthesia. Prior: Marie is a very pleasant [place]-speaking female who presented to the office today for evaluation management of her lower back pain. Visit was completed today was [place] interpretation by Roula Dozier. Patient reports the pain started in September after she slipped on the ice, fell landing on her buttocks. She had x-rays completed and has been taking Flexeril without improvement of her pain. She has tried Tylenol without improvement of her pain. She is unable to tolerate oral nonsteroidal anti-inflammatory medications due to history of gastric surgery. She has been using icy hot with some improvement. She is doing home exercise program and physical therap, states it provide her minimal improvement of her pain. She is prescribed gabapentin by her primary care doctor which does not provide her any relief. Pain midline lower back with radiation down her right lateral thigh past the level of the knee. She reports the pain is worse at night and when she tries to get up in the morning. Heat helps some but otherwise she has not able to find a position of comfort or anything to improve her pain. Patient denies red flag symptoms including new loss of bowel, bladder or saddle anesthesia She denies history of back surgeries. She denies implantable devices Denies current use of anticoagulant [facility] Medical History Physical exam Pre-op evaluation Trigger finger, left middle finger URI (upper respiratory infection) Muscle spasm Class 1 obesity with body mass index (BMI) of 31.0 to 31.9 in adult Vitamin D deficiency Vitamin A deficiency Panniculitis Intestinal malabsorption following gastrectomy Overweight Hypothyroidism Surgical History S/P laparoscopic sleeve gastrectomy History of total abdominal hysterectomy and bilateral salpingo-oophorectomy History of carpal tunnel release Family History (Updated 05/20/24 @ 11:07 by Danay Birmingham MD) Father Thyroid disease Mother Hypertension Paternal Aunt Breast cancer Paternal Grandfather Hypertension Diabetes CVD (cardiovascular disease) Stroke Social History Household Members: Children Housing: House Do you presently have visiting nurse or other home services: No Alcohol intake: current Alcohol intake frequency: holidays/special occasions only Alcohol type: wine and hard liquor Patient Tobacco Use Status: Never used Tobacco e-Cigarette/Vaping Use: Never Used Second Hand Smoke Exposure: No Advance Directives Date on File: 04/04/22 service: No Current occupational status: unemployed Cognitive needs: No Hearing needs: No Vision needs: Yes Review of Systems Const All systems reviewed & are unremarkable except as noted in HPI and below Physical Exam Vital Signs: Last Vital Signs Pulse 76 07/30/24 13:22 Resp 17 07/30/24 13:22 BP 121/68 07/30/24 13:22 Pulse Ox 98 07/30/24 13:22 Oxygen Delivery Method Room Air 07/30/24 13:22 BMI result Body Mass Index 30.5 General: awake, alert, oriented. Answers questions appropriately. Fully engaged in examination. Skin: warm, dry, intact HEENT: Normocephalic. Hearing intact. Cardiac: External chest normal in appearance. Respiratory: No cough, audible wheezing or stridor. Abdomen: without gross distension. MS: No obvious swelling or deformities. Neurological: Oriented to person, place, time and situation. Thought process intact. Ambulates with antalgic gait Psychiatric: Appropriate mood and affect. Good judgment and insight. Quality Reporting (2019) Adult ([facility] 138/10/25/68) Smoking risk assessment performed?: Yes Patient Tobacco Use Status: Never used Tobacco Results Reviewed Results Reviewed: 12/05/23 MR/MR lumbar spine wo con FINDINGS: Normal anatomic alignment. No suspicious marrow signal or focal osseous lesion. Right-sided predominant endplate marrow edema at L4-L5. Small L4 inferior endplate Schmorl's node. The vertebral body heights are maintained. The intervertebral discs are of normal height and signal. The conus medullaris terminates at the level of T12-L1. The distal spinal cord is normal in appearance. The cauda equina nerve roots appear normal. No significant abnormalities of the paraspinal musculature. Limited evaluation of the intra-abdominal structures without significant abnormalities. The abdominal aorta is of normal contour and caliber. SPINAL LEVELS: L1-L2: No significant spinal canal or neuroforaminal narrowing. Shallow disc bulge. L2-L3: Broad-based disc bulge, mild facet arthropathy, ligamentum flavum thickening. Mild central spinal canal stenosis. Mild bilateral neural foraminal narrowing L3-L4: Shallow right eccentric disc bulge. Facet arthropathy. Ligamentum flavum thickening. Mild central spinal canal stenosis. Right greater than left subarticular zone narrowing. Mild left and mild to moderate right neural foraminal narrowing L4-L5: Broad-based disc bulge. Facet arthropathy. Ligamentum flavum thickening. Moderate central spinal canal stenosis. Bilateral subarticular zone narrowing with likely impingement of the traversing L5 nerve roots. Mild bilateral neural foraminal narrowing L5-S1: Facet arthropathy with small joint effusions. Shallow disc bulge. No significant spinal canal stenosis. Mild bilateral neural foraminal narrowing. IMPRESSION: Multilevel lumbar spondylosis as described above, worst at L4-L5 where there is moderate spinal canal stenosis and bilateral subarticular zone narrowing with likely impingement of the traversing L5 nerve roots. Assessment & Plan Assessment & Plan (1) Lumbar radiculopathy: Code(s): M54.16 - Radiculopathy, lumbar region Category: Medical (2) Myofascial low back pain: Code(s): M54.50 - Low back pain, unspecified Category: Medical (3) Strain of lumbar paraspinal muscle: Code(s): S39.012A - Strain of muscle, fascia and tendon of lower back, initial encounter Category: Medical Plan Marie presented back to the office today for follow-up Follow-up with Neurosurgery 08/22/2024 as planned Work note provided All questions and concerns have been answered and patient agrees with the plan. Follow up after neurosurgery eval, sooner if needed. Coding Level of Care Code Est Pt Level 3 (10685) Complex EM visit Add On G2211 Diagnoses Lumbar radiculopathy M54.16 Myofascial low back pain M54.50 Strain of lumbar paraspinal muscle S39.012A
[2024-07-30 13:22] VITALS: BP 121/68; PULSE 76; RESP 17; O2SAT 98; BMI 30.5
== END 2024-07-30 14:03 | disposition home or self-care (01) ==
PROVIDERS: PCP Internal Medicine; Visit Provider Registered Nurse Emergency
DX: M54.16 Radiculopathy, lumbar region (principal); M54.50 Low back pain, unspecified; S39.012A Strain of muscle, fascia and tendon of lower back, initial encounter
CPT/HCPCS: 99213; G2211

== ENCOUNTER → 2024-07-30 13:01 | Outpatient (BNVA) | payer OTHER, SELFPAY | PROVIDERS: PCP Internal Medicine; Visit Provider Registered Nurse Emergency | DX: M54.16 Radiculopathy, lumbar region (principal); M54.50 Low back pain, unspecified; S39.012D Strain of muscle, fascia and tendon of lower back, subsequent encounter | CPT/HCPCS: 99212 ==

== ENCOUNTER 2024-08-28 13:06 | Outpatient (AMB) | payer OTHER, SELFPAY ==
[2024-08-28 13:25] VITALS: BP 130/93; PULSE 80; O2SAT 98; BMI 30.8
--- NOTE | 2024-08-28 13:25 | A.OFFVIS_ITS ---
Vital Signs 08/28/24 13:25 Height 5 ft 6 in Weight 191 lb BMI 30.8 BP 130/93 H Blood Pressure Location Lt brachial Position Sitting Pulse 80 Pulse Source Pulse Oximeter Pulse Oximetry (%) 98 Oxygen Delivery Method Room Air Intake Visit Reasons: FU before work return Allergies No Known Allergies [No Known Allergies*] Allergy (Verified 08/28/24 13:26) Medication List - Last Reconciled 08/28/24 by Arti Dozier, HOME HEALTH CAREGIVER acetaminophen (Tylenol Extra Strength) 500 mg PO Q6H PRN diclofenac sodium 3% 1 appl topical BID gabapentin 100 mg PO TID levothyroxine 75 mcg PO DAILY lidocaine 5% (Lidoderm) 1 patch topical DAILY PRN MDD remove after 12 hours methocarbamol 500 mg PO TID PRN mirtazapine 15 mg PO BEDTIME 90 days semaglutide (weight loss) (Wegovy) 1 mg (0.5 mL) subcut Q7D 4 weeks semaglutide (weight loss) (Wegovy) 1.7 mg (0.75 mL) subcut QWEEK 4 weeks tirzepatide (weight loss) (Zepbound) 2.5 mg (0.5 mL) subcut QWEEK 4 weeks HPI Comments Details: Marie presents back to the office today for follow-up. She is accompanied by her daughter who assists with Northern Irish translation. Recently evaluated by Neurosurgery at [facility] Records from that visit were received and have been reviewed. He is requesting a repeat transforaminal epidural steroid injection prior to proceeding with surgical intervention She continues with muscle relaxers and Tylenol as needed. Neurosurgery provided her with a work note, return to work as long as it is sedentary Pain today is rated as a 7/10 right lower back with radiation down the right leg Prior: Patient presents back to the office today for follow-up. Pain today is rated as a 9/10, right lower back with radiation down the right leg. Neurosurgery appointment was rescheduled until August 22 as the neurosurgeon is out of the office She is requesting updated work note Prior: Marie presents back to the office today for follow-up lower back pain Continues with right lower back pain with radiation down the right leg Endorses burning pain down the right leg to the calf Has been taking muscle relaxers and Tylenol with minimal improvement. Requesting work note, she has appointment with Neurosurgery 07/24/24 Prior: Marie presents back to the office today for follow-up. She is due to return to work, she is requesting a note. Referral at last visit was placed for neuro spine, Dr. Wolf [facility]. She states they have not called her to schedule an appointment. She did not have the phone number so she did not attempt to call their office. Pain today is rated as a 9/10. Previously she was taking cyclobenzaprine with some improvement of her pain but it was making her very sleepy. Tried changing to methocarbamol but states this did not help her as much. She would like to restart cyclobenzaprine. Denies red flag symptoms including new loss of bowel, bladder or saddle anesthesia. Prior: Patient presents back to the office today for follow up, 1 month s/p right L4-5 TFESI performed 02/19/[address] Kang she reports some improvement in pain for first 3 days, then pain returned. pain today 7/10, right lower back with radiation down right leg to mid calf denies red flag symptoms including new loss of bowel, bladder or saddle anesthesia requesting refill on methocarbamol, is able to manage the pain with muscle relaxer and lidocaine patches Prior: Patient presents back to the office today for follow-up, review recent MRI MRI reviewed with patient, results as per below Patient continues with right lower back pain with radiation down her right leg. No improvement with physical therapy that she just completed. She reports some improvement with the topical diclofenac and muscle relaxers though the pain returns once the medication wears off. Denies red flag symptoms including new loss of bowel, bladder or saddle anesthesia. Prior: Marie is a very pleasant Northern Irish-speaking female who presented to the office today for evaluation management of her lower back pain. Visit was completed today was Northern Irish interpretation by Roula Dozier. Patient reports the pain started in September after she slipped on the ice, fell landing on her buttocks. She had x-rays completed and has been taking Flexeril without improvement of her pain. She has tried Tylenol without improvement of her pain. She is unable to tolerate oral nonsteroidal anti-inflammatory medications due to history of gastric surgery. She has been using icy hot with some improvement. She is doing home exercise program and physical therap, states it provide her minimal improvement of her pain. She is prescribed gabapentin by her primary care doctor which does not provide her any relief. Pain midline lower back with radiation down her right lateral thigh past the level of the knee. She reports the pain is worse at night and when she tries to get up in the morning. Heat helps some but otherwise she has not able to find a position of comfort or anything to improve her pain. Patient denies red flag symptoms including new loss of bowel, bladder or saddle anesthesia She denies history of back surgeries. She denies implantable devices Denies current use of anticoagulant [facility] Medical History Physical exam Pre-op evaluation Trigger finger, left middle finger URI (upper respiratory infection) Muscle spasm Class 1 obesity with body mass index (BMI) of 31.0 to 31.9 in adult Vitamin D deficiency Vitamin A deficiency Panniculitis Intestinal malabsorption following gastrectomy Overweight Hypothyroidism Surgical History S/P laparoscopic sleeve gastrectomy History of total abdominal hysterectomy and bilateral salpingo-oophorectomy History of carpal tunnel release Family History (Updated 05/20/24 @ 11:07 by Danay Birmingham MD) Father Thyroid disease Mother Hypertension Paternal Aunt Breast cancer Paternal Grandfather Hypertension Diabetes CVD (cardiovascular disease) Stroke Social History Household Members: Children Housing: House Do you presently have visiting nurse or other home services: No Alcohol intake: current Alcohol intake frequency: holidays/special occasions only Alcohol type: wine and hard liquor Patient Tobacco Use Status: Never used Tobacco e-Cigarette/Vaping Use: Never Used Second Hand Smoke Exposure: No Advance Directives Date on File: 04/04/22 service: No Current occupational status: unemployed Cognitive needs: No Hearing needs: No Vision needs: Yes Review of Systems Const All systems reviewed & are unremarkable except as noted in HPI and below Physical Exam Vital Signs: Last Vital Signs Pulse 80 08/28/24 13:25 BP 130/93 H 08/28/24 13:25 Pulse Ox 98 08/28/24 13:25 Oxygen Delivery Method Room Air 08/28/24 13:25 BMI result Body Mass Index 30.8 General: awake, alert, oriented. Answers questions appropriately. Fully engaged in examination. Skin: warm, dry, intact HEENT: Normocephalic. Hearing intact. Cardiac: External chest normal in appearance. Respiratory: No cough, audible wheezing or stridor. Abdomen: without gross distension. MS: No obvious swelling or deformities. Tender to palpation right lumbar paraspinal muscles and right lumbar musculature SLR positive on the right Bilateral lower extremity strength 5/5 Nontender over PSIS bilaterally Valsalva negative Neurological: Oriented to person, place, time and situation. Thought process intact. Ambulates with antalgic gait Psychiatric: Appropriate mood and affect. Good judgment and insight. Quality Reporting (2019) Adult ([facility] 138/10/25/68) Smoking risk assessment performed?: Yes Patient Tobacco Use Status: Never used Tobacco Results Reviewed Results Reviewed: 12/05/23 MR/MR lumbar spine wo con FINDINGS: Normal anatomic alignment. No suspicious marrow signal or focal osseous lesion. Right-sided predominant endplate marrow edema at L4-L5. Small L4 inferior endplate Schmorl's node. The vertebral body heights are maintained. The intervertebral discs are of normal height and signal. The conus medullaris terminates at the level of T12-L1. The distal spinal cord is normal in appearance. The cauda equina nerve roots appear normal. No significant abnormalities of the paraspinal musculature. Limited evaluation of the intra-abdominal structures without significant abnormalities. The abdominal aorta is of normal contour and caliber. SPINAL LEVELS: L1-L2: No significant spinal canal or neuroforaminal narrowing. Shallow disc bulge. L2-L3: Broad-based disc bulge, mild facet arthropathy, ligamentum flavum thickening. Mild central spinal canal stenosis. Mild bilateral neural foraminal narrowing L3-L4: Shallow right eccentric disc bulge. Facet arthropathy. Ligamentum flavum thickening. Mild central spinal canal stenosis. Right greater than left subarticular zone narrowing. Mild left and mild to moderate right neural foraminal narrowing L4-L5: Broad-based disc bulge. Facet arthropathy. Ligamentum flavum thickening. Moderate central spinal canal stenosis. Bilateral subarticular zone narrowing with likely impingement of the traversing L5 nerve roots. Mild bilateral neural foraminal narrowing L5-S1: Facet arthropathy with small joint effusions. Shallow disc bulge. No significant spinal canal stenosis. Mild bilateral neural foraminal narrowing. IMPRESSION: Multilevel lumbar spondylosis as described above, worst at L4-L5 where there is moderate spinal canal stenosis and bilateral subarticular zone narrowing with likely impingement of the traversing L5 nerve roots. Assessment & Plan Assessment & Plan (1) Lumbar radiculopathy: Code(s): M54.16 - Radiculopathy, lumbar region Category: Medical (2) Myofascial low back pain: Code(s): M54.50 - Low back pain, unspecified Category: Medical (3) Strain of lumbar paraspinal muscle: Code(s): S39.012A - Strain of muscle, fascia and tendon of lower back, initial encounter Category: Medical Plan Marie presented to the office today for follow-up right lower back pain Per neurosurgery request will repeat fluoroscopy guided Right L4-5 TFEI with local anesthetic. Continue with cyclobenzaprine 10 mg p.o. q.8 hours as needed. Patient advised on cautions for use. All questions and concerns have been answered and patient agrees with the plan. Follow up after injection, sooner if needed. Coding Level of Care Code Est Pt Level 3 (08802) Complex EM visit Add On G2211 Diagnoses Lumbar radiculopathy M54.16 Myofascial low back pain M54.50 Strain of lumbar paraspinal muscle S39.012A
== END 2024-08-28 13:35 | disposition home or self-care (01) ==
PROVIDERS: PCP Internal Medicine; Visit Provider Registered Nurse Emergency
DX: M54.16 Radiculopathy, lumbar region (principal); M54.50 Low back pain, unspecified; S39.012A Strain of muscle, fascia and tendon of lower back, initial encounter
CPT/HCPCS: 99213; G2211

== ENCOUNTER → 2024-08-28 13:06 | Outpatient (BNVA) | payer OTHER, SELFPAY | PROVIDERS: PCP Internal Medicine; Visit Provider Registered Nurse Emergency | DX: M54.16 Radiculopathy, lumbar region (principal); S39.012D Strain of muscle, fascia and tendon of lower back, subsequent encounter; X58.XXXD Exposure to other specified factors, subsequent encounter | CPT/HCPCS: 99212 ==

== ENCOUNTER 2024-11-04 06:12 | Outpatient (REF) | payer OTHER, SELFPAY ==
--- NOTE | ~2024-11-04 | FL_ITS ---
EXAMINATION: FLUOROSCOPY GUIDANCE FOR NEEDLE PLACEMENT CLINICAL INFORMATION: M54.16 - Radiculopathy, lumbar region COMPARISON: None available. TECHNIQUE: Intraoperative guidance was provided to the referring physician. There are 2 digital images obtained . The tutelage images. No radiologist was present. FINDINGS/ FL/FL guidance in treatment room IMPRESSION: On the 2 digital images obtained there is needle positioned inferior to right L4 pedicle with contrast opacifying the extra neural foraminal soft tissues. No gross bony abnormality seen except for mild spondylosis L2-3, L3-for L4-5 disc levels. FLUOROSCOPY TIME: 0.2 minutes DOSE AREA PRODUCT: 0.0440 uGy-m2 (microgray-meter squared) Electronically signed by: Bijan Huddleston MD 11/04/2024 10:25 AM [facility] [place]
== END 2024-11-04 06:13 | disposition home or self-care (01) ==
LOC: CF 06:12
PROVIDERS: Visit Provider Anesthesiology
DX: M54.16 Radiculopathy, lumbar region (principal); S39.012A Strain of muscle, fascia and tendon of lower back, initial encounter; X58.XXXA Exposure to other specified factors, initial encounter; Y93.9 Activity, unspecified; Y92.9 Unspecified place or not applicable; Y99.9 Unspecified external cause status
CPT/HCPCS: 64483; J2003; J3301; Q9967

== ENCOUNTER 2024-11-04 08:03 | Outpatient (AMB) | payer OTHER, SELFPAY ==
[2024-11-04 08:05] VITALS: BP 105/63; PULSE 86; O2SAT 99
--- NOTE | 2024-11-04 08:05 | MHC.OFFVIS ---
Vital Signs 11/04/24 08:05 11/04/24 08:27 BP 105/63 104/66 Blood Pressure Location Lt brachial Lt brachial Position Sitting Sitting Pulse 86 83 Pulse Source Pulse Oximeter Pulse Oximeter Pulse Oximetry (%) 99 99 Oxygen Delivery Method Room Air Room Air Comment Pre-Op Post-Op Intake Visit Reasons: RIGHT L4, L5 TFESI Allergies No Known Allergies [No Known Allergies*] Allergy (Verified 08/28/24 13:26) PFSH Medical History Physical exam Pre-op evaluation Trigger finger, left middle finger URI (upper respiratory infection) Muscle spasm Class 1 obesity with body mass index (BMI) of 31.0 to 31.9 in adult Vitamin D deficiency Vitamin A deficiency Panniculitis Intestinal malabsorption following gastrectomy Overweight Hypothyroidism Surgical History S/P laparoscopic sleeve gastrectomy History of total abdominal hysterectomy and bilateral salpingo-oophorectomy History of carpal tunnel release Family History (Updated 05/20/24 @ 11:07 by Danay Birmingham MD) Father Thyroid disease Mother Hypertension Paternal Aunt Breast cancer Paternal Grandfather Hypertension Diabetes CVD (cardiovascular disease) Stroke Social History Household Members: Children Housing: House Do you presently have visiting nurse or other home services: No Alcohol intake: current Alcohol intake frequency: holidays/special occasions only Alcohol type: wine and hard liquor Patient Tobacco Use Status: Never used Tobacco e-Cigarette/Vaping Use: Never Used Second Hand Smoke Exposure: No Advance Directives Date on File: 04/04/22 service: No Current occupational status: unemployed Cognitive needs: No Hearing needs: No Vision needs: Yes Physical Exam Vital Signs: Last Vital Signs Pulse 83 11/04/24 08:27 BP 104/66 11/04/24 08:27 Pulse Ox 99 11/04/24 08:27 Oxygen Delivery Method Room Air 11/04/24 08:27 Quality Reporting (2019) Adult ([facility] 13810/25/68) Smoking risk assessment performed?: Yes Patient Tobacco Use Status: Never used Tobacco Assessment & Plan Assessment & Plan (1) Lumbar radiculopathy: Code(s): M54.16 - Radiculopathy, lumbar region Category: Medical Plan: Transforaminal L4-5 epidural steroid injection on the right. Informed consent was thoroughly explained to the patient before the procedure.? The patient came to the operating room.? She was positioned prone on operating table with a 2 pillows under his abdomen.? Time-out was performed delineating correct site and side of the procedure, nature of the injection, name and date of of the patient. The lower back of the patient was prepped with ChloraPrep and draped with sterile utility towels.? C-arm was brought over the operating field and sq picture of L4 vertebra were demonstrated on the screen.? The right side was chosen as the side of the injection.? Tilting machine ipsilateral to the right at the level of L4 1st the most prominent picture of the right L4 pedicle was obtained on the screen.? 3 mm below the level of the lowest point of the pedicle projection to the skin small amount of lidocaine 1% 3-4 cc was injected to anesthetize the skin.? After that 5 in 22 gauge Quincke point needle was inserted through the skin wheal and was advanced toward the L4-5 foramina on anterior posterior , lateral and oblique views intermittently.? When tip of the needle entered foramina projection on AP view injection of the contrast was performed demonstrating epidural spread of the contrast.? On the lateral view contrast was spread in the epidural fashion. After that injection of the treatment medicine 4 cc of lidocaine 1% mixed with Kenalog 40 mg was injected into the foramina.? Injection of the contrast and injection of the treatment medicine was observed live on the screen.? No intrathecal and no intravascular spread of the contrast was noted. The patient tolerated procedure well, the sterile Band-Aid was applied the patient went to recovery room uneventfully. (2) Myofascial low back pain: Code(s): M54.50 - Low back pain, unspecified Category: Medical (3) Strain of lumbar paraspinal muscle: Code(s): S39.012A - Strain of muscle, fascia and tendon of lower back, initial encounter Category: Medical Plan as above Orders: Orders FL guidance in treatment room Today M54.16 - Radiculopathy, lumbar region Coding Level of Care Code Procedure Only Diagnoses Lumbar radiculopathy M54.16 Myofascial low back pain M54.50 Strain of lumbar paraspinal muscle S39.012A
[2024-11-04 08:27] VITALS: BP 104/66; PULSE 83; O2SAT 99
== END 2024-11-04 08:28 | disposition home or self-care (01) ==
LOC: HO.PMCPRC 08:03
PROVIDERS: PCP Internal Medicine; Visit Provider Anesthesiology
DX: M54.16 Radiculopathy, lumbar region (principal); M54.50 Low back pain, unspecified; S39.012A Strain of muscle, fascia and tendon of lower back, initial encounter
CPT/HCPCS: 64483

== ENCOUNTER 2024-11-17 10:35 | Outpatient (AMB) | payer OTHER, SELFPAY ==
[2024-11-17 10:43] VITALS: BP 118/82; BMI 28.7
--- NOTE | 2024-11-17 10:43 | MHC.PC.OV ---
Vital Signs 11/17/24 10:43 Height 5 ft 6 in Weight 178 lb BMI 28.7 BP 118/82 Blood Pressure Location Lt brachial Position Sitting Intake Visit Reasons: depression Intake Note: Patient here for a follow up depression Celery Wrapper Required: Yes Celery Wrapper Language: Laborer High Density Press Name: Danay Birmingham MD Information Interpreted: non-clinical & clinical Accompanied by: Self / Same As Patient Allergies No Known Allergies [No Known Allergies*] Allergy (Verified 11/17/24 11:04) Medication List - Last Reconciled 11/17/24 by Danay Birmingham MD acetaminophen (Tylenol Extra Strength) 500 mg PO Q6H PRN diclofenac sodium 3% 1 appl topical BID gabapentin 100 mg PO TID levothyroxine 75 mcg PO DAILY lidocaine 5% (Lidoderm) 1 patch topical DAILY PRN MDD remove after 12 hours methocarbamol 500 mg PO TID PRN mirtazapine 15 mg PO BEDTIME 90 days tirzepatide (weight loss) (Zepbound) 7.5 mg (0.5 mL) subcut QWEEK 4 weeks Tobacco use date assessed: 11/17/24 Dental Screening Dental Screen Date: 11/17/24 Did you have a dental visit in the last 12 months?: Yes Did you have a dental problem in the last 6 months where you did not have access to dental care?: No Was dental information given to patient?: Patient has dentist HPI HPI Comments History of Present Illness Details The patient is a 48-year-old female presenting with depression and weight management concerns. Mirtazapine is to better manage depressive symptoms. She reports no significant side effects, indicating the medication is well tolerated, with her PHQ-9 score demonstrating minor depression symptoms. The patient and her pharmacy experienced challenges with medication approval, which were subsequently resolved. Regarding weight management, the patient engaged in a weight loss plan since August, originally weighing 191 lbs. She has reported a successful weight reduction to 178 lbs through persistent adherence from September, despite pharmacy and insurance hurdles. This describes the patient?s overarching issues with depression management and weight maintenance, shaped by the interplay of medication administration and effective weight reduction measures within a challenging context of approval logistics. She also has hypothyroidism that has been stable with medications. Insomnia well controlled with medication also. [facility] Medical History (Updated 11/17/24 @ 11:11 by Danay Birmingham MD) Physical exam Pre-op evaluation Trigger finger, left middle finger URI (upper respiratory infection) Muscle spasm Class 1 obesity with body mass index (BMI) of 31.0 to 31.9 in adult Vitamin D deficiency Vitamin A deficiency Panniculitis Intestinal malabsorption following gastrectomy Overweight Hypothyroidism Surgical History S/P laparoscopic sleeve gastrectomy History of total abdominal hysterectomy and bilateral salpingo-oophorectomy History of carpal tunnel release Family History Father Thyroid disease Mother Hypertension Paternal Aunt Breast cancer Paternal Grandfather Hypertension Diabetes CVD (cardiovascular disease) Stroke Social History Household Members: Children Housing: House Do you presently have visiting nurse or other home services: No Alcohol intake: current Alcohol intake frequency: holidays/special occasions only Alcohol type: wine and hard liquor Patient Tobacco Use Status: Never used Tobacco e-Cigarette/Vaping Use: Never Used Second Hand Smoke Exposure: No Advance Directives Date on File: 04/04/22 service: No Current occupational status: unemployed Cognitive needs: No Hearing needs: No Vision needs: Yes Questionnaire PHQ-9 Over the last 2 weeks, how often have you been bothered by any of the following problems? 1. Little interest or pleasure in doing things: not at all 2. Feeling down, depressed, or hopeless: not at all 3. Trouble falling or staying asleep, or sleeping too much: more than half the days 4. Feeling tired or having little energy: not at all 5. Poor appetite or overeating: not at all 6. Feeling bad about yourself - or that you are a failure or have let yourself or your family down: not at all 7. Trouble concentrating on things, such as reading the newspaper or watching television: not at all 8. Moving or speaking so slowly that other people could have noticed. Or the opposite - being so fidgety or restless that you have been moving around a lot more than usual: not at all 9. Thoughts that you would be better off or of hurting yourself in some way: not at all Total score: 2 Depression Screening Interpretation: Positive Depression Screening Follow-up: Existing condition and Follow-up Visit Requested Depression Screening Done: Yes 19028 - PHQ-9 Billing: Yes Source: Developed by Drs. Marquise Christy, Chelsey Gore, Rolando Espino and colleagues, with an educational jose alejandro from [employer]. Thrive Questionnaire Date Thrive assessed: 11/17/24 I am a: Patient What is your living situation today?: I have a steady place to live Within the past 12 months, did the food you bought not last and you didn't have the money to get more?: Sometimes True Within the past 12 months, did you worry whether your food would run out before you got money to buy more?: Sometimes True Do you have trouble paying for medicines?: Yes Do you have trouble getting transportation to medical appointments?: No Do you have trouble paying your heating and electricity bill?: No Do you have trouble taking care of your child, family member or friend?: No Do you have trouble with day-to-day activities such as bathing, preparing meals, shopping, managing finances, etc.?: No Are you currently unemployed and looking for a job?: No Are you interested in more education?: No Please select the resources that you would like help with: None Currently or been in a relationship where the following occur: I choose not to answer THRIVE Score: 2 AUDIT C Alcohol Use Questionnaire (AUDIT-C) 1. How often do you have a drink containing alcohol?: 2-4 times a month 2. How many drinks containing alcohol do you have on a typical day when you are drinking?: 1 or 2 3. How often do you have six or more drinks on one occasion?: Never Total Score: 2 Score Reviewed/Action Taken: No SEYMOUR-7 AMB Questionnaire SEYMOUR-7 Date SEYMOUR - 7 assessed: 11/17/24 Feeling nervous, anxious, or on edge: 0 = Not at all Not being able to stop or control worryin = Not at all Worrying too much about different things: 0 = Not at all Trouble relaxin = Not at all Being so restless that it is hard to sit still: 0 = Not at all Becoming easily annoyed or irritable: 0 = Not at all Feeling afraid as if something awful might happen: 0 = Not at all Total SEYMOUR-7 score (0-4 normal; 5-9 mild; 10-14 moderate; 15-21 severe): 0 Source: Developed by Drs. Marquise Christy, Chelsey Gore, Rolando Espino and colleagues, with an educational jose alejandro from [employer]. SEYMOUR-7 Assessment Billing SEYMOUR-7 Assessment Tool: SEYMOUR-7 Assessment 10679 Review of Systems Const All systems reviewed & are unremarkable except as noted in HPI and below Card Denies chest pain at rest, Denies chest pain with activity, Denies edema, Denies irregular heart rhythm, Denies claudication, Denies dyspnea, Denies dyspnea on exertion, Denies orthopnea, Denies paroxysmal nocturnal dyspnea and Denies slow heart rate Resp Denies cough, Denies dyspnea and Denies dyspnea on exertion Physical exam (Primary Care) Vital Signs: Last Vital Signs BP 118/82 11/17/24 10:43 BMI result Body Mass Index 28.7 Tobacco/Smoking Status: Tobacco use Status Tobacco use date assessed 11/17/24 11/17/24 10:47 Patient Tobacco Use Status Never used Tobacco 11/17/24 10:47 e-Cigarette/Vaping Use Never Used 11/17/24 10:47 PHQ-9: PHQ-9 Score PHQ-9: Total score 2 11/17/24 11:08 Depression Screening Interpretation: Positive Depression Screening Follow-up: Existing condition and Follow-up Visit Requested Thrive Assessment: Date of Thrive Assessment Date Thrive assessed 11/17/24 11/17/24 10:47 Currently or been in a relationship where the following occur: I choose not to answer Resp Effort & Inspection: normal respiratory effort Auscultation: clear to auscultation bilaterally Cardio Jugular venous distension: no JVD Rate: regular rate Rhythm: regular rhythm Heart sounds: S1 normal heart sound present and S2 normal heart sound present Extrem General: Yes full ROM Coding Level of Care Code Est Pt Level 4 (60217) Complex EM visit Add On G2211 Diagnoses Mild major depression F32.0 Obese E66.9 Hypothyroidism, unspecified type E03.9 Hypothyroidism type: unspecified Insomnia G47.00 Additional Codes SEYMOUR-7 Assessment Billing - SEYMOUR-7 Assessment Tool: SEYMOUR-7 Assessment 99884 ([id number]) PHQ-9 - 31742 - PHQ-9 Billing: Yes ([id number]) Time Spent (min) 22 Assessment & Plan Assessment & Plan (1) Mild major depression: Code(s): F32.0 - Major depressive disorder, single episode, mild Category: Medical (2) Obese: Code(s): E66.9 - Obesity, unspecified Category: Medical (3) Hypothyroidism: Code(s): E03.9 - Hypothyroidism, unspecified Category: Medical Qualifiers: Hypothyroidism type: unspecified Qualified Code(s): E03.9 - Hypothyroidism, unspecified (4) Insomnia: Code(s): G47.00 - Insomnia, unspecified Category: Medical Plan For depression, the patient remains on an adjusted regimen of Mirtazapine medication with noted effectiveness and minimal side effects. Pharmacy and approval coordination issues have been resolved, supporting uninterrupted treatment. The patient's weight management plan is proceeding well, reflected by her continued weight reduction. Continuous support and adherence to nutritional strategies will underpin further progress. Patient was informed and verbally consented to the use of an ambient scribe for clinic note documentation during this visit. I discussed the medication adjustments with the patient, confirming its efficacy in managing depressive symptoms without side effects. We addressed the pharmacy approval issues, affirming their resolution in facilitating adherence to the treatment plan. I emphasized the significance of continued progress in weight management, noted by her reduction from 191 lbs to 178 lbs. Our conversation also underscored the patient's perseverance through these challenges. Orders: Orders Comprehensive [place]. Panel Fast 1 Month E66.9 - Obesity, unspecified Lipid Panel 1 Month E78.5 - Hyperlipidemia, unspecified Vitamin D 25-OH Total 1 Month E55.9 - Vitamin D deficiency, unspecified Thyroid Stimulating Hormone 1 Month E03.9 - Hypothyroidism, unspecified Medications: New tirzepatide (weight loss) (Zepbound) 12.5 mg (0.5 mL) subcut QWEEK 2 mL 0RF 4 weeks E66.9 - Obesity, unspecified Discontinued tirzepatide (weight loss) (Zepbound) Discontinued Reason: Patient Completed Course 7.5 mg (0.5 mL) subcut QWEEK 4 weeks 2 mL 0RF E66.9 - Obesity, unspecified, Z68.31 - Body mass index [BMI] 31.0-31.9, adult Patient Instructions: - Continue current medication regimen of Mirtazapine for depression as it is effective. - Maintain adherence to weight management strategies highlighting recent success. - Monitor for any changes in symptoms or side effects from medication. - Return for follow-up to evaluate ongoing progress in both depression management and weight control.
== END 2024-11-17 11:18 | disposition home or self-care (01) ==
LOC: HO.HMCH 10:36
PROVIDERS: PCP Internal Medicine; Visit Provider Internal Medicine
DX: E03.9 Hypothyroidism, unspecified (principal); F32.0 Major depressive disorder, single episode, mild; E66.9 Obesity, unspecified; Z68.28 Body mass index [BMI] 28.0-28.9, adult; G47.00 Insomnia, unspecified

== ENCOUNTER → 2024-11-17 10:35 | Outpatient (BNVA) | payer OTHER, SELFPAY | PROVIDERS: PCP Internal Medicine; Visit Provider Internal Medicine | DX: F32.0 Major depressive disorder, single episode, mild (principal); E03.9 Hypothyroidism, unspecified; G47.00 Insomnia, unspecified | CPT/HCPCS: 96127; 99212 ==

== ENCOUNTER 2024-11-19 13:15 | Outpatient (AMB) | payer OTHER, SELFPAY ==
--- NOTE | 2024-11-19 13:18 | MHC.OFFVIS ---
Vital Signs 11/19/24 13:19 Height 5 ft 6 in Weight 179 lb BMI 28.9 BP 124/74 Blood Pressure Location Lt brachial Position Sitting Respiration 16 Pulse 81 Pulse Source Pulse Oximeter Pulse Oximetry (%) 99 Oxygen Delivery Method Room Air Intake Visit Reasons: RIGHT L4, L5 TFESI Electrical Apprentice Required: No Allergies No Known Allergies [No Known Allergies*] Allergy (Verified 11/19/24 13:20) Medication List - Last Reconciled 11/19/24 by Bree Godoy LPN acetaminophen (Tylenol Extra Strength) 500 mg PO Q6H PRN diclofenac sodium 3% 1 appl topical BID gabapentin 100 mg PO TID levothyroxine 75 mcg PO DAILY lidocaine 5% (Lidoderm) 1 patch topical DAILY PRN MDD remove after 12 hours methocarbamol 500 mg PO TID PRN tirzepatide (weight loss) (Zepbound) 12.5 mg (0.5 mL) subcut QWEEK 4 weeks HPI Comments Details: Patient presents back to the office today for follow-up, 2 weeks status post right L4-5 transforaminal epidural steroid injection This injection was performed at the request of neurosurgeon. Patient reports no pain relief since the injection. If anything she feels like her pain may be worse than it was before the injection She has follow-up planned on 11/24 with neurosurgeon to discuss Prior: Marie presents back to the office today for follow-up. She is accompanied by her daughter who assists with Icelandic translation. Recently evaluated by Neurosurgery at [facility] Records from that visit were received and have been reviewed. He is requesting a repeat transforaminal epidural steroid injection prior to proceeding with surgical intervention She continues with muscle relaxers and Tylenol as needed. Neurosurgery provided her with a work note, return to work as long as it is sedentary Pain today is rated as a 7/10 right lower back with radiation down the right leg Prior: Patient presents back to the office today for follow-up. Pain today is rated as a 9/10, right lower back with radiation down the right leg. Neurosurgery appointment was rescheduled until August 22 as the neurosurgeon is out of the office She is requesting updated work note Prior: Marie presents back to the office today for follow-up lower back pain Continues with right lower back pain with radiation down the right leg Endorses burning pain down the right leg to the calf Has been taking muscle relaxers and Tylenol with minimal improvement. Requesting work note, she has appointment with Neurosurgery 07/24/24 Prior: Marie presents back to the office today for follow-up. She is due to return to work, she is requesting a note. Referral at last visit was placed for neuro spine, Dr. Wolf [facility]. She states they have not called her to schedule an appointment. She did not have the phone number so she did not attempt to call their office. Pain today is rated as a 9/10. Previously she was taking cyclobenzaprine with some improvement of her pain but it was making her very sleepy. Tried changing to methocarbamol but states this did not help her as much. She would like to restart cyclobenzaprine. Denies red flag symptoms including new loss of bowel, bladder or saddle anesthesia. Prior: Patient presents back to the office today for follow up, 1 month s/p right L4-5 TFESI performed 02/19/[address] Kang she reports some improvement in pain for first 3 days, then pain returned. pain today 7/10, right lower back with radiation down right leg to mid calf denies red flag symptoms including new loss of bowel, bladder or saddle anesthesia requesting refill on methocarbamol, is able to manage the pain with muscle relaxer and lidocaine patches Prior: Patient presents back to the office today for follow-up, review recent MRI MRI reviewed with patient, results as per below Patient continues with right lower back pain with radiation down her right leg. No improvement with physical therapy that she just completed. She reports some improvement with the topical diclofenac and muscle relaxers though the pain returns once the medication wears off. Denies red flag symptoms including new loss of bowel, bladder or saddle anesthesia. Prior: Marie is a very pleasant Icelandic-speaking female who presented to the office today for evaluation management of her lower back pain. Visit was completed today was Icelandic interpretation by Roula Dozier. Patient reports the pain started in September after she slipped on the ice, fell landing on her buttocks. She had x-rays completed and has been taking Flexeril without improvement of her pain. She has tried Tylenol without improvement of her pain. She is unable to tolerate oral nonsteroidal anti-inflammatory medications due to history of gastric surgery. She has been using icy hot with some improvement. She is doing home exercise program and physical therap, states it provide her minimal improvement of her pain. She is prescribed gabapentin by her primary care doctor which does not provide her any relief. Pain midline lower back with radiation down her right lateral thigh past the level of the knee. She reports the pain is worse at night and when she tries to get up in the morning. Heat helps some but otherwise she has not able to find a position of comfort or anything to improve her pain. Patient denies red flag symptoms including new loss of bowel, bladder or saddle anesthesia She denies history of back surgeries. She denies implantable devices Denies current use of anticoagulant [facility] Medical History Physical exam Pre-op evaluation Trigger finger, left middle finger URI (upper respiratory infection) Muscle spasm Class 1 obesity with body mass index (BMI) of 31.0 to 31.9 in adult Vitamin D deficiency Vitamin A deficiency Panniculitis Intestinal malabsorption following gastrectomy Overweight Hypothyroidism Surgical History S/P laparoscopic sleeve gastrectomy History of total abdominal hysterectomy and bilateral salpingo-oophorectomy History of carpal tunnel release Family History Father Thyroid disease Mother Hypertension Paternal Aunt Breast cancer Paternal Grandfather Hypertension Diabetes CVD (cardiovascular disease) Stroke Social History Household Members: Children Housing: House Do you presently have visiting nurse or other home services: No Alcohol intake: current Alcohol intake frequency: holidays/special occasions only Alcohol type: wine and hard liquor Patient Tobacco Use Status: Never used Tobacco e-Cigarette/Vaping Use: Never Used Second Hand Smoke Exposure: No Advance Directives Date on File: 04/04/22 service: No Current occupational status: unemployed Cognitive needs: No Hearing needs: No Vision needs: Yes Review of Systems Const All systems reviewed & are unremarkable except as noted in HPI and below Physical Exam Vital Signs: Last Vital Signs Pulse 81 11/19/24 13:19 Resp 16 11/19/24 13:19 BP 124/74 11/19/24 13:19 Pulse Ox 99 11/19/24 13:19 Oxygen Delivery Method Room Air 11/19/24 13:19 BMI result Body Mass Index 28.9 General: awake, alert, oriented. Answers questions appropriately. Fully engaged in examination. Skin: warm, dry, intact HEENT: Normocephalic. Hearing intact. Cardiac: External chest normal in appearance. Respiratory: No cough, audible wheezing or stridor. Abdomen: without gross distension. MS: No obvious swelling or deformities. Neurological: Oriented to person, place, time and situation. Thought process intact. Ambulates with antalgic gait Psychiatric: Appropriate mood and affect. Good judgment and insight. Results Reviewed Results Reviewed: 12/05/23 MR/MR lumbar spine wo con FINDINGS: Normal anatomic alignment. No suspicious marrow signal or focal osseous lesion. Right-sided predominant endplate marrow edema at L4-L5. Small L4 inferior endplate Schmorl's node. The vertebral body heights are maintained. The intervertebral discs are of normal height and signal. The conus medullaris terminates at the level of T12-L1. The distal spinal cord is normal in appearance. The cauda equina nerve roots appear normal. No significant abnormalities of the paraspinal musculature. Limited evaluation of the intra-abdominal structures without significant abnormalities. The abdominal aorta is of normal contour and caliber. SPINAL LEVELS: L1-L2: No significant spinal canal or neuroforaminal narrowing. Shallow disc bulge. L2-L3: Broad-based disc bulge, mild facet arthropathy, ligamentum flavum thickening. Mild central spinal canal stenosis. Mild bilateral neural foraminal narrowing L3-L4: Shallow right eccentric disc bulge. Facet arthropathy. Ligamentum flavum thickening. Mild central spinal canal stenosis. Right greater than left subarticular zone narrowing. Mild left and mild to moderate right neural foraminal narrowing L4-L5: Broad-based disc bulge. Facet arthropathy. Ligamentum flavum thickening. Moderate central spinal canal stenosis. Bilateral subarticular zone narrowing with likely impingement of the traversing L5 nerve roots. Mild bilateral neural foraminal narrowing L5-S1: Facet arthropathy with small joint effusions. Shallow disc bulge. No significant spinal canal stenosis. Mild bilateral neural foraminal narrowing. IMPRESSION: Multilevel lumbar spondylosis as described above, worst at L4-L5 where there is moderate spinal canal stenosis and bilateral subarticular zone narrowing with likely impingement of the traversing L5 nerve roots. Assessment & Plan Assessment & Plan (1) Lumbar radiculopathy: Code(s): M54.16 - Radiculopathy, lumbar region Category: Medical (2) Myofascial low back pain: Code(s): M54.50 - Low back pain, unspecified Category: Medical (3) Strain of lumbar paraspinal muscle: Code(s): S39.012A - Strain of muscle, fascia and tendon of lower back, initial encounter Category: Medical Plan Marie presented back to the office today for follow-up, 2 weeks status post right L4-5 transforaminal epidural steroid injections Reports no noticeable improvement in her pain since the injection. Continue with cyclobenzaprine 10 mg p.o. q.8 hours as needed. Follow up with Neurosurgery as planned on 11/24/2024 All questions and concerns have been answered and patient agrees with the plan. Follow up after neurosurgical evaluation, sooner if needed. Coding Level of Care Code Est Pt Level 3 (59735) Complex EM visit Add On G2211 Diagnoses Lumbar radiculopathy M54.16 Myofascial low back pain M54.50 Strain of lumbar paraspinal muscle S39.012A
[2024-11-19 13:19] VITALS: BP 124/74; PULSE 81; RESP 16; O2SAT 99; BMI 28.9
== END 2024-11-19 13:40 | disposition home or self-care (01) ==
LOC: HO.PMC 13:16
PROVIDERS: PCP Internal Medicine; Visit Provider Registered Nurse Emergency
DX: M54.16 Radiculopathy, lumbar region (principal); M54.50 Low back pain, unspecified; S39.012A Strain of muscle, fascia and tendon of lower back, initial encounter
CPT/HCPCS: 99213; G2211

== ENCOUNTER → 2024-11-19 13:15 | Outpatient (BNVA) | payer OTHER, SELFPAY | PROVIDERS: PCP Internal Medicine; Visit Provider Registered Nurse Emergency | DX: S39.012A Strain of muscle, fascia and tendon of lower back, initial encounter (principal); M54.16 Radiculopathy, lumbar region; X58.XXXA Exposure to other specified factors, initial encounter; Y93.9 Activity, unspecified; Y92.9 Unspecified place or not applicable; Y99.9 Unspecified external cause status | CPT/HCPCS: 99212 ==

== ENCOUNTER 2025-02-02 08:05 | Outpatient (REF) | payer OTHER, SELFPAY ==
[2025-02-02 09:23] LABS: Alanine Aminotransferase 17 U/L (0-31); Albumin Level 4.2 g/dL (3.5-5.0); Alkaline Phosphatase 80 U/L (39-117); Anion Gap 9 (12-20); Aspartate Amino Transferase 21 U/L (5-31); Bilirubin Total 0.4 mg/dL (0.0-1.0); Blood Urea Nitrogen 13 mg/dL (9-16); Calcium 9.6 mg/dL (8.4-10.2); Carbon Dioxide 30 mmol/L (22-29); Chloride 110 mmol/L (96-108); Cholesterol 194 mg/dL (<200); Estimated Glomerular Filt Rate > 60; Glucose Fasting 87 mg/dL (60-99); HDL Cholesterol 54 mg/dL (>40); LDL Cholesterol Calculated 129 mg/dL (<100); Potassium 4.4 mmol/L (3.3-5.1); Sodium 145 mmol/L (135-145); Total Protein 6.9 g/dL (6.5-8.0); Triglycerides 59 mg/dL (<150)
[2025-02-02 09:39] LABS: Thyroid Stimulating Hormone 0.96 uIU/mL (0.32-4.0)
== END 2025-02-02 08:06 | disposition home or self-care (01) ==
LOC: HO.LAB 08:05
PROVIDERS: PCP Internal Medicine; Visit Provider Internal Medicine
DX: E78.5 Hyperlipidemia, unspecified (principal); E66.9 Obesity, unspecified; E55.9 Vitamin D deficiency, unspecified; E03.9 Hypothyroidism, unspecified
CPT/HCPCS: 36415; 80053; 80061; 82306; 84443

== ENCOUNTER 2025-06-08 08:25 | Outpatient (AMB) | payer OTHER, SELFPAY ==
[2025-06-08 08:38] VITALS: BP 130/70; PULSE 95; TEMP 36.2; O2SAT 98; BMI 27.8
--- NOTE | 2025-06-08 08:38 | A.OFFPC_ITS ---
Vital Signs 06/08/25 08:38 Height 5 ft 6 in Weight 172 lb 2 oz BMI 27.8 BP 130/70 Blood Pressure Location Lt brachial Position Sitting Pulse 95 Pulse Source Pulse Oximeter Temp 97.1 F Temp Source Temporal Artery Scan Pulse Oximetry (%) 98 Oxygen Delivery Method Room Air Intake Visit Reasons: Annual Exam Chemical Research Technician Required: No Accompanied by: Self / Same As Patient Allergies No Known Allergies (No Known Allergies*) Allergy (Verified 06/08/25 08:48) Medication List - Last Reconciled 06/08/25 by Danay Birmingham MD acetaminophen (Tylenol Extra Strength) 500 mg PO Q6H PRN diclofenac sodium 3% 1 appl topical BID gabapentin 100 mg PO TID levothyroxine 75 mcg PO DAILY lidocaine 5% (Lidoderm) 1 patch topical DAILY PRN MDD remove after 12 hours methocarbamol 500 mg PO TID PRN tirzepatide (weight loss) (Zepbound) 15 mg (0.5 mL) subcut QWEEK 4 weeks Tobacco use date assessed: 06/08/25 Dental Screening Dental Screen Date: 06/08/25 Did you have a dental visit in the last 12 months?: Yes Did you have a dental problem in the last 6 months where you did not have access to dental care?: No Was dental information given to patient?: Patient has dentist HPI HPI Comments History of Present Illness Details The patient is a 49-year-old female presenting for an annual physical examination. She has a history of mild depression, with a PHQ-9 score of 8, indicating mild depression. She does not currently see a mental health professional and is not on medication, although trazodone was previously prescribed to aid with sleep disturbances. The patient has a significant surgical history, including a gastrectomy performed in 2019, a hysterectomy with oophorectomy, and bilateral carpal tunnel release. Additionally, she has undergone spinal fusion at the L4-L5 level. Her family history is notable for cancer, with an aunt who had breast cancer and a cousin with colon cancer. Her father has thyroid issues, and her mother has hypertension. [facility] Medical History (Updated 06/08/25 @ 09:03 by Danay Birmingham MD) Fusion of lumbar spine Physical exam Pre-op evaluation Trigger finger, left middle finger URI (upper respiratory infection) Muscle spasm Class 1 obesity with body mass index (BMI) of 31.0 to 31.9 in adult Vitamin D deficiency Vitamin A deficiency Panniculitis Intestinal malabsorption following gastrectomy Overweight Hypothyroidism Surgical History S/P laparoscopic sleeve gastrectomy History of total abdominal hysterectomy and bilateral salpingo-oophorectomy History of carpal tunnel release Family History Father Thyroid disease Mother Hypertension Paternal Aunt Breast cancer Paternal Grandfather Hypertension Diabetes CVD (cardiovascular disease) Stroke Social History Household Members: Children Housing: House Do you presently have visiting nurse or other home services: No Alcohol intake: current Alcohol intake frequency: holidays/special occasions only Alcohol type: wine and hard liquor Patient Tobacco Use Status: Never used Tobacco e-Cigarette/Vaping Use: Never Used Second Hand Smoke Exposure: No Advance Directives Date on File: 04/04/22 service: No Current occupational status: unemployed Cognitive needs: No Hearing needs: No Vision needs: Yes Questionnaire PHQ-9 Over the last 2 weeks, how often have you been bothered by any of the following problems? 1. Little interest or pleasure in doing things: several days 2. Feeling down, depressed, or hopeless: several days 3. Trouble falling or staying asleep, or sleeping too much: more than half the days 4. Feeling tired or having little energy: several days 5. Poor appetite or overeating: several days 6. Feeling bad about yourself - or that you are a failure or have let yourself or your family down: several days 7. Trouble concentrating on things, such as reading the newspaper or watching television: several days 8. Moving or speaking so slowly that other people could have noticed. Or the opposite - being so fidgety or restless that you have been moving around a lot more than usual: not at all 9. Thoughts that you would be better off or of hurting yourself in some way: not at all Total score: 8 Depression Screening Interpretation: Positive Depression Screening Follow-up: Existing condition, Follow-up Visit Requested and Declines treatment Depression Screening Done: Yes 20139 - PHQ-9 Billing: Yes Source: Developed by Drs. Marquise Christy, Chelsey Gore, Rolando Espino and colleagues, with an educational jose alejandro from [employer]. Thrive Questionnaire Date Thrive assessed: 06/01/25 I am a: Patient What is your living situation today?: I have a steady place to live Within the past 12 months, did the food you bought not last and you didn't have the money to get more?: Often true Within the past 12 months, did you worry whether your food would run out before you got money to buy more?: Often true Do you have trouble paying for medicines?: Yes Do you have trouble getting transportation to medical appointments?: No Do you have trouble paying your heating and electricity bill?: Yes Do you have trouble taking care of your child, family member or friend?: No Do you have trouble with day-to-day activities such as bathing, preparing meals, shopping, managing finances, etc.?: No Are you currently unemployed and looking for a job?: I choose not to answer this question Are you interested in more education?: I choose not to answer this question Please select the resources that you would like help with: Food, Paying for medicine and Utilities Currently or been in a relationship where the following occur: Controlled Financially THRIVE Score: 4 AUDIT C Alcohol Use Questionnaire (AUDIT-C) 1. How often do you have a drink containing alcohol?: Monthly or less 2. How many drinks containing alcohol do you have on a typical day when you are drinking?: 3 or 4 3. How often do you have six or more drinks on one occasion?: Never Total Score: 2 Score Reviewed/Action Taken: No SEYMOUR-7 AMB Questionnaire SEYMOUR-7 Date SEYMOUR - 7 assessed: 11/17/24 Feeling nervous, anxious, or on edge: 1 = Several days Not being able to stop or control worryin = Several days Worrying too much about different things: 2 = More than half the days Trouble relaxin = Several days Being so restless that it is hard to sit still: 1 = Several days Becoming easily annoyed or irritable: 2 = More than half the days Feeling afraid as if something awful might happen: 2 = More than half the days Total SEYMOUR-7 score (0-4 normal; 5-9 mild; 10-14 moderate; 15-21 severe): 10 Source: Developed by Drs. Marquise Christy, Chelsey Gore, Rolando Espino and colleagues, with an educational jose alejandro from [employer]. SEYMOUR-7 Assessment Billing SEYMOUR-7 Assessment Tool: SEYMOUR-7 Assessment 65371 Review of Systems Const All systems reviewed & are unremarkable except as noted in HPI and below Card Denies chest pain at rest, Denies chest pain with activity, Denies edema, Denies irregular heart rhythm, Denies claudication, Denies dyspnea, Denies dyspnea on exertion, Denies orthopnea, Denies paroxysmal nocturnal dyspnea and Denies slow heart rate Resp Denies cough, Denies dyspnea and Denies dyspnea on exertion GI Denies abdominal pain, Denies change in bowel habits, Denies excessive flatus, Denies nausea and Denies vomiting Denies urinary incontinence, Denies urinary hesitancy and Denies urinary urgency Musc Denies atrophy, Denies deformity and Denies limited range of motion Physical exam (Primary Care) Vital Signs: Last Vital Signs Temp 97.1 F 06/08/25 08:38 Pulse 95 06/08/25 08:38 BP 130/70 06/08/25 08:38 Pulse Ox 98 06/08/25 08:38 Oxygen Delivery Method Room Air 06/08/25 08:38 BMI result Body Mass Index 27.8 Tobacco/Smoking Status: Tobacco use Status Tobacco use date assessed 06/08/25 06/08/25 08:41 Patient Tobacco Use Status Never used Tobacco 06/08/25 08:41 e-Cigarette/Vaping Use Never Used 06/08/25 08:41 PHQ-9: PHQ-9 Score PHQ-9: Total score 8 06/08/25 08:41 Depression Screening Interpretation: Positive Depression Screening Follow-up: Existing condition, Follow-up Visit Requested and Declines treatment Thrive Assessment: Date of Thrive Assessment Date Thrive assessed 06/01/25 06/08/25 08:41 Currently or been in a relationship where the following occur: Controlled Financially HENMT Head: Yes normal to inspection, Yes normocephalic and Yes atraumatic Ears: external ears normal Eyes General: appearance normal, both eyes and all related structures Eyelids: Yes eyelids normal Conjunctivae: conjunctivae normal Neck Neck: Yes normal visual inspection and Yes supple Resp Effort & Inspection: normal respiratory effort Auscultation: clear to auscultation bilaterally Cardio Jugular venous distension: no JVD Rate: regular rate Rhythm: regular rhythm Heart sounds: S1 normal heart sound present and S2 normal heart sound present GI Inspection: Yes normal to inspection Palpation (GI): Soft to palpation and nontender Auscultation: normal bowel sounds Skin General skin exam: no rashes or lesions noted Neuro General: no focal motor deficits Extrem General: Yes full ROM Psych Appearance: grossly normal Coding Level of Care Code Est Pt Level 3 (53134) Est Pt Prev Care 40-64y(94694) Diagnoses Physical exam Z00.00 Mild major depression F32.0 Insomnia G47.00 Additional Codes PHQ-9 - 63926 - PHQ-9 Billing: Yes ([id number]) SEYMOUR-7 Assessment Billing - SEYMOUR-7 Assessment Tool: SEYMOUR-7 Assessment 46209 ([id number]) Time Spent (min) 32 Assessment & Plan Assessment & Plan (1) Physical exam: Code(s): Z00.00 - Encounter for general adult medical examination without abnormal findings Category: Medical (2) Mild major depression: Code(s): F32.0 - Major depressive disorder, single episode, mild Category: Medical (3) Insomnia: Code(s): G47.00 - Insomnia, unspecified Category: Medical Plan Plan Patient was informed and verbally consented to the use of an ambient scribe for clinic note documentation during this visit. 1. Encounter for general adult medical examination without abnormal findings Z00.00 The patient's vaccinations, including tetanus and pneumonia, are up to date. The patient's family history of cancer, including breast and colon cancer, was discussed for risk assessment and future screening considerations. 2. Depression, unspecified F32.A The patient has mild depression with a PHQ-9 score of 8. Trazodone was previously prescribed to aid with sleep disturbances, and the patient is considering resuming it as needed. Orders: Orders Thyroid Stimulating Hormone 6 Months E03.9 - Hypothyroidism, unspecified Referrals Open Access Screening Colonoscopy Referral Z12.12 - Encounter for screening for malignant neoplasm of rectum Medications: New trazodone 50 mg PO BEDTIME PRN 90 tabs 1RF sleep 90 days
--- OUTSIDE RECORDS SUMMARY | 2025-06-08 08:55 | XMS_ITS | Clinical Summary ---
Author Organization [facility] Address [address] [place] [address] Phone Care Team Providers Care Mix Technician Name Role Phone Unavailable Primary Care Provider Unavailabl e Allergies No known active allergies Medications levothyroxine (SYNTHROID, LEVOTHROID) 25 mcg tablet Take by mouth 1 (one) time each day before breakfast. Active senna (SENOKOT) 8.6 mg tablet Take 1 tablet (8.6 mg total) by mouth 1 (one) time each day if needed for constipation (bedtime prn). 30 each 05/06/20 25 026 Active methocarbamoL (ROBAXIN) 750 mg tablet Take 1 tablet (750 mg total) by mouth 3 (three) times a day if needed for muscle spasms for up to 14 days. 42 each 05/06/20 25 Active acetaminophen (TYLENOL) 500 mg tablet Take 2 tablets (1,000 mg total) by mouth every 8 (eight) hours if needed for mild pain or moderate pain. 180 tablet 05/06/20 25 025 ondansetron ODT (ZOFRAN-ODT) 4 mg disintegrating tablet Take 1 tablet (4 mg total) by mouth every 8 (eight) hours if needed for vomiting or nausea for up to 7 days. 21 tablet 05/06/20 25 025 oxyCODONE (ROXICODONE) 5 mg immediate release tablet Take 1 tablet (5 mg total) by mouth every 4 (four) hours if needed for severe pain (4-6 hrs prn) for up to 7 days. Max Daily Amount: 30 mg 42 tablet 05/06/20 025 Active Problems Problem Noted Date Diagnosed Date Lumbar radiculopathy 05/06/2025 Encounters Date Type Department Care Team Description 05/06/2025 8:44 AM EDT Anesthesia Event [facility] OR [address] [place] [address] [phone] Raymond Gipson DO 05/06/2025 8:30 AM EDT - 05/06/2025 1:30 PM EDT Surgery [facility] OR [address] [place] [address] [phone] Ermias Bradley MD L4-5 TRANSFORAMINAL INTERBODY LUMBAR FUSION W/ L4-5 AND L5-S1 LAMINECTOMY [47347 (CPT ) +7 more] 05/06/2025 6:50 AM EDT - 05/06/2025 4:47 PM EDT Hospital Encounter [facility] OR [address] [place] [address] [phone] Ermias Bradley MD Pre-op evaluation (Primary Dx); Radiculopathy of lumbar region; Lumbar radiculopathy Discharge Disposition: Home or Self Care from Last 3 Months Surgical History Surgery Date Site/Laterality Comments CARPAL TUNNEL RELEASE BARIATRIC SURGERY GASTRIC SLEEVE HYSTERECTOMY Medical History Medical History Date Comments Hypothyroidism Lumbar radiculopathy, right Social History Tobacco Use Types Packs/Day Years Used Date Smoking Tobacco: Never Smokeless Tobacco: Never Tobacco Cessation:Counseling Given: Not Answered Interpersonal Safety Answer Date Record ed Physical Abuse Unrecognized value 05/06/2025 Verbal Abuse Unrecognized value 05/06/2025 Comments Unknown Sex and Gender Information Value Date Recorded Sex Assigned at Female 04/27/2025 1:21 PM EDT Legal Sex Female 12:25 PM EDT Gender Identity Not on file Sexual Orientation Not on file Obstetrics History Last Filed Vital Signs Vital Sign Reading Time Taken Comments Blood Pressure 100/76 05/06/2025 2:30 PM EDT Pulse 71 05/06/2025 2:30 PM EDT Temperature 36.2 C (97.1 F) 05/06/2025 2:30 PM EDT Respiratory Rate 16 05/06/2025 2:30 PM EDT Oxygen Saturation 99% 05/06/2025 2:30 PM EDT Inhaled Oxygen Concentration - - Weight 78.9 kg (174 lb) 05/06/2025 7:05 AM EDT Height 167.6 cm (5' 6 ) 05/06/2025 7:05 AM EDT Body Mass Index 28.08 05/06/2025 7:05 AM EDT Plan of Treatment Health Maintenance Due Date Last Done Comments Breast Cancer Screening 1974 Colorectal Cancer Screening: Colonoscopy 1974 Cervical Cancer Screening: Pap Smear 12/04/1995 Hepatitis B Vaccines (2 of 2 - CpG 2-dose series) 06/03/2024 05/06/2024 Depression Screening 09/03/2024 HIV Screening 04/16/2025 Hepatitis C Screening 04/16/2025 Social Influencers of Health Screening 04/16/2025 COVID-19 Vaccine ( season) 2025 06/06/2023, 06/23/2022, 08/20/2021 DTaP,Tdap,and Td Vaccines (2 - Td or Tdap) 05/06/2034 05/06/2024 RSV Immunization Adult Patients (1 - 1-dose 75+ series) 2049 Pneumococcal Vaccine: 50+ Years Completed 02/03/2025 Influenza Vaccine Completed 04/24/2025, , 06/06/2023, Additional history exists Zoster Vaccines Completed 04/26/2025, 02/03/2025 HIB Vaccines Aged Out No longer eligi ble based on patient's age to complete this topic HPV Vaccines Aged Out No longer eligi ble based on patient's age to complete this topic Hepatitis A Vaccines Aged Out No long er eligible based on patient's age to complete this topic IPV Vaccines Aged Out No longer eligi ble based on patient's age to complete this topic MMR Vaccines Aged Out No longer eligi ble based on patient's age to complete this topic Meningococcal ACWY Vaccine Aged Out N o longer eligible based on patient's age to complete this topic Meningococcal B Vaccine Aged Out No l onger eligible based on patient's age to complete this topic RSV Immunization Patients Under 20 months Aged Out No longer eligible based on patient's age to complete this topic Varicella Vaccines Aged Out No longer eligible based on patient's age to complete this topic Medical Devices Implanted Type Area Dinkey Engine Firer/Fireman Device Identifier Shelf Expiration Date Model / Serial / Lot Kit Surgiflo W 2000 Units Ster Lyo - Sn/A - [id number] Implanted:Qty : 1 on 05/06/2025 by Ermias Bradley MD at [facility] Hemostasis N/A: Spine Lumbar JNJ [employer] [id number] 08/02/2026 2994 / N/A / [id number] Kit Surgiflo W 2000 Units Ster Lyo - Sn/A - [id number] Implanted:Qty : 1 on 05/06/2025 by Ermias Bradley MD at [facility] Hemostasis N/A: Spine Lumbar JN[employer] [id number] 08/02/2026 2994 / N/A / [id number] Sealant Fibrin Vistaseal 2ml - [id number] - [id number] Implanted:Qty : 1 on 05/06/2025 by Ermias Bradley MD at [facility] Hemostasis N/A: Spine Lumbar [employer] 07/20/2026 VST02 / [id number] / [id number] Screw Jesusita Polyaxial Extended Tab 6.5x45mm - Sn/A - [id number] Implanted:Qty : 4 on 05/06/2025 by Ermias Bradley MD at [facility] Internal and External Fixation N/A: Spine Lumbar REYNA SPINE- K2M 05/06/2030 [id number] / N/A / N/A Bone Graft Spine Infuse Sm - Sn/A - [id number] Implanted:Qty : 1 on 05/06/2025 by Ermias Bradley MD at [facility] [employer]ologics BMP N/A: Spine Lumbar [employer]ANEK [id number] 03/03/2026 [id number] / N/A / [id number] Putty Bone Graft 2.5ml Peptide Enhanced - Sn/A - [id number] Implanted:Qty : 1 on 05/06/2025 by Ermias Bradley MD at [facility] [employer] N/A: Spine Lumbar [employer] [id number] 07/03/2027 700-025 / N/A / [id number] Putty Bone Graft 2.5ml Peptide Enhanced - Sn/A - [id number] Implanted:Qty : 1 on 05/06/2025 by Ermias Bradley MD at [facility] [employer] N/A: Spine Lumbar [employer] [id number] 08/02/2027 700-025 / N/A / [id number] Cage Spinal [id number] 6deg Tritanium Lmbr Titan Lrdtc Plif - Sn/A - [id number] Implanted:Qty : 1 on 05/06/2025 by Ermias Bradley MD at [facility] Spinal Hardware N/A: Spine Lumbar [employer] [id number] 07/07/2029 [id number] / N/A / [id number] Screw Set [place] - Sn/A - [id number] Implanted:Qty : 4 on 05/06/2025 by Ermias Bradley MD at [facility] Spinal Hardware N/A: Spine Lumbar REYNA SPINE- K2M 05/06/2030 [id number] / N/A / N/A Liu Contr Blt/Hex 5.5x40mm - Sn/A - [id number] Implanted:Qty : 2 on 05/06/2025 by Ermias Bradley MD at [facility] Spinal Hardware N/A: Spine Lumbar REYNA SPINE- K2M 05/06/2030 [id number] / N/A / N/A Procedures Procedure Name Priority Date/Time Associated Diagnosis Comments XR LUMBAR SPINE 2-3 VIEWS Routine 05/06/2025 12:29 PM EDT TH AN ENDOTRACHEAL(NO CHARGE) Routine 05/06/2025 9:50 AM EDT WV MENSAH FACETECTOMY & FORAMINOTOMY SINGLE VERTEBRAL SEGMENT LUMBAR 05/06/2025 8:44 AM EDT Other spondylosis with radiculopathy, lumbar region Spondylolisthesis of lumbar region Case Notes C-ARM, JAIMIE TABLE W/PLATES, REYNA CAGE, BMP, DBM, SMS MONITORING 23 HOUR BED WV MENSAH FACETECTOMY/FORAMINOT ARUN DUR POST I-B ARTHRDS LUMBAR SGL VERT SEGM 05/06/2025 8:44 AM EDT Other spondylosis with radiculopathy, lumbar region Spondylolisthesis of lumbar region Case Notes C-ARM, JAIMIE TABLE W/PLATES, REYNA CAGE, BMP, DBM, SMS MONITORING 23 HOUR BED WV ALLOGRAFT MORSELIZED/PLACEMENT OSTEOPROMOTIVE MAT SPINE SURGERY ONLY 05/06/2025 8:44 AM EDT Other spondylosis with radiculopathy, lumbar region Spondylolisthesis of lumbar region Case Notes C-ARM, JAIMIE TABLE W/PLATES, REYNA CAGE, BMP, DBM, SMS MONITORING 23 HOUR BED WV AUTOGRAFT SPINE SURGERY ONLY LOCAL OBTAINED FROM SAME INCISION 05/06/2025 8:44 AM EDT Other spondylosis with radiculopathy, lumbar region Spondylolisthesis of lumbar region Case Notes C-ARM, JAIMIE TABLE W/PLATES, REYNA CAGE, BMP, DBM, SMS MONITORING 23 HOUR BED WV MENSAH FACETECTOMY/FORAMINOT ARUN DUR POST I-B ARTHRDS LUMBAR EA ADD SEGM 05/06/2025 8:44 AM EDT Other spondylosis with radiculopathy, lumbar region Spondylolisthesis of lumbar region Case Notes C-ARM, JAIMIE TABLE W/PLATES, REYNA CAGE, BMP, DBM, SMS MONITORING 23 HOUR BED WV INSTRUMENTATION POSTERIOR NON-SEGMENTAL 05/06/2025 8:44 AM EDT Other spondylosis with radiculopathy, lumbar region Spondylolisthesis of lumbar region Case Notes C-ARM, JAIMIE TABLE W/PLATES, REYNA CAGE, BMP, DBM, SMS MONITORING 23 HOUR BED WV ARTHRDS W POST I-B TECH INCL MENSAH/DISCECTOMY PREP INTERSPACE SINGLE LUMB 05/06/2025 8:44 AM EDT Other spondylosis with radiculopathy, lumbar region Spondylolisthesis of lumbar region Case Notes C-ARM, JAIMIE TABLE W/PLATES, REYNA CAGE, BMP, DBM, SMS MONITORING 23 HOUR BED WV INS I-B BIOMECH DEV TO IV DISC SPACE CONJ W/I-B ARTHRDS EA INTERSPACE 05/06/2025 8:44 AM EDT Other spondylosis with radiculopathy, lumbar region Spondylolisthesis of lumbar region Case Notes C-ARM, JAIMIE TABLE W/PLATES, REYNA CAGE, BMP, DBM, SMS MONITORING 23 HOUR BED COMPLETE BLOOD COUNT Routine 05/06/2025 7:01 AM EDT TYPE AND SCREEN Routine 05/06/2025 7:01 AM EDT VITAMIN D 25 HYDROXY Routine 04/29/2025 10:12 AM EDT Osteoarthritis of spine with radiculopathy, lumbar region COMPREHENSIVE METABOLIC PANEL Routine 04/29/2025 10:12 AM EDT CBC WITH AUTO DIFFERENTIAL Routine 04/29/2025 10:08 AM EDT CBC AND DIFFERENTIAL Routine 04/29/2025 10:08 AM EDT from Last 3 Months Results * XR Lumbar Spine 2-3 Views (05/06/2025 12:29 PM EDT) Anatomical Region Laterality Modality Spine, L-spine Radio Fluoroscop y 05/07/2025 7:42 AM EDT Narrative 05/07/2025 7:44 AM EDT Fluoroscopic spot radiographs obtained during lumbar spine surgery are submitted. No radiologist consultation was requested or provided during this procedure and there is no radiologist professional charge. This report is generated for documentation purposes only. The dose-area product for this procedure was 1.98 mGy*m2. PQRI CPT II G9500 -------- FINAL REPORT -------- Dictated By: Moi Santamaria Dictated Date: 05/07/2025 07:42 ET Assigned Physician: Moi Santamaria Reviewed and Electronically Signed By: Moi Santamaria Signed Date: 05/07/2025 07:44 ET Workstation ID: [id number] Transcribed By: Self Edit Transcribed Date: 05/07/2025 07:42 ET Procedure Note Moi Santamaria MD - 05/07/2025 Fluoroscopic spot radiographs obtained during lumbar spine surgery aresubmitted. No radiologist consultation was requested or provided duringthis procedure and there is no radiologist professional charge. Thisreport is generated for documentation purposes only. The dose-area product for this procedure was 1.98 mGy*m2. PQRI CPT II G9500 -------- FINAL REPORT -------- Dictated By: Moi Santamaria Dictated Date: 05/07/2025 07:42 ET Assigned Physician: Moi Santamaria Reviewed and Electronically Signed By: Moi Santamaria Signed Date: 05/07/2025 07:44 ET Workstation ID: [id number] Transcribed By: Self Edit Transcribed Date: 05/07/2025 07:42 ET us Ermias Bradley MD IMG XR PROCEDURES Final Res ult * TH AN ENDOTRACHEAL(NO CHARGE) (05/06/2025 9:50 AM EDT) Raymond Farrell DO - 05/06/2025 9:50 AM EDT Raymond Gipson DO 05/06/2025 3:26 PM General Information and Staff Patient location during procedure: OR Anesthesiologist: Raymond Gipson DO Other anesthesia staff: JOY Gonzalez Performed: resident/CHENILLE MACHINE OPERATOR/SURAJ and other anesthesia staff Performed by: Sherron Alanis CRNA Authorized by: Raymond Gipson DO Intubation Airway not difficult Urgency: elective Final Airway Details Successful airway: ETT Cuffed: yes Successful intubation technique: direct laryngoscopy Facilitating devices/methods: intubating stylet Endotracheal tube insertion site: oral Blade: Cy Blade size: #3 ETT size (mm): 7.0 Cormack-Lehane Classification: grade I - full view of glottis Placement verified by: capnometry Measured from: lips ETT to lips (cm): 21 Number of attempts at approach: 1Final airway type: endotracheal airway Indications and Patient Condition Indications for airway management: anesthesia Spontaneous Ventilation: absent Sedation level: Yes Preoxygenated: yes Soft Tissue Damage: No Dentition Unchanged: Yes Patient position: sniffing Mask difficulty assessment: 1 - vent by mask Raymond Gipson ANESTHESIA ORDERABLES Edited Re sult - Final * (ABNORMAL) CBC (05/06/2025 7:01 AM EDT) WBC 6.2 4.8 - 10.8 K/mcL LAB HEMETOLOGY METHOD 05/06/2025 7:25 AM EDT [facility] RBC 4.10 3.80 - 4.80 M/mcL LAB HEMETOLOGY METHOD 05/06/2025 7:25 AM [facility] Hemoglobin 11.8 11.5 - 16.0 g/dL LAB HEMETOLOGY METHOD 05/06/2025 7:25 AM [facility] Hematocrit 37.5 35.0 - 47.0 % LAB HEMETOLOGY METHOD 05/06/2025 7:25 AM [facility] MCV 91.7 79.0 - 98.0 FL LAB HEMETOLOGY METHOD 05/06/2025 7:25 AM [facility] MCH 28.9 27.0 - 32.0 pcg LAB HEMETOLOGY METHOD 05/06/2025 7:25 AM [facility] MCHC 31.5(L) 32.0 - 37.0 g/dL LAB HEMETOLOGY METHOD 05/06/2025 7:25 AM [facility] RDW 13.3 11.0 - 15.0 % LAB HEMETOLOGY METHOD 05/06/2025 7:25 AM [facility] Platelets 323 130 - 400 K/mcL LAB HEMETOLOGY METHOD 05/06/2025 7:25 AM [facility] MPV 10.1 7.0 - 11.0 FL LAB HEMETOLOGY METHOD 05/06/2025 7:25 AM [facility] NRBC 0.0 <1.0 % LAB HEMETOLOGY METHOD 05/06/2025 7:25 AM EDT [facility] NRBC Absolute 0.00 <0.10 K/mcL LAB HEMETOLOGY METHOD 05/06/2025 7:25 AM EDT [facility] Blood Venous blood specimen / Unknown Venipuncture / Unknown 05/06/2025 7:01 AM EDT 05/06/2025 7:09 AM EDT [facility] LAB BLOOD ORDERABLES Final Resu lt [facility] [address] [place] [address], [place] [phone] * Type and screen (05/06/2025 7:01 AM EDT) Pathologist [facility] A 05/06/2025 8:15 AM EDT [facility] Rh Type Positive 05/06/2025 8:15 AM EDT [facility] Antibody Screen Negative 05/06/2025 8:15 AM EDT [facility] Blood Venous blood specimen / Unknown Venipuncture / Unknown 05/06/2025 7:01 AM EDT 05/06/2025 7:09 AM EDT [facility] BLOOD BANK TEST ORDERABLES Final Result [facility] [address] [place] [address], [place] [phone] * (ABNORMAL) Vitamin D 25 hydroxy (04/29/2025 10:12 AM EDT) Vit D, 25-Hydroxy 24.2(L) 30.0 - 80.0 ng/mL LAB CHEMISTRY METHOD 04/29/2025 2:21 PM EDT [facility] Blood Venous blood specimen / Unknown Venipuncture / Unknown 04/29/2025 10:12 AM EDT 04/29/2025 10:45 AM EDT us Ermias Bradley MD LAB BLOOD ORDERABLES Final Result [facility] [address] [place] [address], * Comprehensive metabolic panel (04/29/2025 10:12 AM EDT) Sodium 142 133 - 145 mmol/L LAB CHEMISTRY METHOD 04/29/2025 1:17 PM [facility] Potassium 3.9 3.5 - 5.5 mmol/L LAB CHEMISTRY METHOD 04/29/2025 1:17 PM [facility] Chloride 107 96 - 110 mmol/L LAB CHEMISTRY METHOD 04/29/2025 1:17 PM [facility] CO2 31 21 - 32 mmol/L LAB CHEMISTRY METHOD 04/29/2025 1:17 PM [facility] Anion Gap 4 3 - 11 LAB CHEMISTRY METHOD 04/29/2025 1:17 PM [facility] Glucose 73 70 - 100 mg/dL LAB CHEMISTRY METHOD 04/29/2025 1:17 PM [facility] BUN 11 5 - 25 mg/dL LAB CHEMISTRY METHOD 04/29/2025 1:17 PM [facility] Creatinine 0.64 0.50 - 1.10 mg/dL LAB CHEMISTRY METHOD 04/29/2025 1:17 PM [facility] eGFR 108 >=60 mL/min/1. 73m2 LAB CHEMISTRY METHOD 04/29/2025 1:17 PM [facility] Comment:Calculation based on the Chronic Kidney Disease Epidemiology Collaboration (CKD-EPI) equation refit without adjustment for race. BUN/Creatinine Ratio 17.2 LAB CHEMISTRY METHOD 04/29/2025 1:17 PM EDT [facility] Calcium 9.6 8.5 - 10.5 mg/dL LAB CHEMISTRY METHOD 04/29/2025 1:17 PM [facility] AST (SGOT) 18 10 - 42 unit/L LAB CHEMISTRY METHOD 04/29/2025 1:17 PM [facility] ALT (SGPT) 24 10 - 60 unit/L LAB CHEMISTRY METHOD 04/29/2025 1:17 PM [facility] Alkaline Phosphatase 87 42 - 121 unit/L LAB CHEMISTRY METHOD 04/29/2025 1:17 PM [facility] Total Protein 6.8 6.0 - 8.0 g/dL LAB CHEMISTRY METHOD 04/29/2025 1:17 PM [facility] Albumin 3.8 3.2 - 5.0 g/dL LAB CHEMISTRY METHOD 04/29/2025 1:17 PM [facility] Total Bilirubin 0.4 0.0 - 1.4 mg/dL LAB CHEMISTRY METHOD 04/29/2025 1:17 PM [facility] Blood Venous blood specimen / Unknown Venipuncture / Unknown 04/29/2025 10:12 AM EDT 04/29/2025 10:45 AM EDT Ermias Bradley MD LAB BLOOD ORDERABLES Final Result [facility] [address] [place] [address], * CBC auto differential (04/29/2025 10:08 AM EDT) WBC 5.8 4.8 - 10.8 K/mcL LAB HEMETOLOGY METHOD 04/29/2025 11:10 AM EDT [facility] RBC 4.30 3.80 - 4.80 M/mcL LAB HEMETOLOGY METHOD 04/29/2025 11:10 AM [facility] Hemoglobin 12.7 11.5 - 16.0 g/dL LAB HEMETOLOGY METHOD 04/29/2025 11:10 AM [facility] Hematocrit 39.5 35.0 - 47.0 % LAB HEMETOLOGY METHOD 04/29/2025 11:10 AM [facility] MCV 91.0 79.0 - 98.0 FL LAB HEMETOLOGY METHOD 04/29/2025 11:10 AM [facility] MCH 29.3 27.0 - 32.0 pcg LAB HEMETOLOGY METHOD 04/29/2025 11:10 AM [facility] MCHC 32.2 32.0 - 37.0 g/dL LAB HEMETOLOGY METHOD 04/29/2025 11:10 AM [facility] RDW 12.8 11.0 - 15.0 % LAB HEMETOLOGY METHOD 04/29/2025 11:10 AM [facility] Platelets 315 130 - 400 K/mcL LAB HEMETOLOGY METHOD 04/29/2025 11:10 AM [facility] MPV 10.3 7.0 - 11.0 FL LAB HEMETOLOGY METHOD 04/29/2025 11:10 AM [facility] NRBC 0.0 <1.0 % LAB HEMETOLOGY METHOD 04/29/2025 11:10 AM [facility] NRBC Absolute 0.00 <0.10 K/mcL LAB HEMETOLOGY METHOD 04/29/2025 11:10 AM [facility] Neutrophils Relative 57.5 % LAB HEMETOLOGY METHOD 04/29/2025 11:10 AM [facility] Lymphocytes Relative 32.1 % LAB HEMETOLOGY METHOD 04/29/2025 11:10 AM [facility] Monocytes Relative 7.7 % LAB HEMETOLOGY METHOD 04/29/2025 11:10 AM EDT [facility] Eosinophils Relative 1.4 % LAB HEMETOLOGY METHOD 04/29/2025 11:10 AM [facility] Basophils Relative 1.0 % LAB HEMETOLOGY METHOD 04/29/2025 11:10 AM EDT [facility] Immature Granulocytes Relative 0.3 % LAB HEMETOLOGY METHOD 04/29/2025 11:10 AM EDT [facility] Neutrophils Absolute 3.34 1.50 - 7.00 K/mcL LAB HEMETOLOGY METHOD 04/29/2025 11:10 AM EDT [facility] Lymphocytes Absolute 1.87 1.00 - 5.00 K/mcL LAB HEMETOLOGY METHOD 04/29/2025 11:10 AM [facility] Monocytes Absolute 0.45 0.20 - 1.00 K/mcL LAB HEMETOLOGY METHOD 04/29/2025 11:10 AM [facility] Eosinophils Absolute 0.08 0.00 - 0.50 K/mcL LAB HEMETOLOGY METHOD 04/29/2025 11:10 AM [facility] Basophils Absolute 0.06 0.00 - 0.20 K/mcL LAB HEMETOLOGY METHOD 04/29/2025 11:10 AM T [facility] Immature Granulocytes Absolute 0.02 0.00 - 0.03 K/mcL LAB HEMETOLOGY METHOD 04/29/2025 11:10 AM T [facility] Blood Venous blood specimen / Unknown Venipuncture / Unknown 04/29/2025 10:08 AM EDT 04/29/2025 10:44 AM EDT us Ermias Bradley MD LAB BLOOD ORDERABLES Final Result [facility] [address] [place] [address], [place] [phone] from Last 3 Months Insurance [place] [address] WC GENERIC Advance Directives * Full Code - Default (Latest Code Status on File) Date Activated Date Inactivated Comments 05/06/2025 9:04 AM 05/06/2025 7:38 PM This is order is used when code status has not been discussed with the patient, or code status is otherwise unknown/unconfirmed To update the patient's code status, place a code status order. Do not modify or discontinue any currently active code status orders.
== END 2025-06-08 09:02 | disposition home or self-care (01) ==
LOC: HO.HMCH 08:25
PROVIDERS: PCP Internal Medicine; Visit Provider Internal Medicine
DX: Z00.00 Encounter for general adult medical examination without abnormal findings (principal); F32.0 Major depressive disorder, single episode, mild; G47.00 Insomnia, unspecified

== ENCOUNTER → 2025-06-08 08:25 | Outpatient (BNVA) | payer OTHER, SELFPAY | PROVIDERS: PCP Internal Medicine; Visit Provider Internal Medicine | DX: Z00.00 Encounter for general adult medical examination without abnormal findings (principal); F32.0 Major depressive disorder, single episode, mild; G47.00 Insomnia, unspecified; E03.9 Hypothyroidism, unspecified | CPT/HCPCS: 96127; 99212; 99396 ==

== ENCOUNTER 2025-08-10 14:29 | Outpatient (REF) | payer OTHER, SELFPAY ==
[2025-08-10 15:46] LABS: Appearance Urine Cloudy; Glucose Urine UA Negative (Negative); PH 5.5 (5.0-9.0); Specific Gravity - Urine 1.015 (1.005-1.025); UMIC TRIGGER UACC YES
[2025-08-10 15:57] LABS: UACC Culture Trigger YES
--- OUTSIDE RECORDS SUMMARY | 2025-08-10 23:36 | XMS_ITS | Clinical Summary ---
Author Organization [facility] Address [address] [place] [address] Phone Care Team Providers Care Dental Hygienist Mobile Coordinator Name Role Phone Unavailable Primary Care Provider Unavailabl e Allergies No known active allergies Medications levothyroxine (SYNTHROID, LEVOTHROID) 25 mcg tablet Take by mouth 1 (one) time each day before breakfast. Active senna (SENOKOT) 8.6 mg tablet Take 1 tablet (8.6 mg total) by mouth 1 (one) time each day if needed for constipation (bedtime prn). 30 each 5 05/06/20 26 Active methocarbamoL (ROBAXIN) 750 mg tablet Take 1 tablet (750 mg total) by mouth 3 (three) times a day if needed for muscle spasms for up to 14 days. 42 each 5 Active Active Problems Problem Noted Date Diagnosed Date Lumbar radiculopathy 05/06/2025 Surgical History Surgery Date Site/Laterality Comments CARPAL [...] on file Sexual Orientation Not on file Last Filed Vital Signs Vital Sign Reading [...] this topic Medical Devices Implanted Type Area Development Spec Device Identifier Shelf Expiration Date Model / Serial / Lot Kit Surgiflo W 2000 Units Ster Lyo - Sn/A - [id number] Implanted:Qty : 1 on 05/06/2025 by Ermias Bradley MD at [facility] Hemostasis N/A: Spine Lumbar [employer] [id number] 08/02/2026 2994 / N/A / [id number] Kit Surgiflo W 2000 Units Ster Lyo - Sn/A - [id number] Implanted:Qty : 1 on 05/06/2025 by Ermias Bradley MD at [facility] Hemostasis N/A: Spine Lumbar [employer] [id number] 08/02/2026 2994 / N/A / [id number] Sealant Fibrin Vistaseal 2ml - [id number] - [id number] Implanted:Qty : 1 on 05/06/2025 by Ermias Bradley MD at [facility] Hemostasis N/A: Spine Lumbar [employer] 07/20/2026 VST02 / [id number] / [id number] Screw Jesusita Polyaxial Extended Tab 6.5x45mm - Sn/A - [id number] Implanted:Qty : 4 on 05/06/2025 by Ermias Bradley MD at [facility] Internal and External Fixation N/A: Spine Lumbar REYNA SPINE- K2M 05/06/2030 [id number] / N/A / N/A Bone Graft Spine Infuse Sm - Sn/A - [id number] Implanted:Qty : 1 on 05/06/2025 by Ermias Bradley MD at [facility] Orthobiologics BMP N/A: Spine Lumbar [employer]ANEK [id number] 03/03/2026 [id number] / N/A / [id number] Putty Bone Graft 2.5ml Peptide Enhanced - Sn/A - [id number] Implanted:Qty : 1 on 05/06/2025 by Ermias Bradley MD at [facility] [employer] N/A: Spine Lumbar [employer] [id number] 07/03/2027 700-025 / N/A / [id number] Putty Bone Graft 2.5ml Peptide Enhanced - Sn/A - [id number] Implanted:Qty : 1 on 05/06/2025 by Ermias Bradley MD at [facility] [employer] N/A: Spine Lumbar [employer] [id number] 08/02/2027 700-025 / N/A / [id number] Cage Spinal [id number] 6deg Tritanium Lmbr Titan Lrdtc Plif - Sn/A - [id number] Implanted:Qty : 1 on 05/06/2025 by Ermias Bradley MD at [facility] Spinal Hardware N/A: Spine Lumbar [employer] [id number] 07/07/2029 [id number] / N/A / [id number] Screw Set [place] - Sn/A - [id number] Implanted:Qty : 4 on 05/06/2025 by Ermias Bradley MD at [facility] Spinal Hardware N/A: Spine Lumbar REY[employer] SPINE- K2M 05/06/2030 [id number] / N/A / N/A Liu Contr Blt/Hex 5.5x40mm - Sn/A - [id number] Implanted:Qty : 2 on 05/06/2025 by Ermias Bradley MD at [facility] Spinal Hardware N/A: Spine Lumbar REY[employer] SPINE- K2M 05/06/2030 [id number] / N/A / N/[place] [id number] GENERIC Advance Directives * Full Code - [...]
== END 2025-08-10 14:30 | disposition home or self-care (01) ==
LOC: HO.LAB 14:29
PROVIDERS: PCP Internal Medicine; Visit Provider Internal Medicine
DX: R39.9 Unspecified symptoms and signs involving the genitourinary system (principal)
CPT/HCPCS: 81001; 87086; 87088; 87186

== ENCOUNTER 2025-08-12 10:40 | Outpatient (AMB) | payer OTHER, SELFPAY ==
[2025-08-12 10:44] VITALS: BP 118/72; PULSE 83; O2SAT 98; BMI 26.5
--- NOTE | 2025-08-12 10:44 | A.OFFPC_ITS ---
Vital Signs 08/12/25 10:44 Height 5 ft 6 in Weight 164 lb BMI 26.5 BP 118/72 Blood Pressure Location Lt brachial Position Sitting Pulse 83 Pulse Source Pulse Oximeter Pulse Oximetry (%) 98 Oxygen Delivery Method Room Air Intake Visit Reasons: vaginal bleeding Animation Camera Operator Required: No Accompanied by: Self / Same As Patient Allergies No Known Allergies (No Known Allergies*) Allergy (Verified 08/12/25 10:57) Medication List - Last Reconciled 08/12/25 by Danay Birmingham MD acetaminophen (Tylenol Extra Strength) 500 mg PO Q6H PRN diclofenac sodium 3% 1 appl topical BID fluconazole 150 mg PO Q3D 2 doses gabapentin 100 mg PO TID levothyroxine 75 mcg PO DAILY lidocaine 5% (Lidoderm) 1 patch topical DAILY PRN MDD remove after 12 hours methocarbamol 750 mg PO BEDTIME nitrofurantoin macrocrystal 100 mg PO BID 5 days tirzepatide (weight loss) (Zepbound) 15 mg (0.5 mL) subcut QWEEK 4 weeks trazodone 50 mg PO BEDTIME PRN 90 days Tobacco use date assessed: 06/08/25 Dental Screening Dental Screen Date: 06/08/25 HPI HPI Comments History of Present Illness Details The patient is a 49-year-old female presenting for review of urine culture results. She has a history of a hysterectomy with ovarian conservation and previously has not followed up with a operations and maintenance technician, as she has no cervix and does not require a Pap smear. Approximately one week after a recent episode of unprotected sexual intercourse, the patient developed symptoms of a urinary tract infection. She states that she had been sexually inactive for about a year prior to this. The patient has a history of hypothyroidism for which she takes Levothyroxine 75 mcg. She also reports experiencing symptoms such as dizziness and headaches when eating bread and pasta, raising suspicion for celiac disease. She also has history of anemia in the past. Her current medications include Tylenol, fluconazole, gabapentin, levothyroxine 75 mcg, methocarbamol, nitrofurantoin, Zepbound 15 mg, and trazodone. She is using Zepbound for weight management and has a BMI of 26.4, which is close to the normal range. A colonoscopy has been previously discussed and referred. [facility] Medical History (Updated 08/12/25 @ 12:12 by Danay Birmingham MD) Fusion of lumbar spine Physical exam Pre-op evaluation Trigger finger, left middle finger URI (upper respiratory infection) Muscle spasm Class 1 obesity with body mass index (BMI) of 31.0 to 31.9 in adult Vitamin D deficiency Vitamin A deficiency Panniculitis Intestinal malabsorption following gastrectomy Overweight Hypothyroidism Surgical History S/P laparoscopic sleeve gastrectomy History of total abdominal hysterectomy and bilateral salpingo-oophorectomy History of carpal tunnel release Family History Father Thyroid disease Mother Hypertension Paternal Aunt Breast cancer Paternal Grandfather Hypertension Diabetes CVD (cardiovascular disease) Stroke Social History Household Members: Children Housing: House Do you presently have visiting nurse or other home services: No Alcohol intake: current Alcohol intake frequency: holidays/special occasions only Alcohol type: wine and hard liquor Patient Tobacco Use Status: Never used Tobacco Tobacco use type: Cigarette e-Cigarette/Vaping Use: Never Used Second Hand Smoke Exposure: No Advance Directives Date on File: 04/04/22 service: No Current occupational status: unemployed Cognitive needs: No Hearing needs: No Vision needs: Yes Questionnaire Thrive Questionnaire Date Thrive assessed: 06/01/25 I am a: Patient What is your living situation today?: I have a steady place to live Within the past 12 months, did the food you bought not last and you didn't have the money to get more?: Often true Within the past 12 months, did you worry whether your food would run out before you got money to buy more?: Often true Do you have trouble paying for medicines?: Yes Do you have trouble getting transportation to medical appointments?: No Do you have trouble paying your heating and electricity bill?: Yes Do you have trouble taking care of your child, family member or friend?: No Do you have trouble with day-to-day activities such as bathing, preparing meals, shopping, managing finances, etc.?: No Are you currently unemployed and looking for a job?: I choose not to answer this question Are you interested in more education?: I choose not to answer this question Currently or been in a relationship where the following occur: Controlled Financially THRIVE Score: 4 SEYMOUR-7 AMB Questionnaire SEYMOUR-7 Date SEYMOUR - 7 assessed: 11/17/24 Source: Developed by Drs. Marquise Christy, Chelsey Gore, Rolando Espino and colleagues, with an educational jose alejandro from [employer]. Review of Systems Const All systems reviewed & are unremarkable except as noted in HPI and below Resp Denies cough Physical exam (Primary Care) Vital Signs: Last Vital Signs Pulse 83 08/12/25 10:44 BP 118/72 08/12/25 10:44 Pulse Ox 98 08/12/25 10:44 Oxygen Delivery Method Room Air 08/12/25 10:44 BMI result Body Mass Index 26.5 Tobacco/Smoking Status: Tobacco use Status Tobacco use date assessed 06/08/25 08/12/25 10:48 Patient Tobacco Use Status Never used Tobacco 08/12/25 10:48 Tobacco use type Cigarette 08/12/25 10:48 e-Cigarette/Vaping Use Never Used 08/12/25 10:48 Thrive Assessment: Date of Thrive Assessment Date Thrive assessed 06/01/25 08/12/25 10:48 Currently or been in a relationship where the following occur: Controlled Financially Resp Effort & Inspection: normal respiratory effort Auscultation: clear to auscultation bilaterally Cardio Jugular venous distension: no JVD Rate: regular rate Rhythm: regular rhythm Heart sounds: S1 normal heart sound present and S2 normal heart sound present Extrem General: Yes full ROM Coding Level of Care Code Est Pt Level 4 (60186) Diagnoses UTI (urinary tract infection) N39.0 Vaginal candidiasis B37.31 Hypothyroidism, unspecified type E03.9 Hypothyroidism type: unspecified Anemia D64.9 Time Spent (min) 22 Assessment & Plan Assessment & Plan (1) UTI (urinary tract infection): Code(s): N39.0 - Urinary tract infection, site not specified Category: Medical (2) Vaginal candidiasis: Code(s): B37.31 - Acute candidiasis of vulva and vagina Category: Medical (3) Hypothyroidism: Code(s): E03.9 - Hypothyroidism, unspecified Category: Medical Qualifiers: Hypothyroidism type: unspecified Qualified Code(s): E03.9 - Hypothyroidism, unspecified (4) Anemia: Code(s): D64.9 - Anemia, unspecified Category: Medical Plan Plan 1. Urinary Tract Infection The patient's final urine culture revealed an E. coli infection resistant to all oral antibiotics, necessitating intravenous antibiotic treatment. The patient was advised to go to the emergency department for this treatment to prevent complications such as pyelonephritis or sepsis. She was instructed to discontinue nitrofurantoin as it is ineffective against this resistant strain. 2. Screening For Sexually Transmitted Infections Given the recent unprotected sexual contact, a comprehensive screening for sexually transmitted infections (STIs) was ordered. This includes urine testing for chlamydia and gonorrhea, along with blood tests for HIV, syphilis, and a hepatitis profile. The patient was informed that these tests can be done immediately as fasting is not required. She was also advised that a gynecology referral would be needed for a vaginal wet mount to test for Trichomonas, which cannot be done in the primary care office. 3. Dyspepsia To investigate the patient's gastrointestinal symptoms, including dizziness and headaches, particularly after consuming bread and pasta, lab tests for celiac disease were ordered. 4. Anemia Repeat CBC. 5. Hypothyroidism Continue levothyroxine. Monitor TSH. Orders: Orders Complete Blood Count Auto Diff Today D64.9 - Anemia, unspecified Thyroid Stimulating Hormone Today E03.9 - Hypothyroidism, unspecified Celiac Diagnostic Gliadin TTG Today D64.9 - Anemia, unspecified Hepatitis A,B,C Profile Today Z11.3 - Encounter for screening for infections with a predominantly sexual mode of transmission IRON PROFILE Today D64.9 - Anemia, unspecified HIV Ab/Ag Today Z11.4 - Encounter for screening for human immunodeficiency virus [HIV] Syphilis Screen Today Z11.3 - Encounter for screening for infections with a predominantly sexual mode of transmission CT NG by PCR Urine Today Z11.3 - Encounter for screening for infections with a predominantly sexual mode of transmission Vitamin B12 and Folate Today E53.8 - Deficiency of other specified B group vitamins Vitamin D 25-OH Total Today E55.9 - Vitamin D deficiency, unspecified Referrals HRIS ADMINISTRATOR Referral Z11.3 - Encounter for screening for infections with a predominantly sexual mode of transmission
== END 2025-08-12 11:17 | disposition home or self-care (01) ==
LOC: HO.HMCH 10:41
PROVIDERS: PCP Internal Medicine; Visit Provider Internal Medicine
DX: N39.0 Urinary tract infection, site not specified (principal); B37.31 Acute candidiasis of vulva and vagina; E03.9 Hypothyroidism, unspecified; D64.9 Anemia, unspecified

== ENCOUNTER 2025-08-12 10:40 | Outpatient (REF) | payer OTHER, SELFPAY ==
[2025-08-12 11:36] LABS: MANUAL DIFF FLAG NO
[2025-08-12 11:53] LABS: Hematocrit 42.6 % (37.0-47.0); Hemoglobin 13.5 g/dl (12.0-16.0); Imm Gran Abs Auto 0.03 X10*3/uL (0.00-0.03); Imm Gran Pct Auto 0.4 % (0.0-0.4); Lymphocytes Absolute Auto 1.9 X10*3/uL (1.2-4.9); Mean Corpuscular HGB Conc 31.7 g/dl (31.0-35.0); Mean Corpuscular Hemoglobin 29.4 pg (27.0-33.0); Mean Corpuscular Volume 92.8 fL (80.0-98.0); NRBC Abs Auto 0.000 X10*3/uL (0.0-0.012); NRBC Pct Auto 0.0 /100WBC (0.0-0.2); Platelet Count 391 X10*3/uL (160-400); Red Blood Count 4.59 X10*6/uL (4.20-5.50); White Blood Count 7.4 X10*3/uL (4.8-10.8)
[2025-08-12 12:10] LABS: Appearance Urine Clear; Glucose Urine UA Negative (Negative); PH 6.0 (5.0-9.0); Specific Gravity - Urine 1.020 (1.005-1.025); UMIC TRIGGER UACC YES
[2025-08-12 12:15] LABS: UACC Culture Trigger YES
[2025-08-12 12:49] LABS: Iron 65 mcg/dL (30-160); Percent Iron Saturation 22 % (15-50); Total Iron Binding Capacity 292 mcg/dL (228-428); Unsaturated Iron Binding 227 ug/dL
[2025-08-12 12:58] LABS: Syphilis Screen Nonreactive (Nonreactive)
[2025-08-12 13:02] LABS: HBS Num1 1.58 mIU/mL (0-7.99); HBc Num1 0.10 S/CO (0.00-0.79); HBsAGNum1 0.36 S/CO (0.00-0.99); HIV Num 1 0.05 S/CO (0.00-0.99); Hepatitis A Antibody IgM 0.24 Index (0-0.79); Hepatitis B Surface Antigen Negative (Negative); ~HepC Num1 0.12 S/CO (0.00-0.79); ~Hepatitis A Antibody IgM Nonreactive (Nonreactive); ~Hepatitis B Surface Antibody NONREACTIVE (Nonreactive); ~Hepatitis C Antibody Nonreactive (Nonreactive)
[2025-08-12 13:09] LABS: Thyroid Stimulating Hormone 1.27 uIU/mL (0.32-4.0)
[2025-08-12 13:13] LABS: Folate 11.2 ng/mL (> or = 4.0); Vitamin B12 900 pg/mL (200-900)
[2025-08-12 13:29] LABS: CT PCR Urine NOT DETECTED (Not Detect.); NG PCR Urine NOT DETECTED (Not Detect.)
[2025-08-13 14:49] LABS: Immunoglobulin A 398 mg/dL (47-310); Transglutaminase Ab IgG <1.0 U/mL
== END 2025-08-12 10:41 | disposition home or self-care (01) ==
LOC: HO.LAB 10:40
PROVIDERS: PCP Internal Medicine; Visit Provider Internal Medicine
DX: Z11.4 Encounter for screening for human immunodeficiency virus [HIV] (principal); Z11.3 Encounter for screening for infections with a predominantly sexual mode of transmission; E53.8 Deficiency of other specified B group vitamins; D64.9 Anemia, unspecified; E03.9 Hypothyroidism, unspecified; E55.9 Vitamin D deficiency, unspecified; R39.9 Unspecified symptoms and signs involving the genitourinary system; N39.0 Urinary tract infection, site not specified; B37.31 Acute candidiasis of vulva and vagina
CPT/HCPCS: 81001; 81003; 82306; 82607; 82746; 82784; 83540; 84443; 85025; 86258; 86364; 86704; 86706; 86709; 86780; 86803; 87086; 87340; 87389; 87491; 87591; 99212

== ENCOUNTER 2025-08-12 11:42 | Emergency (ER) | payer OTHER, SELFPAY ==
[2025-08-12 12:14] VITALS: BP 126/79; PULSE 90; RESP 18; TEMP 36.4; O2SAT 97; BMI 26.4
--- NOTE | 2025-08-12 12:27 | ED.FEMALEGU ---
HPI - Female Genitourinary General Chief complaint: Urogenital-Female Stated complaint: bacteria Time Seen by Provider: 08/12/25 14:06 History of Present Illness ED Provider: Godwin Mensah MD HPI Narrative: 49-year-old female who has been on several days of nitrofurantoin adherent with the medication still having burning dysuria and started developing some vaginal itching no fever or systemic symptoms Related Data Previous Rx's ?Medication ?Instructions ?Recorded acetaminophen 500 mg tablet 500 mg PO Q6H PRN fever or pain 09/10/23 (Tylenol Extra Strength) #14 tabs diclofenac sodium 3 % topical gel 1 appl topical BID #100 grams 11/14/23 levothyroxine 75 mcg tablet 75 mcg PO DAILY #90 tabs 01/31/25 lidocaine 5 % topical patch 1 patch topical DAILY PRN pain #30 04/14/25 (Lidoderm) ea gabapentin 100 mg capsule 100 mg PO TID #90 caps 04/27/25 trazodone 50 mg tablet 50 mg PO BEDTIME PRN sleep 90 days 06/08/25 #90 tabs methocarbamol 750 mg tablet 750 mg PO BEDTIME #30 tabs 07/29/25 tirzepatide (weight loss) 15 15 mg (0.5 mL) subcut QWEEK 4 08/10/25 mg/0.5 mL subcutaneous pen weeks #2 mL injector (Zepbound) fluconazole 150 mg tablet 150 mg PO Q3D 2 doses #2 tabs 08/11/25 nitrofurantoin macrocrystal 100 mg 100 mg PO BID 5 days #10 caps 08/11/25 capsule cefpodoxime 200 mg tablet 200 mg PO BID 10 days #20 tabs 08/12/25 fluconazole 150 mg tablet 150 mg PO Q3D 2 doses #2 tabs 08/13/25 Allergies Allergy/AdvReac Type Severity Reaction Status Date / Time No Known Allergies (No Known Allergy Verified 08/12/25 12:18 Allergies*) [facility] Past Medical History Medical History Fusion of lumbar spine Physical exam Pre-op evaluation Trigger finger, left middle finger URI (upper respiratory infection) Muscle spasm Class 1 obesity with body mass index (BMI) of 31.0 to 31.9 in adult Vitamin D deficiency Vitamin A deficiency Panniculitis Intestinal malabsorption following gastrectomy Overweight Hypothyroidism Surgical History S/P laparoscopic sleeve gastrectomy History of total abdominal hysterectomy and bilateral salpingo-oophorectomy History of carpal tunnel release Family History Family History Father Thyroid disease Mother Hypertension Paternal Aunt Breast cancer Paternal Grandfather Hypertension Diabetes CVD (cardiovascular disease) Stroke Social History Social History Household Members: Children Housing: House Do you presently have visiting nurse or other home services: No Alcohol intake: current Alcohol intake frequency: holidays/special occasions only Alcohol type: wine and hard liquor Patient Tobacco Use Status: Never used Tobacco Tobacco use type: Cigarette e-Cigarette/Vaping Use: Never Used Second Hand Smoke Exposure: No Advance Directives: Yes Advance Directives on File: Yes Advance Directives Date on File: 04/04/22 Do you have a plan to hurt others: No Plan service: No Current occupational status: unemployed Cognitive needs: No Hearing needs: No Vision needs: Yes Physical Exam Exam: Exam: EXAM: Gen: Alert, awake, well appearing, well hydrated. Head: Atraumatic Eyes: Anicteric, Normal conjunctiva. ENT: Moist mucosa, no pallor. ? Neck: Supple. Skin: ?No observable rash or bruising on exposed or examined skin Respiratory: Breathing comfortably, No distress.Clear to auscultation bilaterally, symmetric chest expansion, No wheeze, rales, ronchi. Cardiovascular: Regular rate and rhythm. No murmurs or rub. Well perfused periphery, warm extremities. No edema. ? Abdominal: No focal tenderness. Soft, no objective distension. No palpable masses or obvious organomegaly. ?No guarding, no rebound tenderness or other peritoneal findings. : No flank tenderness. Neuro: Alert. Gross movement of all extremities intact. ? Psych: Calm. Cooperative. MSK: No grossly visible deformity. Vital signs: See flowsheet Vital Signs: Vital Signs: Last Vital Signs Temp 97.6 F 08/12/25 15:05 Pulse 90 08/12/25 15:05 Resp 18 08/12/25 15:05 BP 126/79 08/12/25 15:05 Pulse Ox 97 08/12/25 15:05 O2 Del Method Room Air 08/12/25 15:05 BMI result Body Mass Index 26.4 Course Course Course Narrative: This is an RME: Additional HPI, ROS, PE not included below will be deferred to primary provider. RME assessment and note performed by: Misa Berman PA-C This is a 49-year-old female, with a past medical history of hypothyroidism,who presents emergency department with concerns of urinary symptoms. Patient reports that her urine sample grew E coli, and was told that she needs to report to the emergency room as she needs IV antibiotics. She is not here with urine culture to reflect that. Urine culture on chart shows only sensitive to gentamicin Plan: labs, UA, further ER evaluation needed. Medications Administered Discontinued Medications Generic Name Dose Route Start Last Admin Trade Name Freq PRN Reason Stop Dose Admin Ceftriaxone Sodium 2 gm/ 50 mls @ 100 mls/hr 08/12/25 13:50 08/12/25 15:05 Sodium Chloride IV 08/12/25 14:19 Infused ONCE ONE Infusion Medical Decision Making Medical Decision Making MDM Narrative: Medical Decision Makin-year-old female with persistent dysuria urine culture is being rerun by the lab after I discussed the case with them and they had possible erroneous resistance pattern tube Kassi panel patient has no systemic symptoms looks well afebrile no leukocytosis. She sounds like she may have vaginal candidiasis I will treat her empirically with fluconazole x1 50 once and give a single dose of IV ceftriaxone which the preliminary culture showed sensitivity to after my discussion with the staff in microbiology lab. Discharge on 3rd generation oral cephalosporin strict return precautions provided she understands Preliminary Favored Differential Diagnosis: UTI, cystitis, resistant UTI among additional considered etiologies Testing Interpreted Independently: ?See below for details Radiology or Lab testing Results Reviewed: ?See below for details Consults: ?See below for details Independent Historians/External Chart Reviews: ?See below for details Social Determinants of Health Impacting MDM/Planning: ?See below for details Prelim MICRO OF 155PM ON 08/12: Organism 1 Escherichia coli Quant > 100,000 cfu/mL E coli M.I.C. RX --------- --- Ampicillin >=32 R Ciprofloxacin 1 R Gentamicin <=1 S Nitrofurantoin >=512 R Trimethoprim/Sulfamethoxazole >=320 R __ GIVEN THAT THIS WAS AN UNUSUAL RESISTANCE PATTERN I SPOKE DIRECTLY TO MICROBIOLOGY STAFF WHO TOLD ME THAT THE PRELIMINARY RESISTANCE PATTERN SHOWED CARBAPENEM RESISTANCE BUT CEFTRIAXONE SUSCEPTIBILITY SO THEY THOUGHT THAT WAS UNLIKELY AND UNUSUAL SO THEY ARE REPEATING IT BUT THAT HAS NOT YET RESULTED. GIVEN THE PATIENT HAS NO SYSTEMIC TOXICITY FEVER, HYPOTENSION OR ELEVATED LACTATE AND BLOOD CULTURES HAS BEEN DRAWN IT IS REASONABLE TO GIVE THE PATIENT SINGLE DOSE OF CEFTRIAXONE DISCHARGE HER ON A 3RD GENERATION CEPHALOSPORIN UNTIL FULL CULTURE RETURNS. IT WOULD NOT BE UNREASONABLE TO REPEAT HER CULTURE HERE OF THE URINE. Lab Data 08/12/25 12:46 08/12/25 12:46 Labs: Lab Results 08/12/25 08/12/25 Range/Units 12:46 12:49 WBC 7.7 (4.8-10.8) X10*3/uL RBC 4.69 (4.20-5.50) X10*6/uL Hgb 13.8 (12.0-16.0) g/dl Hct 43.7 (37.0-47.0) % MCV 93.2 (80.0-98.0) fL MCH 29.4 (27.0-33.0) pg MCHC 31.6 (31.0-35.0) g/dl RDW 13.4 (11.0-16.0) % Plt Count 378 (160-400) X10*3/uL MPV 10.0 (9.4-12.3) fL Immature Gran % (Auto) 0.1 (0.0-0.4) % Neut % (Auto) 64.2 (45-73) % Lymph % (Auto) 26.7 (20-40) % [place] % (Auto) 7.0 (2-11) % Eos % (Auto) 1.2 (0-4) % Baso % (Auto) 0.8 (0-2) % Lymph # (Auto) 2.1 (1.2-4.9) X10*3/uL [place] # (Auto) 0.5 (0.1-1.2) X10*3/uL Eos # (Auto) 0.1 (0.0-0.4) X10*3/uL Baso # (Auto) 0.1 (0.0-0.2) X10*3/uL Abs Immat Gran (auto) 0.01 (0.00-0.03) X10*3/uL Absolute Neuts (auto) 4.9 (2.0-8.3) x10*3/uL Absolute Nucleated RBC 0.000 (0.0-0.012) X10*3/uL Nucleated RBC % (auto) 0.0 (0.0-0.2) /100WBC Sodium 142 (135-145) mmol/L Potassium 3.8 (3.3-5.1) mmol/L Chloride 106 (96-108) mmol/L Carbon Dioxide 30 H (22-29) mmol/L Anion Gap 10 L (12-20) BUN 16 (9-16) mg/dL Creatinine 0.66 (0.5-1.4) mg/dL Estim Creat Clear Calc 105.1 Estimated GFR > 60 Random Glucose 116 H (60-115) mg/dL Lactic Acid 1.2 (0.5-2.0) mmol/L Calcium 10.8 H D (8.4-10.2) mg/dL Total Bilirubin 0.2 (0.0-1.0) mg/dL Direct Bilirubin < 0.2 (0.0-0.5) mg/dL AST 21 (5-31) U/L ALT 20 (0-31) U/L Alkaline Phosphatase 87 (39-117) U/L Total Protein 8.0 (6.5-8.0) g/dL Albumin 4.8 (3.5-5.0) g/dL Urine Color Yellow Urine Appearance Clear Urine pH 6.0 (5.0-9.0) Ur Specific [place] 1.020 (1.005-1.025) Urine Protein Negative (Neg-Trace) mg/dL Urine Glucose (UA) Negative (Negative) mg/dL Urine Ketones Negative (Negative) mg/dL Urine Blood Negative (Negative) Urine Nitrite Negative (Negative) Ur Leukocyte Esterase Trace H (Negative) Urine RBC 0-2 (0-2) /HPF Urine WBC 0-5 (0-5) /HPF Ur Squamous Epith Cells 0-2 (0-2) /HPF Urine Bacteria None Seen (None Seen) Hyaline Casts 0-2 (0-2) /LPF Discharge Plan Discharge Clinical Impression: UTI (urinary tract infection) Patient Disposition: Home, Self-Care Instructions: Urinary Tract Infection in Women (DC) Additional Instructions: WE TREATED YOU WITH INTRAVENOUS ANTIBIOTICS CALLED CEFTRIAXONE PRELIMINARILY THE RESULTS OF YOUR CULTURE SHOWED THAT THE BACTERIA WAS SENSITIVE TO THIS BUT THE LAB NEEDS TO RETESTED THESE RESULTS ARE NOT YET BACK. GIVEN THAT YOU HAD NO ELEVATED FEVER NORMAL VITAL SIGNS IN THE EMERGENCY DEPARTMENT AND REASSURING LAB WORK INCLUDING NO ELEVATED WHITE BLOOD CELL COUNT OR LACTATE WE WILL BE DISCHARGING HOME ON AN ORAL CEPHALOSPORIN ANTIBIOTIC Prescriptions: New cefpodoxime 200 mg tablet 200 mg PO BID 10 Days Qty: 20 0RF Rx Instructions: must administer with a meal/food fluconazole 150 mg tablet 150 mg PO Q3D Qty: 2 0RF No Action levothyroxine 75 mcg tablet 75 mcg PO DAILY Qty: 90 1RF lidocaine [Lidoderm] 5 % adhesive patch,medicated 1 patch topical DAILY MDD remove after 12 hours PRN (Reason: pain) Qty: 30 3RF Rx Instructions: leave on most painful area for up to 12 hrs gabapentin 100 mg capsule 100 mg PO TID Qty: 90 3RF methocarbamol 750 mg tablet 750 mg PO BEDTIME Qty: 30 3RF Zepbound 15 mg/0.5 mL pen injector 15 mg subcut QWEEK 28 Days Qty: 2 0RF fluconazole 150 mg tablet 150 mg PO Q3D Qty: 2 0RF nitrofurantoin macrocrystal 100 mg capsule 100 mg PO BID 5 Days Qty: 10 0RF Rx Instructions: must administer with a meal/food acetaminophen [Tylenol Extra Strength] 500 mg tablet 500 mg PO Q6H PRN (Reason: fever or pain) Qty: 14 0RF diclofenac sodium 3 % gel 1 appl topical BID Qty: 100 0RF Rx Instructions: apply to most painful area twice daily as needed for pain trazodone 50 mg tablet 50 mg PO BEDTIME PRN (Reason: sleep) 90 Days Qty: 90 1RF Interventions: ED Discharge Assessment Last Done: 08/12/25 15:05 Discharge Date/Time: 08/12/25 15:05 Print Language: [place]
[2025-08-12 12:56] LABS: MANUAL DIFF FLAG NO
[2025-08-12 12:57] LABS: Hematocrit 43.7 % (37.0-47.0); Hemoglobin 13.8 g/dl (12.0-16.0); Imm Gran Abs Auto 0.01 X10*3/uL (0.00-0.03); Imm Gran Pct Auto 0.1 % (0.0-0.4); Lymphocytes Absolute Auto 2.1 X10*3/uL (1.2-4.9); Mean Corpuscular HGB Conc 31.6 g/dl (31.0-35.0); Mean Corpuscular Hemoglobin 29.4 pg (27.0-33.0); Mean Corpuscular Volume 93.2 fL (80.0-98.0); NRBC Abs Auto 0.000 X10*3/uL (0.0-0.012); NRBC Pct Auto 0.0 /100WBC (0.0-0.2); Platelet Count 378 X10*3/uL (160-400); Red Blood Count 4.69 X10*6/uL (4.20-5.50); White Blood Count 7.7 X10*3/uL (4.8-10.8)
[2025-08-12 13:00] LABS: Appearance Urine Clear; Glucose Urine UA Negative (Negative); PH 6.0 (5.0-9.0); Specific Gravity - Urine 1.020 (1.005-1.025); UMIC TRIGGER UACC YES
[2025-08-12 13:24] LABS: Alanine Aminotransferase 20 U/L (0-31); Albumin Level 4.8 g/dL (3.5-5.0); Alkaline Phosphatase 87 U/L (39-117); Anion Gap 10 (12-20); Aspartate Amino Transferase 21 U/L (5-31); Blood Urea Nitrogen 16 mg/dL (9-16); Calcium 10.8 mg/dL (8.4-10.2); Carbon Dioxide 30 mmol/L (22-29); Chloride 106 mmol/L (96-108); Creatinine Clr Calc Pharmacy 105.1; Estimated Glomerular Filt Rate > 60; Potassium 3.8 mmol/L (3.3-5.1); Sodium 142 mmol/L (135-145); Total Protein 8.0 g/dL (6.5-8.0)
[2025-08-12 15:05] VITALS: BP 126/79; PULSE 90; RESP 18; TEMP 36.4; O2SAT 97
--- OUTSIDE RECORDS SUMMARY | 2025-08-12 22:35 | XMS_ITS | Clinical Summary ---
Author Organization [facility] Address [address] [place] [address] Phone Care Team Providers Care Solar Installation Manager Name Role Phone Unavailable Primary Care Provider [...] this topic Medical Devices Implanted Type Area Bottling Machine Operator Device Identifier Shelf Expiration Date Model / Serial / Lot Kit Surgiflo W 2000 Units Ster Lyo - Sn/A - [id number] Implanted:Qty : 1 on 05/06/2025 by Ermias Bradley MD at [facility] Hemostasis N/A: Spine Lumbar [employer] [id number] 08/02/2026 2994 / N/A / [id number] Kit Surgiflo W 2000 Units Ster Lyo - Sn/A - [id number] Implanted:Qty : 1 on 05/06/2025 by Ermias Bradley MD at [facility] Hemostasis N/A: Spine Lumbar [employer] [id number] 08/02/2026 2994 / N/A / [id number] Sealant Fibrin Vistaseal 2ml - [id number] 0520 - [id number] Implanted:Qty : 1 on 05/06/2025 by Ermias Bradley MD at [facility] Hemostasis N/A: Spine Lumbar [employer] 07/20/2026 VST02 / [id number] / [id number] Screw Jesusita Polyaxial Extended Tab 6.5x45mm - Sn/A - [id number] Implanted:Qty : 4 on 05/06/2025 by Ermias Bradley MD at [facility] Internal and External Fixation N/A: Spine Lumbar REYNA SP[employer]- K2M 05/06/2030 [id number] 45 / N/A / N/A Bone Graft Spine Infuse Sm - Sn/A - [id number] Implanted:Qty : 1 on 05/06/2025 by Ermias Bradley MD at [facility] [employer] BMP N/A: Spine Lumbar [employer]OR DANEK [id number] 03/03/2026 [id number] / N/A / [id number] Putty Bone Graft 2.5ml Peptide Enhanced - Sn/A - [id number] Implanted:Qty : 1 on 05/06/2025 by Ermias Bradley MD at [facility] [employer] N/A: Spine Lumbar [employer] [id number] 07/03/2027 700-025 / N/A / [id number] Putty Bone Graft 2.5ml Peptide Enhanced - Sn/A - [id number] Implanted:Qty : 1 on 05/06/2025 by Ermias Bradley MD at [facility] [employer] N/A: Spine Lumbar [employer] [id number] 08/02/2027 700-025 / N/A / [id number] Cage Spinal [id number] 6deg Tritanium Lmbr Titan Lrdtc Plif - Sn/A - [id number] Implanted:Qty : 1 on 05/06/2025 by Ermias Bradley MD at [facility] Spinal Hardware N/A: Spine Lumbar [employer] [id number] 07/07/2029 [id number] / N/A / [id number] Screw Set Phillips - Sn/A - [id number] Implanted:Qty : 4 on 05/06/2025 by Ermias Bradley MD at [facility] Spinal Hardware N/A: Spine Lumbar [employer]- K2M 05/06/2030 [id number] 1 / N/A / N/A Liu Contr Blt/Hex 5.5x40mm - Sn/A - [id number] Implanted:Qty : 2 on 05/06/2025 by Ermias Bradley MD at [facility] Spinal Hardware N/A: Spine Lumbar [employer] SP[employer]- K2M 05/06/2030 1001-E554 0 / N/A / N/A [place] [address] GENERIC Advance Directives * Full Code - [...]
== END 2025-08-12 15:05 | disposition home or self-care (01) ==
PROVIDERS: Physician Assistant Medical; Emergency Provider Emergency Medicine; PCP Internal Medicine
DX: N39.0 Urinary tract infection, site not specified (principal); L29.2 Pruritus vulvae; R30.0 Dysuria; Z79.899 Other long term (current) drug therapy
CPT/HCPCS: 36415; 80048; 80076; 81001; 81003; 83605; 85025; 87040; 96365; 99283; 99284; J0696

== ENCOUNTER 2025-09-01 08:56 | Outpatient (REF) | payer OTHER, SELFPAY ==
--- NOTE | ~2025-09-01 | XR_ITS ---
EXAMINATION: XR CHEST CLINICAL INFORMATION: pre-op COMPARISON: 03/20/2022. TECHNIQUE: 2 views of the chest were obtained. FINDINGS: The cardiac, hilar, and mediastinal contours are normal. The lungs are clear bilaterally. There is no pneumothorax or pleural effusion. There is no focal osseous or soft tissue abnormality. XR/XR chest 2V IMPRESSION: Normal chest. Electronically signed by: Justin Garcia MD 09/01/2025 09:38 AM [facility]
--- NOTE | 2025-09-01 09:03 | ECG_ITS ---
Test Reason : pre op Blood Pressure : */* mmHG Vent. Rate : 91 BPM Atrial Rate : 91 BPM P-R Int : 148 ms QRS Dur : 78 ms QT Int : 358 ms P-R-T Axes : 3 26 5 degrees QTcB Int : 440 ms Normal sinus rhythm Normal ECG When compared with ECG of 03-Oct-2022 12:31, No significant change was found Referred By: Moose Meneses Electronically Signed By: TANYA SKAGGS
[2025-09-01 09:43] LABS: Hematocrit 43.9 % (37.0-47.0); Hemoglobin 13.9 g/dl (12.0-16.0); Mean Corpuscular HGB Conc 31.7 g/dl (31.0-35.0); Mean Corpuscular Hemoglobin 29.1 pg (27.0-33.0); Mean Corpuscular Volume 92.0 fL (80.0-98.0); NRBC Abs Auto 0.000 X10*3/uL (0.0-0.012); NRBC Pct Auto 0.0 /100WBC (0.0-0.2); Platelet Count 349 X10*3/uL (160-400); Red Blood Count 4.77 X10*6/uL (4.20-5.50); White Blood Count 6.2 X10*3/uL (4.8-10.8)
[2025-09-01 09:47] LABS: INTERNATIONAL NORM RATIO 1.0 (0.9-1.1); Prothrombin Time 12.8 SEC (11.2-13.5)
[2025-09-01 09:50] LABS: Partial Thromboplastin Time 30.4 SEC (26.7-34.1)
--- OUTSIDE RECORDS SUMMARY | 2025-09-01 11:09 | XMS_ITS | Clinical Summary ---
Author Organization [facility] Address [address] [place] [address] Phone Care Team Providers Care Musculoskeletal Physiotherapist Name Role Phone Unavailable Primary Care Provider [...] this topic Medical Devices Implanted Type Area Fireworks Inspector Device Identifier Shelf Expiration Date Model / Serial / Lot Kit Surgiflo W 2000 Units Ster Lyo - Sn/A - [id number] Implanted:Qty : 1 on 05/06/2025 by Ermias Bradley MD at [facility] Hemostasis N/A: Spine Lumbar [employer] [id number] 08/02/2026 2994 / N/A / [id number] Kit Surgiflo W 2000 Units Ster Lyo - Sn/A - [id number] Implanted:Qty : 1 on 05/06/2025 by Ermias Bradley MD at [facility] Hemostasis N/A: Spine Lumbar [employer] [id number] 08/02/2026 2994 / N/A / [id number] Sealant Fibrin Vistaseal 2ml - [id number] 0520 - [id number] Implanted:Qty : 1 on 05/06/2025 by Ermias Bradley MD at [facility] Hemostasis N/A: Spine Lumbar [employer] 07/20/2026 VST02 / [id number] / [id number] Screw Jesusita Polyaxial Extended Tab 6.5x45mm - Sn/A - [id number] Implanted:Qty : 4 on 05/06/2025 by Ermias Bradley MD at [facility] Internal and External Fixation N/A: Spine Lumbar [employer] SPINE- K2M 05/06/2030 [id number] 45 / N/A / N/A Bone Graft Spine Infuse Sm - Sn/A - [id number] Implanted:Qty : 1 on 05/06/2025 by Ermias Bradley MD at [facility] [employer] BMP N/A: Spine Lumbar [employer] [id number] 03/03/2026 [id number] / N/A / [id number] Putty Bone Graft 2.5ml Peptide Enhanced - Sn/A - [id number] Implanted:Qty : 1 on 05/06/2025 by Ermias Bradley MD at [facility] [employer] N/A: Spine Lumbar [employer] [id number] 07/03/2027 700-025 / N/A / [id number] Putty Bone Graft 2.5ml Peptide Enhanced - Sn/A - [id number] Implanted:Qty : 1 on 05/06/2025 by Ermias Bradley MD at [facility] [employer] N/A: Spine Lumbar [employer] [id number] 08/02/2027 700-025 / N/A / [id number] Cage Spinal [id number] 6deg Tritanium Lmbr Titan Lrdtc Plif - Sn/A - [id number] Implanted:Qty : 1 on 05/06/2025 by Ermias Bradley MD at [facility] Spinal Hardware N/A: Spine Lumbar [employer] [id number] 07/07/2029 [id number] / N/A / D4P7-R Screw Set [place] - Sn/A - [id number] Implanted:Qty : 4 on 05/06/2025 by Ermias Bradley MD at [facility] Spinal Hardware N/A: Spine Lumbar [employer]- K2M 05/06/2030 6721-5182 1 / N/A / N/A Liu Contr Blt/Hex 5.5x40mm - Sn/A - [id number] Implanted:Qty : 2 on 05/06/2025 by Ermias Bradley MD at [facility] Spinal Hardware N/A: Spine Lumbar [employer] SPINE- K2M 05/06/2030 1001-E554 0 / N/A / N/[place] [address] GENERIC Advance Directives * Full Code - [...]
[2025-09-01 12:10] LABS: Alanine Aminotransferase 25 U/L (0-31); Albumin Level 4.6 g/dL (3.5-5.0); Alkaline Phosphatase 88 U/L (39-117); Anion Gap 14 (12-20); Aspartate Amino Transferase 24 U/L (5-31); Blood Urea Nitrogen 16 mg/dL (9-16); Calcium 9.9 mg/dL (8.4-10.2); Carbon Dioxide 28 mmol/L (22-29); Chloride 104 mmol/L (96-108); Estimated Glomerular Filt Rate > 60; Free T4 (Free Thyroxine) 1.39 ng/dL (0.71-1.85); Potassium 4.0 mmol/L (3.3-5.1); Sodium 142 mmol/L (135-145); Thyroid Stimulating Hormone 1.49 uIU/mL (0.32-4.0); Total Protein 7.4 g/dL (6.5-8.0)
== END 2025-09-01 08:57 | disposition home or self-care (01) ==
LOC: HO.XRAY 08:56
PROVIDERS: PCP Internal Medicine
DX: Z01.818 Encounter for other preprocedural examination (principal)
CPT/HCPCS: 36415; 71046; 80053; 84439; 84443; 84481; 85027; 85610; 85730; 93005

== ENCOUNTER → 2025-09-01 09:03 | Outpatient (BNV) | payer OTHER, SELFPAY | PROVIDERS: PCP Internal Medicine; Visit Provider Internal Medicine | DX: Z01.810 Encounter for preprocedural cardiovascular examination (principal) | CPT/HCPCS: 93010 ==

== ENCOUNTER → 2025-09-01 09:35 | Outpatient (BNV) | payer OTHER, SELFPAY | PROVIDERS: PCP Internal Medicine; Visit Provider Radiology Diagnostic Radiology | DX: Z01.818 Encounter for other preprocedural examination (principal) | CPT/HCPCS: 71046 ==